=== PATIENT | male | born 1965 ===

== ENCOUNTER 2017-05-20 21:20 | Inpatient (IN) | payer OTHER, MEDICAID ==
[2017-05-20 22:11] LABS: BASO % 0.8 % (0.0-2.0); EOS # 0.1 K/uL (0.0-0.7); EOS % 1.3 % (0.0-4.0); HEMOGLOBIN 13.3 g/dL (12.0-18.0); LYMPH # 2.5 K/uL (1.0-4.3); LYMPH % 52.9 % (20.0-40.0); MEAN CELL VOLUME 106.4 fL (80.0-94.0); MEAN CORPUSCULAR HEMOGLOBIN 36.8 pg (27.0-31.0); MEAN CORPUSCULAR HGB CONC 34.6 g/dL (33.0-37.0); MONO # 0.6 K/uL (0.0-0.8); NEUT # 1.5 K/uL (1.8-7.0); NRBC % 0.1 % (0.0-2.0); RBC 3.6 Mil/uL (4.40-5.90); RED CELL DISTRIBUTION WIDTH 17.4 % (11.5-14.5); WHITE BLOOD COUNT 4.6 K/uL (4.8-10.8)
[2017-05-20 22:13] LABS: SQUAMOUS EPITHIAL < 1 /hpf (0-5); URINE BILIRUBIN NEGATIVE (NEGATIVE); URINE CLARITY Clear (Clear); URINE COLOR Yellow (YELLOW); URINE GLUCOSE (UA) NORMAL (Normal); URINE LEUKOCYTE ESTERASE NEG Leu/uL (Negative); URINE NITRATE NEGATIVE (NEGATIVE); URINE PROTEIN 2+ mg/dL (NEGATIVE)
[2017-05-20 22:21] LABS: ALBUMIN 3.9 g/dL (3.5-5.0); ALT/SGPT 59 U/L (21-72); AST/SGOT 159 U/L (17-59); BLOOD UREA NITROGEN 19 mg/dL (9-20); CALCIUM 7.4 mg/dl (8.6-10.4); GFR AFRICAN-AMERICAN > 60; GFR NON-AFRICAN AMERICAN > 60
[2017-05-20 22:24] LABS: URINE BACTERIA RARE (<OCC); URINE BLOOD NEGATIVE (NEGATIVE)
[2017-05-20 22:27] LABS: BARBITURATES, UR NEGATIVE (NEGATIVE); BENZODIAZEPINES, UR POSITIVE (NEGATIVE); OPIATES, UR POSITIVE (NEGATIVE); PHENCYCLIDINE, UR NEGATIVE (NEGATIVE)
--- NOTE | 2017-05-20 22:36 | C.PDOC ---
History Of Present Illness 52 year old male presents to the ER as a prescreen for ETOH and heroin detox. Patient last drank this morning and last used heroin yesterday. Denies physical complaints at this time. Time Seen by Provider: 05/20/17 21:37 Chief Complaint (Nursing): Substance Abuse History Per: Patient History/Exam Limitations: no limitations Onset/Duration Of Symptoms: Days Current Symptoms Are (Timing): Still Present Suicide/Self Injury Attempted (Context): None Modifying Factor(s): Alcohol, Narcotics Associated Symptoms: denies: Depression, Suicidal Thoughts, Suicidal Plan Involuntary Hold By: None Recent travel outside of the [place]: No Past Medical History Reviewed: Historical Data, Nursing Documentation, Vital Signs Vital Signs: Last Vital Signs Temp 97.9 F 05/21/17 03:57 Pulse 70 05/21/17 03:57 Resp 20 05/21/17 03:57 BP 117/82 05/21/17 03:57 Pulse Ox 95 05/21/17 03:57 - Medical History PMH: No Chronic Diseases Family History: States: No Known Family Hx - Social History Hx Alcohol Use: Yes Hx Substance Use: Yes - Immunization History Hx Tetanus Toxoid Vaccination: No Hx Influenza Vaccination: No Hx Pneumococcal Vaccination: No Review Of Systems Except As Marked, All Systems Reviewed And Found Negative. Cardiovascular: Negative for: Chest Pain, Palpitations Respiratory: Negative for: Shortness of Breath Gastrointestinal: Negative for: Nausea, Vomiting, Abdominal Pain, Diarrhea Physical Exam - Physical Exam Appears: Well, Non-toxic, No Acute Distress Skin: Normal Color, Warm, Dry Head: Atraumatic, Normacephalic Eye(s): bilateral: Normal Inspection Oral Mucosa: Moist Cardiovascular: Rhythm Regular Respiratory: Normal Breath Sounds, No Rales, No Rhonchi, No Wheezing Gastrointestinal/Abdominal: Normal Exam, Bowel Sounds, Soft, No Tenderness Neurological/Psych: Oriented x3 Gait: Steady ED Course And Treatment - Laboratory Results Result Diagrams: 05/20/17 22:08 05/20/17 22:08 O2 Sat by Pulse Oximetry: 96 (Room air) Pulse Ox Interpretation: Normal Progress Note: Blood work, UA, UDS ordered and reviewed. 11:00pm- Patient medically cleared. ETOH 409, pending sobriety for detox admission. 2:30AM- Patient arousable to verbal stimuli. Pending sobriety. 4:00am- Repeat alcohol 260. Patient sleeping comfortably, in no distress. 6:00am- Patient sleeping, arousable to verbal stimuli. Pending sobriety for detox admission. Disposition - Disposition Disposition Time: 07:00 Condition: STABLE Forms: [facility] (Turkmen) - Clinical Impression Clinical Impression: Alcohol dependence, Heroin dependence - Scribe Statement The provider has reviewed the documentation as recorded by the Scribe Steve Moran All medical record entries made by the Scribe were at my direction and personally dictated by me. I have reviewed the chart and agree that the record accurately reflects my personal performance of the history, physical exam, medical decision making, and the department course for this patient. I have also personally directed, reviewed, and agree with the discharge instructions and disposition. Physician Patient Turnover Patient Signed Over To: Stephen Caldera DO Handoff Comments: pending sobriety, acceptance by crisis for detox admission
[2017-05-21] MEDS ORDERED: Alum-Mag Hydrox-Simethicone Susp (30 mL) ONE (05:10)
--- NOTE | 2017-05-21 14:26 | PCM.BM ---
<Mundo Lin - Last Filed: 05/21/17 14:24> Treatment Plan Problems - Problems identified on initial assessmt ETOH Depend Time Initiated: 14:25 Assessment reference: NA Status: Active Treatment assets and liabiliti Patient Assests: cooperative, ADL independent Patient Liabilities: financial problems, poor support system, substance abuse - Milieu Protocol Maintain good personal hygiene: daily Encourage regular showers, daily Remind patient to perform daily oral care, daily Assist patient to perform ADL's Maintain personal safety: every shift Educate patient to report safety concerns to staff, every shift Monitor environment for contraband/sharps Medication safety: Monitor for expected outcome, potential side effects: every shift, Assess barriers to learning: every shift, Assess readiness for medication education: every shift <Vandana Ma - Last Filed: 05/26/17 11:51> Family Contact Family involvement: Patient does not wish Family/SO involvement Family contact: Patient declines to allow family contact at present - Goals for Treatment Patient goals for treatment: COMPLETE DETOX AND TRANSITION TO IOP AT [facility]. Discharge/Continuing Care - Education Needs Education Needs: Patient Medication, Patient Diagnosis/Disease Process, Patient Coping Skills, Patient Anger Management skills, Patient Placement options, Patient Community resources - Discharge Discharge Criteria: No longer exhibiting s/s of withdrawal, Reduction of target symptoms Discharge to:: Home - Treatment Team Participation Patient/Family/SO Statement: 05/26/17 11:51 "I WANNA GO TO [facility] OUTPATIENT..." Discussed with Family/SO: No Was Patient/Family/SO present at Treatment Team Meeting: Yes <Lenka King - Last Filed: 05/26/17 22:17> - Diagnosis (1) Alcohol dependence Status: Acute Interventions: 05/26/17 22:17 * Assess 7x/week regarding severity of withdrawal * Educate regarding risks, benefits, side effects and alternatives of medications * Use Motivational Interviewing for abstinence * Use CBT for relapse prevention * Medication management for withdrawal symptoms * Encourage medication assisted treatment * (2) Heroin dependence Status: Acute Interventions: 05/26/17 22:17 * Assess 7x/week regarding severity of withdrawal * Educate regarding risks, benefits, side effects and alternatives of medications * Use Motivational Interviewing for abstinence * Use CBT for relapse prevention * Medication management for withdrawal symptoms * Encourage medication assisted treatment *
[2017-05-21] MEDS ORDERED: Ondansetron Hcl 2 mg/2.5 ml Oral Sol PO PRN (15:00)
[2017-05-21] MEDS: Aluminum Hydroxide/Magnesium Hydroxide Susp (30 mL) PO PRN (17:20)
[2017-05-22] MEDS: Aluminum Hydroxide/Magnesium Hydroxide Susp (30 mL) PO PRN (08:41)
[2017-05-22] MEDS ORDERED: Buprenorphine Hydrochloride 2 mg SL ONE ×2 (13:55→16:45)
[2017-05-22] MEDS ORDERED: Buprenorphine Hydrochloride 8 mg SL ONE ×2 (14:00→16:00)
[2017-05-22] MEDS ORDERED: Buprenorphine Hydrochloride 2 mg SL SCH (16:30)
--- NOTE | 2017-05-22 20:31 | PCM.PSYCH ---
Initial Psychiatric Evaluation - Initial Psychiatric Evaluation Legal Status: Capacity Chief Complaint (in patient's own words): I DO NOT WANT TO USE ANY MORE Patient's Reaction to Hospitalization: I AM RELIEVED TO GET HELP. History of Present Illness and Precipitating Events: pT IS A 53 YEAR OLD [place] DOM[employer]ED, ,UNEMPLOYED MALE ON DISABILITY WHO IS SEEKING DETOX FROM HEROIN. hE CAME TO THE [place] WHEN HE WAS 30 YEAR OLD. HE HAS 2 ADULT CHILDREN. HIS MOTHER IS ,HIS FATHER IS ALIVE, HE HAS SIX BROTHERS AND SIX SISTERS. HE ISTHE YOUNGEST IN THE FAMILY.THERE IS NO FAMILY HISTORY OF MENTAL ILLNESS OR SUBSTANCE ABUSE FAR CAN BE DETERMINED. HE HAS NO LEGAL OR HISTORY. HE WENT UP TO THE 5TH GRADE. HE SNORTS HEROIN ABOUT 15 BAGS A DAY AND HE STARTED WHEN HE WAS 23. HE DRINKS A LITER OF VODKA A DAY AND STARTED AGE 28. HE HAS LITTLE ENERGY, LITTLE MOTIVATION. hE IS COMPLAINING OF BEING COLD. HAVING NAUSEA AND ACHES AND PAINS. HE ALSO HAS HAND TREMORS. Current Medications: Active Medications Generic Name Dose Route Start Last Admin Trade Name Freq PRN Reason Stop Dose Admin Al Hydrox/Mg Hydrox/Simethicone 30 ml 05/21/17 17:13 05/22/17 08:41 Maalox 30 Ml PO 30 ml Q8 PRN Administration Indigestion / Heartburn Amlodipine Besylate 10 mg 05/23/17 10:00 Norvasc PO DAILY GERALD Buprenorphine HCl 2 mg 05/22/17 16:30 05/22/17 16:33 Subutex SL Not Given DAILY GERALD Clonidine HCl 0.1 mg 05/21/17 13:06 05/22/17 13:47 Catapres PO 0.1 mg Q6H PRN Administration Symptoms of alcohol withdrawl Hydroxyzine HCl 25 mg 05/21/17 16:34 05/22/17 16:51 Atarax PO 25 mg Q6 PRN Administration Anxiety Ibuprofen 600 mg 05/21/17 17:12 05/22/17 08:39 Motrin Tab PO 600 mg Q8 PRN Administration Pain, moderate (4-7) Lorazepam 1 mg 05/22/17 20:00 Ativan PO 05/25/17 19:59 Q8H GERALD Taper Ondansetron HCl 4 mg 05/21/17 15:00 05/22/17 11:15 Zofran PO 4 mg Q6H PRN Administration Nausea/Vomiting Trazodone HCl 50 mg 05/21/17 16:35 05/21/17 21:35 Desyrel PO 50 mg HS PRN Administration Insomnia Past Psychiatric History - Past Psychiatric History Previous Treatment History: None Pertinent Medical Hx (Current Medical&Sleep Prob, Allergies): Allergies Allergy/AdvReac Type Severity Reaction Status Date / Time No Known Allergies Allergy Unverified 05/20/17 21:40 No Known Home Med 05/21/17 Review of Systems - Review of Systems Systems not reviewed;Unavailable: Other - Constitutional Constitutional: Chills, Sweats - EENT Eyes: UNREMARKABLE Ears: UNREMARKABLE Nose/Mouth/Throat: UNREMARKABLE - Cardiovascular Cardiovascular: UNREMARKABLE - Respiratory Respiratory: UNREMARKABLE - Gastrointestinal Gastrointestinal: Nausea - Genitourinary Genitourinary: UNREMARKABLE - Reproductive: Male Reproductive:Male: UNREMARKABLE - Musculoskeletal Musculoskeletal: Arthralgias, Myalgias - Integumentary Integumentary: UNREMARKABLE - Neurological Neurological: UNREMARKABLE - Psychiatric Psychiatric: UNREMARKABLE - Endocrine Endocrine: UNREMARKABLE - Hematologic/Lymphatic Hematologic: UNREMARKABLE Mental Status Examination - Personal Presentation Personal Presentation: Looks older than stated age - Affect Affect: Constricted - Motor Activity Motor Activity: Calm - Reliability in Providing Information Reliability in Providing Information: Good - Speech Speech: Organized - Mood Mood: Anxious - Formal Thought Process Formal Thought Process: No Impairment - Obsessions/Compulsions Obsessions: None Compulsions: None - Cognitive Functions Orientation: Person, Place, Situation, Time Sensorium: Alert Attention/Concentration: Attentive Abstract Thinking: [place] Estimate of Intelligence: Average Judgement: Intact, as evidence by: Good judgement Memory: Recent intact, as evidence by: Ability to recall events of the day, Remote intact, as evidenced by: Abilit to recall sig. life events - Risk Risk: Withdrawal - Strength & Assets Inventory Strength & Assets Inventory: Employment history, Life experience, Cooperative - Limitations Limitations: Living alone DSM 5 DX - DSM 5 DSM 5 Diagnosis: OPIOID USE DISORDER SEVERE OPIOID WITHDRAWAL ALCOHOL USE DISORDER SEVERE ALCOHOL WITHDRAWAL HTN - Recommended/Plan of Treatment Treatment Recommendations and Plan of Treatment: ALCOHOL WITHDRAWAL LIBRIUM TAPER ALCOHOL USE DISORDER GROUP MILIEU, RECREATIONAL THERAQPY NM CBT SUPPORTIVE PSYCHOTHERAPY OPIOID WITHDRAWAL SUBUTEX TAPER OPIOID USE DISORDER GROUPMILIEU [id number] THERAPY NM CBT SUPPORTIVE PSYCHOTHERAPY [facility] Projected ELOS: 5B DAYS Prognosis: GOOD Discharge Plan and Discharge Criteria: NO ACUTE SIGNS OF WITHDRAWAL - Smoking Cessation Smoking Cessation Initiated: Yes
[2017-05-23] MEDS ORDERED: Buprenorphine Hydrochloride 2 mg SL ONE (10:00)
--- NOTE | 2017-05-23 10:03 | PCM.PYCHPN ---
Psychiatric Progress Note - Psychiatric Progress Note Patient seen today, length of contact: 15 min Patient Chief Complaint: I am feeling little better.' Problems Identified/Issues Discussed: Patient seen and evaluated, chart reviewed and discussed with the nurse. He reports irritable mood but denies any feelings of hopelessness and helplessness. He still reports withdrawal symptoms including nausea, headaches, cramps and sweating. He denies any SI/HI/AVH. However, he remained isolated, confined and withdrawn. He is taking medication and denies any side effects. He needs more time for stabilization. Supportive therapy and psychoeducation were given. Medication Change: Yes (Ativan, subutex taper) Medical Record Reviewed: Yes Mental Status Examination - Cognitive Function Orientation: Person, Place, Situation, Time Memory: Intact Attention: WNL Concentration: Poor Association: WNL Fund of Knowledge: Poor - Mood Mood: Anxious - Affect Affect: Constricted - Speech Speech: Soft - Formal Thought Process Formal Thought Process: No Impairment - Suicidal Ideation Suicidal Ideation: No - Homicidal Ideation Homicidal Ideation: No Goal/Treatment Plan - Goal/Treatment Plan Need for Continued Stay: Severe depression anxiety, Severe functional impairment Progress Toward Problem(s) and Goals/Treatment Plan: Alcohol use disorder severe CBT Psychoeducation Supportive therapy, individual therapy Use MO for abstinence Alcohol withdrawal CBT Psychoeducation Supportive therapy, individual therapy Ativan taper when scoring Ativan PRN Opioid use disorder severe CBT Psychoeducation Supportive therapy, individual therapy Use MO for abstinence Opioid withdrawal CBT Psychoeducation Supportive therapy, individual therapy Clonidine when necessary Subutex taper - Smoking Cessation Smoking Cessation Initiated: No
[2017-05-24] MEDS: Buprenorphine Hydrochloride 2 mg SL SCH (09:54)
--- NOTE | 2017-05-24 12:54 | PCM.PYCHPN ---
Psychiatric Progress Note - Psychiatric Progress Note Patient seen today, length of contact: 15 min Patient Chief Complaint: "I feel good." Problems Identified/Issues Discussed: The pt is seen, chart reviewed, case discussed with staff. Support given, CBT and [place] used briefly No new symptoms reported, improving slowly and needs more time No SEs from medications, risks discussed. After care discussed Medication Change: Yes (Ativan, subutex taper; detox changes daily) Medical Record Reviewed: Yes Mental Status Examination - Cognitive Function Orientation: Person, Place, Situation, Time Memory: Intact Attention: WNL Concentration: WNL Association: WNL - Mood Mood: Neutral - Affect Affect: Constricted - Speech Speech: Soft - Formal Thought Process Formal Thought Process: No Impairment - Suicidal Ideation Suicidal Ideation: No - Homicidal Ideation Homicidal Ideation: No Goal/Treatment Plan - Goal/Treatment Plan Need for Continued Stay: Discharge may exacerbated symptoms, Severe functional impairment Progress Toward Problem(s) and Goals/Treatment Plan: Continue medications Support and psychoeducation daily Attend groups and activities daily After care planning by NOEL Estimated Date of D/C: 05/27/17 - Smoking Cessation Smoking Cessation Initiated: No
[2017-05-25] MEDS: Buprenorphine Hydrochloride 2 mg SL SCH (09:11)
--- NOTE | 2017-05-25 14:17 | PCM.PYCHPN ---
Psychiatric Progress Note - Psychiatric Progress Note Patient seen today, length of contact: 15 min Patient Chief Complaint: "I feel good." Problems Identified/Issues Discussed: The pt is seen, chart reviewed, case discussed with staff. Support given, CBT and [place] used briefly No new symptoms reported, improving slowly and needs more time No SEs from medications, risks discussed. After care discussed Medication Change: Yes (Ativan, subutex taper; detox changes daily) Medical Record Reviewed: Yes Mental Status Examination - Cognitive Function Orientation: Person, Place, Situation, Time Memory: Intact Attention: WNL Concentration: WNL Association: WNL - Mood Mood: Neutral - Affect Affect: Broad - Speech Speech: Soft - Formal Thought Process Formal Thought Process: No Impairment - Suicidal Ideation Suicidal Ideation: No - Homicidal Ideation Homicidal Ideation: No Goal/Treatment Plan - Goal/Treatment Plan Need for Continued Stay: Discharge may exacerbated symptoms, Severe functional impairment Progress Toward Problem(s) and Goals/Treatment Plan: Continue medications Support and psychoeducation daily Attend groups and activities daily After care planning by NOEL Estimated Date of D/C: 05/27/17
[2017-05-26] MEDS: Buprenorphine Hydrochloride 2 mg SL SCH (09:08)
[2017-05-26 14:02] VITALS: RESP 18
--- NOTE | 2017-05-26 20:49 | PCM.PYCHPN ---
Psychiatric Progress Note - Psychiatric Progress Note Patient seen today, length of contact: 15 min Patient Chief Complaint: "The pt is seen, chart reviewed, case discussed with staff. The pt is compliant with medications and reports no side-effects. Symptoms are improving but needs more time to stabilize. After care discussed, support and psychoeducation given. Medication Change: Yes (detox changes daily) Medical Record Reviewed: Yes Mental Status Examination - Cognitive Function Orientation: Person, Place, Situation, Time Memory: Intact Attention: WNL Concentration: WNL Association: WNL - Mood Mood: Neutral - Affect Affect: Broad - Speech Speech: Soft - Formal Thought Process Formal Thought Process: No Impairment - Suicidal Ideation Suicidal Ideation: No - Homicidal Ideation Homicidal Ideation: No Goal/Treatment Plan - Goal/Treatment Plan Need for Continued Stay: Discharge may exacerbated symptoms, Severe functional impairment Progress Toward Problem(s) and Goals/Treatment Plan: Subutex detox As needed medications Gabapentin for augmentation Attend groups and activities Supportive therapy and psychoeducation [place] for abstinence CBT for relapse prevention Encourage MAT Refer to rehab or IOP Attend self-help groups as well Estimated Date of D/C: 05/27/17
[2017-05-27] MEDS: Buprenorphine Hydrochloride 2 mg SL SCH (08:59)
[2017-05-27 09:53] VITALS: BP 117/80; PULSE 96; TEMP 97.6; O2SAT 99
--- NOTE | 2017-05-27 11:29 | PCM.PYCHDC ---
Mental Status Examination - Mental Status Examination Orientation: Person, Place, Situation, Time Memory: Intact Mood: Neutral Affect: Broad Speech: Appropriate, Soft Attention: WNL Concentration: WNL Association: WNL Formal Thought Process: No Impairment Suicidal Ideation: No Current Homicidal Ideation?: No Discharge Summary - Discharge Note Reason for Hospitalization: Heroin Detox Consultations:: List each consultation separately and include: 1. Reason for request. 2. Findings. 3. Follow-up Summary of Hospital Course include:: 1. Description of specific treatment plan utilized for patients during their course of treatmen. 2. Summarize the time- course for resolution of acute symptoms and/or regressed behaviors. 3. Describe issues identified and worked on during hospitalization. 4. Describe medication utilized. 5. Describe medical problems identified and treated. 6. Reassessment of suicide risk Summary of Hospital Course: HPI: Patient is a 53 year old [place] domicile, , unemployed male on disability who is seeking detox from heroin. He came to the when he was 30 years old. He has 2 adult children. His mother is , his father is alive. He has 6 brothers and 6 sisters. He is the youngest in the family. There is no family history of mental illness or substance abuse as far as he can be determined. He has no legal or history. He went up to the 5th grade. He snorts heroin, about 15 bags a day and he started when he was 23. He drinks a liter of vodka a day and started age 28. He has little energy, little motivation. He is complaining of being cold. Having nausea and aches and pains. He also has hand tremors. Hospital Course: Theptwas admitted and started on treatment with psychotherapy, support, psychoeducationand medications. PA and CBT used. Theptattended groups and activities, as well as milieu therapy. All the risks and benefits of medications are discussed and the patient understood and agreed. Theptimproved with the treatments provided. After care discussedwith thepatient. - Final Diagnosis (DSM 5) Condition upon Discharge: STABLE DSM 5: Alcohol Use Disorder Disposition: HOME/ ROUTINE Follow-up Treatment Plan: Continue below medicationsafter discharge. Follow after care wayne discussed. Use relapse prevention skills. Return to ERor call 911if suicidal, homicidalor symptoms relapse. Stay away from stress, alcohol and drugs. See primary doctor regularlyand get labs. Prescriptions/Medication Reconciliation: amLODIPine [Norvasc] 10 mg PO DAILY #30 tab traZODone [Desyrel] 50 mg PO HS PRN #30 tab PRN Reason: Insomnia - Smoking Cessation Smoking Cessation Medication prescribed: Yes
== END 2017-05-27 11:30 | disposition home or self-care (01) | DRG 895 ==
LOC: C.ER 21:20 → C.7D 05-21 11:38
PROVIDERS: ADMIT Psychiatry & Neurology Psychiatry; ATTEND Psychiatry & Neurology Psychiatry
PROC: HZ2ZZZZ Detoxification Services for Substance Abuse Treatment (ICD-10-PCS; principal; 2017-05-21)
PROC: HZ52ZZZ Individual Psychotherapy for Substance Abuse Treatment, Cognitive-Behavioral (ICD-10-PCS; 2017-05-21)
PROC: HZ42ZZZ Group Counseling for Substance Abuse Treatment, Cognitive-Behavioral (ICD-10-PCS; 2017-05-21)
PROC: HZ59ZZZ Individual Psychotherapy for Substance Abuse Treatment, Supportive (ICD-10-PCS; 2017-05-21)
PROC: HZ56ZZZ Individual Psychotherapy for Substance Abuse Treatment, Psychoeducation (ICD-10-PCS; 2017-05-21)
PROC: HZ46ZZZ Group Counseling for Substance Abuse Treatment, Psychoeducation (ICD-10-PCS; 2017-05-21)
DX: F10.230 Alcohol dependence with withdrawal, uncomplicated (principal); F11.23 Opioid dependence with withdrawal; Y90.9 Presence of alcohol in blood, level not specified

== ENCOUNTER 2017-08-06 19:30 | Emergency (ER) | payer OTHER ==
[2017-08-06 19:51] VITALS: BP 153/102; PULSE 112; RESP 20; TEMP 98.2; O2SAT 95
--- NOTE | 2017-08-06 20:06 | C.PDOC ---
History Of Present Illness 52 y/o male, whose PMH includes HTN, and substance abuse ETOH and heroin, who presents to the ED, accompanied by friend, requesting a detoxification bed. Patient also reports having vomiting and diarrhea for a few days. His last drink was yesterday. patient denies other complaints. Time Seen by Provider: 08/06/17 19:55 Chief Complaint (Nursing): Substance Abuse History Per: Patient History/Exam Limitations: no limitations Onset/Duration Of Symptoms: Days Current Symptoms Are (Timing): Still Present Suicide/Self Injury Attempted (Context): None Modifying Factor(s): Alcohol, Narcotics Recent travel outside of the [place]: No Additional History Per: Friend Past Medical History Reviewed: Historical Data, Nursing Documentation, Vital Signs Vital Signs: Last Vital Signs Temp 98.2 F 08/06/17 19:46 Pulse 112 H 08/06/17 19:46 Resp 20 08/06/17 19:46 BP 153/102 H 08/06/17 19:46 Pulse Ox 95 08/06/17 20:10 - Medical History PMH: HTN Denies: Anxiety, Bipolar Disorder, Depression, Diabetes, Hepatitis, HIV, Paranoia, Post Traumatic Stress Disorder, Chronic Kidney Disease, Schizophrenia , Seizures, Sexually Transmitted Disease Surgical History: Denies: Appendectomy - [facility] DETOXIFICATION SERVICES FOR SUBSTANCE ABUSE TREATMENT (05/21/17) GROUP INSIDE WIRER FOR SUBSTANCE ABUSE TREATMENT, PSYCHOEDUCATION (05/21/17) GROUP INSIDE WIRER FOR SUBSTANCE ABUSE, COGNITIVE BEHAVIORAL (05/21/17) INDIV PSYCHOTHERAPY FOR SUBSTANCE ABUSE TREATMENT, SUPPORT (05/21/17) INDIV PSYCHOTHERAPY FOR SUBSTANCE ABUSE, COGNITIV BEHAVIORAL (05/21/17) INDIV PSYCHOTHERAPY FOR SUBSTANCE ABUSE, PSYCHOEDUCATION (05/21/17) Family History: States: Unknown Family Hx - Social History Hx Alcohol Use: Yes Hx Substance Use: Yes - Immunization History Hx Tetanus Toxoid Vaccination: No Hx Influenza Vaccination: Yes Hx Pneumococcal Vaccination: No Review Of Systems Except As Marked, All Systems Reviewed And Found Negative. Constitutional: Negative for: Fever Cardiovascular: Negative for: Chest Pain Gastrointestinal: Positive for: Vomiting, Diarrhea Psych: Positive for: Withdrawal Physical Exam - Physical Exam Appears: Well, No Acute Distress Skin: Normal Color, Warm, Dry Head: Atraumatic, Normacephalic Eye(s): bilateral: Normal Inspection, PERRL, EOMI Cardiovascular: Rhythm Regular Respiratory: Normal Breath Sounds, No Rales, No Rhonchi, No Wheezing Gastrointestinal/Abdominal: Normal Exam, Bowel Sounds (active), Soft, No Distention, No Guarding, No Rebound Neurological/Psych: Oriented x3, Normal Speech, Normal Motor ED Course And Treatment O2 Sat by Pulse Oximetry: 95 (room air) Pulse Ox Interpretation: Normal Medical Decision Making Medical Decision Making: Progress Notes: Case was discussed with psych for detox availability, but there is currently none. Upon informing patient about this, him and his friend did not want any further evaluation for his vomiting and diarrhea, and states they will go to another medical center where they have beds available. abd soft no ttp. no tremors. ambulatory steady gait. Disposition - Disposition Referrals: Alcoholics Anonymous [Outside] [facility] [Outside] [facility] [Outside] Disposition: HOME/ ROUTINE Disposition Time: 08:00 Condition: STABLE Additional Instructions: return to er with worsening symptoms or concerns. Instructions: Nausea and Vomiting, Adult, Alcohol Abuse and Alcoholism (DC), Drug Abuse Treatment Forms: [employer] ([place]) - Clinical Impression Clinical Impression: Alcohol dependence, Vomiting and diarrhea - Scribe Statement The provider has reviewed the documentation as recorded by the Scribe Scribe Attestation: Elva Carr MD Scribe Attestation: All medical record entries made by the Scribe were at my direction and personally dictated by me. I have reviewed the chart and agree that the record accurately reflects my personal performance of the history, physical exam, medical decision making, and the department course for this patient. I have also personally directed, reviewed, and agree with the discharge instructions and disposition.
== END 2017-08-06 20:05 | disposition home or self-care (01) ==
LOC: C.ER 19:30
DX: F10.20 Alcohol dependence, uncomplicated (principal); Y90.9 Presence of alcohol in blood, level not specified; R11.10 Vomiting, unspecified; R19.7 Diarrhea, unspecified

== ENCOUNTER 2017-08-12 14:36 | Inpatient (IN) | payer OTHER, MEDICAID ==
[2017-08-12 14:53] VITALS: BMI 25.9
[2017-08-12 16:03] LABS: BASO % 0.9 % (0.0-2.0); EOS % 1.2 % (0.0-4.0); HEMOGLOBIN 13.1 g/dL (12.0-18.0); LYMPH # 1.9 K/uL (1.0-4.3); MEAN CELL VOLUME 107.9 fL (80.0-94.0); MEAN CORPUSCULAR HEMOGLOBIN 37.3 pg (27.0-31.0); MEAN CORPUSCULAR HGB CONC 34.6 g/dL (33.0-37.0); MEAN PLATELET VOLUME 9.2 fL (7.2-11.7); MONO # 0.4 K/uL (0.0-0.8); MONO % 12.4 % (0.0-10.0); NEUT # 0.7 K/uL (1.8-7.0); NEUT % 22.5 % (50.0-75.0); NRBC % 0.3 % (0.0-2.0); RBC 3.51 Mil/uL (4.40-5.90); RED CELL DISTRIBUTION WIDTH 18.5 % (11.5-14.5); WHITE BLOOD COUNT 3.1 K/uL (4.8-10.8)
[2017-08-12 16:19] LABS: ALBUMIN 4.1 g/dL (3.5-5.0); ALT/SGPT 90 U/L (21-72); AST/SGOT 332 U/L (17-59); BLOOD UREA NITROGEN 12 mg/dL (9-20); CALCIUM 8.3 mg/dl (8.6-10.4); GFR AFRICAN-AMERICAN > 60; GFR NON-AFRICAN AMERICAN > 60
[2017-08-12 16:20] LABS: SQUAMOUS EPITHIAL < 1 /hpf (0-5); URINE BACTERIA RARE (<OCC); URINE BILIRUBIN NEGATIVE (NEGATIVE); URINE BLOOD 2+ (NEGATIVE); URINE CLARITY Hazy (Clear); URINE COLOR Amber (YELLOW); URINE GLUCOSE (UA) NORMAL (Normal); URINE LEUKOCYTE ESTERASE NEG Leu/uL (Negative); URINE PROTEIN 3+ mg/dL (NEGATIVE)
[2017-08-12 16:40] LABS: BARBITURATES, UR NEGATIVE (NEGATIVE); BENZODIAZEPINES, UR NEGATIVE (NEGATIVE); PHENCYCLIDINE, UR NEGATIVE (NEGATIVE)
[2017-08-12 16:46] LABS: OPIATES, UR POSITIVE (NEGATIVE)
--- NOTE | 2017-08-12 17:12 | C.PDOC ---
History Of Present Illness The patient is here for detox from heroin and alcohol. The patient reports that he drinks and uses daily. Denies nausea, vomiting, diarrhea, GI bleeding, chest pain, SOB. Time Seen by Provider: 08/12/17 14:59 Chief Complaint (Nursing): Substance Abuse History Per: Patient History/Exam Limitations: no limitations Onset/Duration Of Symptoms: Days Current Symptoms Are (Timing): Still Present Suicide/Self Injury Attempted (Context): None Recent travel outside of the [place]: No Past Medical History Vital Signs: Last Vital Signs Temp 97.5 F L 08/12/17 14:53 Pulse 104 H 08/12/17 14:53 Resp 19 08/12/17 14:53 BP 128/87 08/12/17 14:53 Pulse Ox 97 08/12/17 18:05 - Medical History PMH: HTN Denies: Anxiety, Bipolar Disorder, Depression, Diabetes, Hepatitis, HIV, Paranoia, Post Traumatic Stress Disorder, Chronic Kidney Disease, Schizophrenia , Seizures, Sexually Transmitted Disease Surgical History: Denies: Appendectomy - [facility] Procedures DETOXIFICATION SERVICES FOR SUBSTANCE ABUSE TREATMENT (05/21/17) GROUP FISH ICER FOR SUBSTANCE ABUSE TREATMENT, PSYCHOEDUCATION (05/21/17) GROUP FISH ICER FOR SUBSTANCE ABUSE, COGNITIVE BEHAVIORAL (05/21/17) INDIV PSYCHOTHERAPY FOR SUBSTANCE ABUSE TREATMENT, SUPPORT (05/21/17) INDIV PSYCHOTHERAPY FOR SUBSTANCE ABUSE, COGNITIV BEHAVIORAL (05/21/17) INDIV PSYCHOTHERAPY FOR SUBSTANCE ABUSE, PSYCHOEDUCATION (05/21/17) Family History: States: Unknown Family Hx - Social History Hx Tobacco Use: No Hx Alcohol Use: Yes Hx Substance Use: Yes - Immunization History Hx Tetanus Toxoid Vaccination: No Hx Influenza Vaccination: Yes (2018) Hx Pneumococcal Vaccination: No Review Of Systems Except As Marked, All Systems Reviewed And Found Negative. Physical Exam - Physical Exam Appears: Non-toxic, No Acute Distress Skin: Normal Color, Warm, No Rash Head: Atraumatic, Normacephalic Eye(s): bilateral: Normal Inspection, PERRL, EOMI Oral Mucosa: Moist Throat: No Erythema, No Exudate Neck: Normal ROM, Supple Chest: Symmetrical Cardiovascular: Rhythm Regular, No Friction Rub, No Murmur Respiratory: Normal Breath Sounds Gastrointestinal/Abdominal: Bowel Sounds (active), Soft, No Tenderness, Distention (mild) Back: Normal Inspection, No CVA Tenderness Extremity: Normal ROM, No Tenderness, No Swelling Neurological/Psych: Oriented x3, Normal Speech, Normal Motor Gait: Steady ED Course And Treatment - Laboratory Results Result Diagrams: 08/12/17 15:56 08/12/17 15:56 O2 Sat by Pulse Oximetry: 97 (on RA) Pulse Ox Interpretation: Normal Medical Decision Making Medical Decision Making: The abdominal has been present for 2 months and is chronic. Abdomen is mild distended, soft and non-tender and patient is tolerating PO normally. Patient is complaining of tremors and Librium PO ordered. The patient is medically cleared for detox. Disposition - Disposition Disposition: HOSPITALIZED Disposition Time: 18:04 Condition: FAIR Forms: [employer] (German) - POA Present On Arrival: None - Clinical Impression Clinical Impression: Heroin dependence, Alcohol dependence
--- NOTE | 2017-08-13 08:49 | RAD ---
HISTORY: Possible Pneumonia COMPARISON: 08/13/2017. FINDINGS: LUNGS: The lungs are well inflated and clear. There are stable small calcified granulomas in the right upper lobe. PLEURA: No significant pleural effusion identified, no pneumothorax apparent. CARDIOVASCULAR: Normal. OSSEOUS STRUCTURES: No significant abnormalities. VISUALIZED UPPER ABDOMEN: Normal. OTHER FINDINGS: None. IMPRESSION: No active pulmonary disease.
--- NOTE | 2017-08-13 18:34 | PCM.PSYCH ---
Initial Psychiatric Evaluation - Initial Psychiatric Evaluation Type of Admission: Voluntary Legal Status: Capacity Chief Complaint (in patient's own words): I want help for my substance use History of Present Illness and Precipitating Events: Patient is a 52 years old, , unemployed, on SSI, male with no previous psychiatric history was admitted due to withdrawing from alcohol and heroin. Patient was evaluated with Armenian-speaking staff on the unit. Patient reported he started drinking alcohol at 6 years of age. Alcohol is his drug of choice. Currently he was drinking 4 pints of alcohol daily. Last used yesterday. His longest period of abstinence was 5 years, 5 years ago history of one previous detox but no rehabilitation. Started using heroin at 16 years of age, increased gradually. Currently he was using 10 bags daily, intranasally. Last used yesterday. Denied use of any other drugs including cocaine and cannabis. Denied smoking cigarettes. Patient was born in [place], moved to [facility] 20 years ago with family. Not working and is on SSI. and has 6 grown up children. Lives with friends. Patient wants to go back to [place] after detox. Current Medications: Active Medications Generic Name Dose Route Start Last Admin Trade Name Freq PRN Reason Stop Dose Admin Gabapentin 300 mg 08/13/17 18:00 08/13/17 17:31 Neurontin PO 300 mg BID GERALD Administration Hydroxyzine HCl 25 mg 08/13/17 15:40 Atarax PO Q6 PRN Anxiety Lorazepam 2 mg 08/13/17 01:45 08/13/17 17:31 Ativan PO 08/18/17 01:44 2 mg Q4H GERALD Administration Taper Lorazepam 1 mg 08/13/17 12:06 08/13/17 15:41 Ativan PO 1 mg Q6 PRN Administration Anxiety Methadone HCl 15 mg 08/14/17 10:00 Methadone PO 08/17/17 09:59 Q24H GERALD Taper Trazodone HCl 100 mg 08/13/17 22:00 Desyrel PO HS GERALD Past Psychiatric History - Past Psychiatric History Previous Treatment History: None History of Abuse: None reported History of ETOH/Drug Use: See HPI History of Family Illness: None reported Pertinent Medical Hx (Current Medical&Sleep Prob, Allergies): Allergies Allergy/AdvReac Type Severity Reaction Status Date / Time No Known Allergies Allergy Verified 08/12/17 14:51 Labetalol [Trandate] 100 mg PO BID 08/12/17 Thiamine Mononitrate [Optimum Vitamin B-1] 100 mg PO DAILY 08/12/17 Review of Systems - Psychiatric Psychiatric: Anxiety, Other Mental Status Examination - Personal Presentation Personal Presentation: Looks stated age - Affect Affect: Other (Appropriate) - Motor Activity Motor Activity: Calm - Reliability in Providing Information Reliability in Providing Information: Fair - Speech Speech: Organized - Mood Mood: Anxious - Formal Thought Process Formal Thought Process: No Impairment Additional comments: None - Hallucinations/Delusions Hallucinations: Other (None reported) Delusions: Other - Obsessions/Compulsions Obsessions: None Compulsions: None - Cognitive Functions Orientation: Person, Place, Situation, Time Sensorium: Alert Attention/Concentration: Attentive Abstract Thinking: [place] Estimate of Intelligence: Average Judgement: Intact, as evidence by: Insight regarding need for hospitalization Memory: Recent intact, as evidence by: Ability to recall events of the day, Remote intact, as evidenced by: Ability to recall historical events - Risk Risk: Withdrawal, Diminished functioning - Strength & Assets Inventory Strength & Assets Inventory: Cooperative - Limitations Limitations: Other DSM 5 DX - DSM 5 DSM 5 Diagnosis: Alcohol use disorder severe Opiate use disorder severe - Recommended/Plan of Treatment Treatment Recommendations and Plan of Treatment: Patient education Supportive therapy CBT for relapse prevention NV for abstinence Will start methadone for opiate withdrawal symptoms We will start Ativan detox protocol for alcohol withdrawal symptoms Other when necessary medications Patient wants to go to [place] after finishing detox. Projected ELOS: 4-5 days - Smoking Cessation Smoking Cessation Initiated: No Reason for not providing: Patient does not smoke cigarettes
--- NOTE | 2017-08-14 22:25 | PCM.PYCHPN ---
Psychiatric Progress Note - Psychiatric Progress Note Patient seen today, length of contact: 15 Minutes Patient Chief Complaint: I'm feeling little better Problems Identified/Issues Discussed: Patient seen, chart reviewed, case discussed with the staff. Issues related to illness and treatment were discussed with the patient. Reported compliant with treatment with no adverse affects. Tolerating treatment very well. Reported feeling better, still has withdrawal symptoms. Mood reported as anxious. Affect appropriate. Encouraged time of evaluation, patient was awake alert oriented 3, had no delusions, no auditory or visual hallucinations, no suicidal ideations or homicidal ideations. Medical Problems: None reported Diagnostic Results: Reviewed DSM 5 Symptoms Update: Some improvement with treatment Medication Change: No Medical Record Reviewed: Yes Mental Status Examination - Cognitive Function Orientation: Person, Place, Situation, Time Memory: Intact Attention: WNL Concentration: WNL Association: [facility] Fund of Knowledge: [facility] Decription of patient's judgement and insights: Fair - Mood Mood: Anxious - Affect Affect: Other (Appropriate) - Speech Speech: Appropriate - Formal Thought Process Formal Thought Process: No Impairment Psychotic Thoughts and Behaviors: None - Suicidal Ideation Suicidal Ideation: No - Homicidal Ideation Homicidal Ideation: No Goal/Treatment Plan - Goal/Treatment Plan Need for Continued Stay: Remain at risks for inpatient hospitalization, Discharge may exacerbated symptoms, Severe functional impairment Progress Toward Problem(s) and Goals/Treatment Plan: Patient education Supportive therapy CBT for relapse prevention [place] for abstinence Continue treatment as before. Estimated Date of D/C: 08/18/17 - Smoking Cessation Smoking Cessation Initiated: No Reason for not providing: Patient doesn't smoke cigarettes
--- NOTE | 2017-08-15 19:41 | PCM.PYCHPN ---
Psychiatric Progress Note - Psychiatric Progress Note Patient seen today, length of contact: 15 Minutes Patient Chief Complaint: I'm feeling much better Problems Identified/Issues Discussed: Patient seen, chart reviewed, case discussed with the staff. Issues related to illness and treatment were discussed with the patient. Reported compliant with treatment with no adverse affects. Tolerating treatment very well. Reported feeling better, still has a few withdrawal symptoms. Mood reported as okay. Affect appropriate. Encouraged time of evaluation, patient was awake alert oriented 3, had no delusions, no auditory or visual hallucinations, no suicidal ideations or homicidal ideations. Medical Problems: None reported Diagnostic Results: Reviewed DSM 5 Symptoms Update: Improving with treatment Medication Change: No Medical Record Reviewed: Yes Mental Status Examination - Cognitive Function Orientation: Person, Place, Situation, Time Memory: Intact Attention: WNL Concentration: WNL Association: [facility] Fund of Knowledge: [facility] Decription of patient's judgement and insights: Fair - Mood Mood: Anxious (Much less than before) - Affect Affect: Other (Appropriate) - Speech Speech: Appropriate - Formal Thought Process Formal Thought Process: No Impairment Psychotic Thoughts and Behaviors: None - Suicidal Ideation Suicidal Ideation: No - Homicidal Ideation Homicidal Ideation: No Goal/Treatment Plan - Goal/Treatment Plan Need for Continued Stay: Remain at risks for inpatient hospitalization, Discharge may exacerbated symptoms, Severe functional impairment Progress Toward Problem(s) and Goals/Treatment Plan: Patient education Supportive therapy CBT for relapse prevention [place] for abstinence Continue treatment as before Estimated Date of D/C: 08/18/17 - Smoking Cessation Smoking Cessation Initiated: No Reason for not providing: Patient doesn't smoke cigarettes
[2017-08-15 21:22] VITALS: RESP 18
[2017-08-16 04:09] VITALS: O2SAT 97
[2017-08-16 10:26] VITALS: TEMP 98.2
[2017-08-16 13:37] VITALS: BP 129/95; PULSE 94
[2017-08-16] MEDS ORDERED: Multiple Vitamins Tab PO SCH (16:00)
--- NOTE | 2017-08-16 16:30 | PCM.PYCHPN ---
Psychiatric Progress Note - Psychiatric Progress Note Patient seen today, length of contact: 15 Minutes Patient Chief Complaint: I'm feeling much better Problems Identified/Issues Discussed: Patient seen, chart reviewed, case discussed with the staff. Issues related to illness and treatment were discussed with the patient. Reported compliant with treatment with no adverse affects. Tolerating treatment very well. Reported feeling better, still has a very few withdrawal symptoms. Mood reported as good. Affect appropriate. Encouraged time of evaluation, patient was awake alert oriented 3, had no delusions, no auditory or visual hallucinations, no suicidal ideations or homicidal ideations. Medical Problems: None reported Diagnostic Results: Reviewed DSM 5 Symptoms Update: Improving with treatment Medication Change: No Medical Record Reviewed: Yes Mental Status Examination - Cognitive Function Orientation: Person, Place, Situation, Time Memory: Intact Attention: WNL Concentration: WNL Association: [facility] Fund of Knowledge: [facility] Decription of patient's judgement and insights: Fair - Mood Mood: Anxious (Much less than before) - Affect Affect: Other (Appropriate) - Speech Speech: Appropriate - Formal Thought Process Formal Thought Process: No Impairment Psychotic Thoughts and Behaviors: None - Suicidal Ideation Suicidal Ideation: No - Homicidal Ideation Homicidal Ideation: No Goal/Treatment Plan - Goal/Treatment Plan Need for Continued Stay: Remain at risks for inpatient hospitalization, Discharge may exacerbated symptoms, Severe functional impairment Progress Toward Problem(s) and Goals/Treatment Plan: Patient education Supportive therapy CBT for relapse prevention MT for abstinence Continue treatment as before Estimated Date of D/C: 08/18/17 - Smoking Cessation Smoking Cessation Initiated: No Reason for not providing: Patient doesn't smoke cigarettes
--- NOTE | 2017-08-16 18:53 | CP.PCM.PN ---
Subjective - Date & Time of Evaluation Date of Evaluation: 08/16/17 Time of Evaluation: 18:51 - Subjective Subjective: Patient signed out AMA today at 6:50pm. He was AAOx3 (knew his name, where he was, the day, and why he was here). He was told of the consequences of signing out AMA including delerium tremens, seizure, heart attack, stroke, and . He understood all this, had good insight and still wanted to sign out AMA. Objective - Vital Signs/Intake and Output Vital Signs (last 24 hours): Temp Pulse Resp BP Pulse Ox 98.2 F 94 H 18 129/95 H 97 08/16/17 09:00 08/16/17 13:36 08/16/17 09:00 08/16/17 13:36 08/16/17 09:00 - Medications Medications: Current Medications Clonidine HCl (Catapres) 0.1 mg PO Q8 PRN PRN Reason: opiate withdrawal Last Admin: 08/16/17 16:59 Dose: 0.1 mg Folic Acid (Folic Acid) 1 mg PO DAILY [facility] Last Admin: 08/16/17 18:19 Dose: Not Given Gabapentin (Neurontin) 300 mg PO BID [facility] Last Admin: 08/16/17 17:01 Dose: 300 mg Hydroxyzine HCl (Atarax) 25 mg PO Q6 PRN PRN Reason: Anxiety Last Admin: 08/16/17 16:59 Dose: 25 mg Lorazepam (Ativan) 1 mg PO Q8H [facility] PRN Reason: Taper Stop: 08/18/17 01:44 Last Admin: 08/16/17 16:59 Dose: 1 mg Lorazepam (Ativan) 1 mg PO Q6 PRN PRN Reason: Anxiety Last Admin: 08/16/17 14:29 Dose: 1 mg Methadone HCl (Methadone) 5 mg PO Q24H [facility] PRN Reason: Taper Stop: 08/17/17 09:59 Last Admin: 08/16/17 09:49 Dose: 5 mg Multivitamins (Hexavitamin) 1 tab PO DAILY [facility] Last Admin: 08/16/17 18:19 Dose: Not Given Thiamine HCl (Vitamin B1 Tab) 100 mg PO DAILY [facility] Last Admin: 08/16/17 18:19 Dose: Not Given Trazodone HCl (Desyrel) 100 mg PO HS [facility] Last Admin: 08/15/17 22:23 Dose: 100 mg - Labs Labs: 08/12/17 15:56 08/12/17 15:56
--- NOTE | 2017-08-16 20:26 | PCM.PYCHDC ---
Mental Status Examination - Mental Status Examination Orientation: Person, Place, Situation, Time Memory: Intact (please see progress note dated 08/16/[address] Johnson) Discharge Summary - Discharge Note Reason for Hospitalization: Patient is a 52 years old, , unemployed, on SSI, male with no previous psychiatric history was admitted due to withdrawing from alcohol and heroin. Patient was evaluated with Brazilian-speaking staff on the unit. Patient reported he started drinking alcohol at 6 years of age. Alcohol is his drug of choice. Currently he was drinking 4 pints of alcohol daily. Last used yesterday. His longest period of abstinence was 5 years, 5 years ago history of one previous detox but no rehabilitation. Started using heroin at 16 years of age, increased gradually. Currently he was using 10 bags daily, intranasally. Last used yesterday. Denied use of any other drugs including cocaine and cannabis. Denied smoking cigarettes. Patient was born in [place], moved to [facility] 20 years ago with family. Not working and is on SSI. and has 6 grown up children. Lives with friends. Patient wants to go back to [place] after detox. Consultations:: List each consultation separately and include: 1. Reason for request. 2. Findings. 3. Follow-up Summary of Hospital Course include:: 1. Description of specific treatment plan utilized for patients during their course of treatmen. 2. Summarize the time- course for resolution of acute symptoms and/or regressed behaviors. 3. Describe issues identified and worked on during hospitalization. 4. Describe medication utilized. 5. Describe medical problems identified and treated. 6. Reassessment of suicide risk Summary of Hospital Course: The pt was admitted and started on treatment with psychotherapy, support, psychoeducation and medications. PA and CBT used. The pt attended some groups and activities, as well as milieu therapy. All the risks and benefits of medications were discussed and the patient understood and agreed. The pt requested earlier discharge. Pt was seen and evaluated by on-call resident who educate this patient regarding opioid and alcohol withdrawal symptoms including but not limited to nausea, headache, hot and cold sweat, relapse on etoh and opioid, seizure, DT and . The on-call resident recommend pt to complete the detox treatment. The pt stated that he understand importance of completion of treatment and he verbalized back the consequences of incomplete treatment. He declined to stay in the hospital and leave AMA. Pt verbalized understanding and he stated that he will return to nearest ER in case of withdrawal symptoms.At the time of discharge and as per on-call doctor this pt denied SI,HI, intent or plan. - Final Diagnosis (DSM 5) Condition upon Discharge: FAIR DSM 5: Alcohol use disorder severe Opiate use disorder severe Disposition: AGAINST MEDICAL ADVICE Follow-up Treatment Plan: Follow after care plan as discussed. Use relapse prevention copying skills Return to ER or call 911 if suicidal, homicidal or symptoms relapse. Stay away from stress, alcohol and drugs. See primary doctor once a year. - Smoking Cessation Smoking Cessation Medication prescribed: No - Antipsychotic Medications Pt discharged on 2 or more routine antipsychotic medications: No
== END 2017-08-16 19:00 | disposition left against medical advice (07) | DRG 894 ==
LOC: C.ER 14:36 → C.7D 18:05
PROC: HZ2ZZZZ Detoxification Services for Substance Abuse Treatment (ICD-10-PCS; principal; 2017-08-12)
PROC: HZ52ZZZ Individual Psychotherapy for Substance Abuse Treatment, Cognitive-Behavioral (ICD-10-PCS; 2017-08-12)
PROC: HZ59ZZZ Individual Psychotherapy for Substance Abuse Treatment, Supportive (ICD-10-PCS; 2017-08-12)
PROC: HZ56ZZZ Individual Psychotherapy for Substance Abuse Treatment, Psychoeducation (ICD-10-PCS; 2017-08-12)
PROC: HZ42ZZZ Group Counseling for Substance Abuse Treatment, Cognitive-Behavioral (ICD-10-PCS; 2017-08-12)
PROC: HZ46ZZZ Group Counseling for Substance Abuse Treatment, Psychoeducation (ICD-10-PCS; 2017-08-12)
DX: F11.23 Opioid dependence with withdrawal (principal); F10.230 Alcohol dependence with withdrawal, uncomplicated; I10 Essential (primary) hypertension; Y90.8 Blood alcohol level of 240 mg/100 ml or more

== ENCOUNTER 2018-02-07 11:01 | Inpatient (IN) | payer OTHER ==
[2018-02-07 11:01] VITALS: BMI 25.9
[2018-02-07 11:57] LABS: MONO # 0.2 K/uL (0.0-0.8)
[2018-02-07 11:58] LABS: URINE BILIRUBIN 1+ (NEGATIVE); URINE BLOOD 2+ (NEGATIVE); URINE CLARITY Clear (Clear); URINE COLOR Amber (YELLOW); URINE GLUCOSE (UA) NORMAL (Normal); URINE HYALINE CAST 0-2 /lpf (0-2); URINE LEUKOCYTE ESTERASE NEG Leu/uL (Negative); URINE PROTEIN 3+ mg/dL (NEGATIVE)
[2018-02-07 12:02] LABS: BASO % 1.3 % (0.0-2.0); EOS % 0.2 % (0.0-4.0); LYMPH # 0.8 K/uL (1.0-4.3); LYMPH % 41.5 % (20.0-40.0); MEAN CORPUSCULAR HEMOGLOBIN 30.7 pg (27.0-31.0); MEAN CORPUSCULAR HGB CONC 31.8 g/dL (33.0-37.0); MEAN PLATELET VOLUME 9.8 fL (7.2-11.7); MONO % 10.1 % (0.0-10.0); NEUT # 0.9 K/uL (1.8-7.0); NEUT % 46.9 % (50.0-75.0); NRBC % 0.1 % (0.0-2.0); RBC 2.6 Mil/uL (4.40-5.90); RED CELL DISTRIBUTION WIDTH 21.2 % (11.5-14.5)
[2018-02-07 12:06] LABS: MEAN CELL VOLUME 96.8 fL (80.0-94.0)
[2018-02-07 12:07] LABS: ALBUMIN 3.6 g/dL (3.5-5.0); ALT/SGPT 90 U/L (21-72); AST/SGOT 449 U/L (17-59); BLOOD UREA NITROGEN 16 mg/dL (9-20); GFR NON-AFRICAN AMERICAN > 60; WHITE BLOOD COUNT 1.9 K/uL (4.8-10.8)
--- NOTE | 2018-02-07 12:18 | C.PDOC ---
History Of Present Illness <Luzmaria Walls - Last Filed: 02/07/18 13:25> <Rhys Lopez - Last Filed: 02/07/18 14:50> 53 y/o male presents to the ER requesting detox from ETOH. Patient denies having suicidal ideation, homicidal ideation, and other drug use. Of note, patient has history of heroin abuse. (Rhys Lopez) <Luzmaria Walls - Last Filed: 02/07/18 13:25> History Per: Patient History/Exam Limitations: no limitations <Rhys Lopez - Last Filed: 02/07/18 14:50> Time Seen by Provider: 02/07/18 11:15 Chief Complaint (Nursing): Substance Abuse Past Medical History Reviewed: Historical Data, Nursing Documentation, Vital Signs - Medical History PMH: HTN, Pneumonia Denies: Anxiety, Bipolar Disorder, Depression, Diabetes, Hepatitis, HIV, Paranoia, Post Traumatic Stress Disorder, Chronic Kidney Disease, Schizophrenia , Seizures, Sexually Transmitted Disease Surgical History: Denies: Appendectomy Family History: States: No Known Family Hx - Social History Hx Tobacco Use: No Hx Alcohol Use: Yes Hx Substance Use: Yes - Immunization History Hx Tetanus Toxoid Vaccination: No Hx Influenza Vaccination: Yes (2018) Hx Pneumococcal Vaccination: No <Rhys Lopez - Last Filed: 02/07/18 14:50> Vital Signs: Last Vital Signs Temp 98.7 F 02/07/18 13:44 Pulse 85 02/07/18 14:12 Resp 16 02/07/18 14:12 BP 122/91 H 02/07/18 14:12 Pulse Ox 92 L 02/07/18 14:12 - [facility] Procedures DETOXIFICATION SERVICES FOR SUBSTANCE ABUSE TREATMENT (08/12/17) GROUP OLEO HASHER AND RENDERER FOR SUBSTANCE ABUSE TREATMENT, PSYCHOEDUCATION (08/12/17) GROUP OLEO HASHER AND RENDERER FOR SUBSTANCE ABUSE, COGNITIVE BEHAVIORAL (08/12/17) INDIV PSYCHOTHERAPY FOR SUBSTANCE ABUSE TREATMENT, SUPPORT (08/12/17) INDIV PSYCHOTHERAPY FOR SUBSTANCE ABUSE, COGNITIV BEHAVIORAL (08/12/17) INDIV PSYCHOTHERAPY FOR SUBSTANCE ABUSE, PSYCHOEDUCATION (08/12/17) Review Of Systems Except As Marked, All Systems Reviewed And Found Negative. Constitutional: Negative for: Fever, Chills <Rhys Lopez - Last Filed: 02/07/18 14:50> Physical Exam - Physical Exam Appears: No Acute Distress Skin: Normal Color, Warm, Dry Head: Atraumatic, Normacephalic Eye(s): bilateral: Normal Inspection Nose: Normal Oral Mucosa: Moist Neck: Supple Chest: Symmetrical Cardiovascular: Rhythm Regular Respiratory: Normal Breath Sounds, No Rales, No Rhonchi, No Wheezing Gastrointestinal/Abdominal: Normal Exam, Soft, No Tenderness, No Guarding, No Rebound Neurological/Psych: Oriented x3, Normal Speech <Rhys Lopez - Last Filed: 02/07/18 14:50> ED Course And Treatment - Laboratory Results Result Diagrams: 02/07/18 11:47 02/07/18 11:47 <Luzmaria Walls - Last Filed: 02/07/18 13:25> - Laboratory Results Result Diagrams: 02/07/18 11:47 02/07/18 11:47 O2 Sat by Pulse Oximetry: 97 (RA) Pulse Ox Interpretation: Normal <Rhys Lopez - Last Filed: 02/07/18 14:50> Medical Decision Making <Luzmaria Walls - Last Filed: 02/07/18 13:25> <Rhys Lopez M - Last Filed: 02/07/18 14:50> Medical Decision Making: Assessment: ETOH Abuse Plan: --Labs --UA --Librium PO --Vitamin B1 IM Updates: ekg - nsr at rate of 74 bpm with lad, nonspecific st and twave changes Case discussed with . Patient will be admitted under the service of . and Dr. Perez will be on consult. (Rhys Lopez) Disposition <Luzmaria Walls - Last Filed: 02/07/18 13:25> Discussed With : Jenifer Doty Counseled Patient/Family Regarding: Studies Performed, Diagnosis - Disposition Disposition Time: 13:03 <Rhys Lopez - Last Filed: 02/07/18 14:50> - Disposition Disposition: HOSPITALIZED Condition: STABLE - Clinical Impression Clinical Impression: Pancytopenia, Alcohol withdrawal, Alcohol abuse <Luzmaria Walls - Last Filed: 02/07/18 13:25> - Scribe Statement The provider has reviewed the documentation as recorded by the Scribe <Rhys Lopez - Last Filed: 02/07/18 14:50> - Scribe Statement Sae Rahman (Rhys Lopez) Provider Attestation: All medical record entries made by the Scribe were at my direction and personally dictated by me. I have reviewed the chart and agree that the record accurately reflects my personal performance of the history, physical exam, medical decision making, and the department course for this patient. I have also personally directed, reviewed, and agree with the discharge instructions and disposition. (Rhys Lopez) Decision To Admit <Luzmaria Walls - Last Filed: 02/07/18 13:25> - Pt Status Changed To: Hospital Disposition Of: Inpatient - Admit Certification Admit to Inpatient:: After my assessment, the patient will require hospitalization for at least two midnights. This is because of the severity of symptoms shown, intensity of services needed, and/or the medical risk in this patient being treated as an outpatient. - InPatient: Physician Admission Certification: I certify that this patient requires 2 or more midnights of care for the following reason:: patient with alcohol abuse, pancytopenia, plateletes of 16 - . Bed Request Type: Telemetry Admitting Physician: Jenifer Doty <Rhys Lopez - Last Filed: 02/07/18 14:50> - . Patient Diagnosis: Pancytopenia, Alcohol withdrawal, Alcohol abuse
[2018-02-07] MEDS ORDERED: Thiamine 100 mg/ml Inj IV ONE (12:20)
[2018-02-07 12:32] LABS: BARBITURATES, UR NEGATIVE (NEGATIVE); BENZODIAZEPINES, UR NEGATIVE (NEGATIVE); OPIATES, UR NEGATIVE (NEGATIVE); PHENCYCLIDINE, UR NEGATIVE (NEGATIVE)
[2018-02-07] MEDS ORDERED: Thiamine 100 mg/ml Inj IM ONE (13:33)
[2018-02-07] MEDS ORDERED: Thiamine 100 mg/ml Inj ONE (15:58)
--- NOTE | 2018-02-07 16:00 | CP.PCM.PN ---
Subjective - Date & Time of Evaluation Date of Evaluation: 02/07/18 Time of Evaluation: 15:20 - Subjective Subjective: H&P dictated #[id number] Objective - Vital Signs/Intake and Output Vital Signs (last 24 hours): Temp Pulse Resp BP Pulse Ox 97.9 F 88 11 L 130/88 97 02/07/18 15:55 02/07/18 15:55 02/07/18 15:55 02/07/18 15:55 02/07/18 15:55 - Medications Medications: Current Medications Clonidine HCl (Catapres) 0.1 mg PO Q4H PRN PRN Reason: Symptoms of alcohol withdrawl Folic Acid (Folic Acid) 1 mg PO DAILY GERALD Lorazepam (Ativan) 2 mg PO .TAPER GERALD PRN Reason: Taper Stop: 02/12/18 17:59 Lorazepam (Ativan) 1 mg IVP Q4H PRN PRN Reason: Symptoms of alcohol withdrawl Multivitamins (Hexavitamin) 1 tab PO DAILY GERALD Thiamine HCl (Vitamin B1 Tab) 100 mg PO DAILY GERALD Trazodone HCl (Desyrel) 50 mg PO HS PRN PRN Reason: Insomnia - Labs Labs: 02/07/18 11:47 02/07/18 11:47
[2018-02-07] MEDS: Sodium Chloride 0.45% 1,000 ML IV SCH (16:56)
[2018-02-07 20:28] LABS: AMYLASE 149 U/L (30-110); LIPASE 387 U/L (23-300)
[2018-02-07 20:34] LABS: IRON 59 ug/dL (49-181)
[2018-02-07 20:43] LABS: % IRON SATURATION 16 (20-55); TOTAL IRON BINDING CAPACITY 379 ug/dL (250-450)
[2018-02-07 21:10] LABS: HEPATITIS B SURFACE AG Negative (NEGATIVE)
[2018-02-07 21:13] LABS: FERRITIN 37.6 ng/mL
[2018-02-07 21:16] LABS: HEPATITIS A IGM NEGATIVE (NEGATIVE); HEPATITIS B CORE AB NEGATIVE (NEGATIVE)
[2018-02-07 21:46] LABS: HEPATITIS C ANTIBODY REACTIVE (NEGATIVE)
[2018-02-07 22:16] LABS: FOLATE 3.2 ng/mL
[2018-02-08] MEDS: Sodium Chloride 0.45% 1,000 ML IV SCH ×2 (02:43→12:37)
--- NOTE | 2018-02-08 03:43 | HP ---
CHIEF COMPLAINT: Requesting for detox. HISTORY OF PRESENT ILLNESS: Mr. Garcia is a 53-year-old male with past medical history of hypertension, came into the emergency room, requesting for detox. In the ED, the patient was found to be with ETOH intoxication with multiple electrolyte abnormalities, and the patient was not clear medically for detox admission, and the patient is being admitted to medical floor. When I examined the patient, he claims that he has been drinking everyday, two to three pints of vodka for the past four years, last drink was yesterday. He drank about one pint yesterday. He started about four years ago when he was going through his divorce. Then, he came into the emergency room requesting for detox. He denies any headache, or dizziness. Denies any chest pain, shortness of breath, or wheezing. Denies any nausea, vomiting, abdominal pain, diarrhea, or constipation. Denies any urinary complaints. Denies any leg pains or leg cramps. Complaining of tremors of the upper extremities. PAST MEDICAL HISTORY: Hypertension, ETOH abuse. PAST SURGICAL HISTORY: Underwent right hernia repair and traumatic injury to the left side of the lung, status post surgery and surgical scar at the left infraaxillary region about four years ago. FAMILY HISTORY: Diabetes mellitus in both mother and father. PERSONAL HISTORY: He is single, lives alone, having no children. 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 ALLERGIES: NO KNOWN DRUG ALLERGIES. SOCIAL HISTORY: Denies smoking, drinks alcohol two to three pints everyday, uses heroin. HOME MEDICATIONS: Include labetalol 100 mg p.o. b.i.d. and thiamine 100 mg p.o. daily. REVIEW OF SYSTEMS: As described in history of present illness. All other systems reviewed and were found to be negative. PHYSICAL EXAMINATION: GENERAL: Middle-aged male, lying in bed, in no acute distress. VITAL SIGNS: Blood pressure 142/89, pulse 77, respirations 20, temperature 97.9 degree Fahrenheit, O2 sat is 96% on room air. HEENT: Pupils equal round, reacting to light and accommodation. Extraocular muscles intact. No icterus. Positive pallor. No oral thrush. No pharyngeal congestion. No nasal congestion. NECK: Supple. No JVD. LUNGS: Bilateral vesicular breath sounds. No wheezing. No rhonchi. CVS: S1, S2 present and regular. ABDOMEN: Soft. Nontender. Bowel sounds present. No guarding. No rigidity. No rebound tenderness noted. 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 EXTREMITIES: Tremors of the upper extremities noted. Extremities, no edema. Palpable peripheral pulses. LABORATORY DATA: Labs done from the emergency room: WBC 1.9, hemoglobin 8, hematocrit 25.2, platelets 16. Sodium 147, potassium 4.1, chloride 109, bicarb 23, BUN 16, creatinine 0.6, glucose 104, calcium 8, phosphorus 3.6, magnesium 1.6, total bilirubin 3.7, AST 449, ALT 90, alkaline phosphatase 97, total protein 7.3, albumin 3.6. UA, specific gravity 1.018, pH 6, protein 3+, glucose normal, ketones negative, blood 2+, nitrite negative, bilirubin 1+, leukocyte esterase negative, rbc 13. Urine drug screen positive for methadone. Alcohol is 416. He has persistent low WBC count in 04/2017. White count was 4.6, and in 07/2017, it was 3.1. Hemoglobin was 13.1, which decreased to 8 now. Platelets were always low, lowest in 04/2017 of 63; in 07/2017, 44. He has persistent 3+ proteinuria in the urine. Chest x-ray was not done. EKG consistent with normal sinus rhythm at 74 beats per minute, T-inversion in V4 to V6. ASSESSMENT: A middle-aged male with history of hypertension, came into the emergency department, requesting for detox. In the emergency department, the patient was found to be with alcohol intoxication and multiple electrolyte abnormalities and pancytopenia, and the patient is being admitted for further management. 1. Ethyl alcohol intoxication. 2. History of ethyl alcohol abuse. 3. History of drug abuse. 4. Acute alcoholic hepatitis. 5. Pancytopenia, probably secondary to ethyl alcohol abuse and bone marrow suppression from ethyl alcohol abuse. 6. Proteinuria. PLAN: The patient is being admitted to telemetry. We will do neurological checks, watch for DTs and withdrawal. The patient is started on Ativan tapering doses, but gave Ativan as needed for breakthrough withdrawal, gave thiamine, multivitamin, and folic acid. We will give the normal saline at 100 mL an hour. We will check iron studies, stool for occult blood, ultrasound of the abdomen. We will get lipase, amylase level and chest x-ray level. We will obtain hematology evaluation with Dr. Perez. I spoke to Dr. Perez who recommended one unit of platelet transfusion which will be done later today as they were not available in the hospital. We will monitor the patient closely for signs of bleeding. We will obtain psychiatric evaluation with Dr. King. We will check echocardiogram to evaluate his LV function. We will obtain community mental health social worker consult. We will add further recommendation as his clinical course progresses. Jenifer Doty MD
[2018-02-08 04:46] LABS: LDL CHOLESTEROL 115 mg/dL (0-129)
[2018-02-08 05:35] LABS: ALB/GLOB RATIO 0.9 (1.0-2.1); ALBUMIN 3.1 g/dL (3.5-5.0); ALT/SGPT 77 U/L (21-72); AST/SGOT 357 U/L (17-59); BLOOD UREA NITROGEN 19 mg/dL (9-20); GFR NON-AFRICAN AMERICAN > 60; HDL CHOLESTEROL 44 mg/dL (30-70)
[2018-02-08 06:52] LABS: MEAN CORPUSCULAR HEMOGLOBIN 30.6 pg (27.0-31.0); MEAN CORPUSCULAR HGB CONC 32.3 g/dL (33.0-37.0); MEAN PLATELET VOLUME 8.6 fL (7.2-11.7); RBC 2.08 Mil/uL (4.40-5.90); RED CELL DISTRIBUTION WIDTH 20.4 % (11.5-14.5)
[2018-02-08 07:06] LABS: HEMOGLOBIN 6.4 g/dL (12.0-18.0); WHITE BLOOD COUNT 1.3 K/uL (4.8-10.8)
--- NOTE | 2018-02-08 08:16 | RAD ---
Date of service: 02/07/2018 HISTORY: etoh abuse COMPARISON: Portable chest 08/13/2017. FINDINGS: LUNGS: No active pulmonary disease. PLEURA: No significant pleural effusion identified, no pneumothorax apparent. CARDIOVASCULAR: Normal. OSSEOUS STRUCTURES: No significant abnormalities. VISUALIZED UPPER ABDOMEN: Normal. OTHER FINDINGS: None. IMPRESSION: No interval acute cardiopulmonary disease appreciated.
--- NOTE | 2018-02-08 10:02 | CP.PCM.PN ---
Subjective - Date & Time of Evaluation Date of Evaluation: 02/08/18 Time of Evaluation: 10:02 - Subjective Subjective: Progress note dictated #[id number] Objective - Vital Signs/Intake and Output Vital Signs (last 24 hours): Temp Pulse Resp BP Pulse Ox 99.7 F H 86 20 131/73 98 02/08/18 07:00 02/08/18 07:00 02/08/18 07:00 02/08/18 07:00 02/08/18 07:00 Intake and Output: 02/08/18 02/08/18 06:59 18:59 Intake Total 1238 Balance 1238 - Medications Medications: Current Medications Clonidine HCl (Catapres) 0.1 mg PO Q4H PRN PRN Reason: Symptoms of alcohol withdrawl Last Admin: 02/08/18 03:03 Dose: 0.1 mg Folic Acid (Folic Acid) 1 mg PO DAILY [facility] Sodium Chloride (Sodium Chloride 0.45%) 1,000 mls @ 100 mls/hr IV .Q10H GERALD Last Admin: 02/08/18 02:43 Dose: Not Given Magnesium Sulfate/Dextrose (Magnesium Sulfate 1 Gm/100 Ml D5w) 1 gm in 100 mls @ 300 mls/hr IVPB Q30M GERALD Stop: 02/08/18 10:49 Potassium Phosphate 15 mmole/ (Sodium Chloride) 255 mls @ 42.5 mls/hr IVPB ONCE ONE Stop: 02/08/18 15:58 Lorazepam (Ativan) 2 mg PO Q6H GERALD PRN Reason: Taper Stop: 02/12/18 17:59 Last Admin: 02/08/18 06:47 Dose: 2 mg Lorazepam (Ativan) 1 mg IVP Q4H PRN PRN Reason: Symptoms of alcohol withdrawl Last Admin: 02/08/18 01:01 Dose: 1 mg Multivitamins (Hexavitamin) 1 tab PO DAILY GERALD Pneumococcal Polyvalent Vaccine (Pneumovax 23 Vaccine) 0.5 ml IM .ONCE ONE Stop: 02/09/18 10:01 Thiamine HCl (Vitamin B1 Tab) 100 mg PO DAILY GERALD Trazodone HCl (Desyrel) 50 mg PO HS PRN PRN Reason: Insomnia Last Admin: 02/08/18 01:01 Dose: 50 mg - Labs Labs: 02/08/18 06:17 02/08/18 04:19
[2018-02-08] MEDS: Magnesium Sulfate 1 gm in D5W 1 GM/100 ML BAG IVPB SCH (10:42)
[2018-02-08] MEDS: Multiple Vitamins Tab PO SCH (10:43)
--- NOTE | 2018-02-08 10:57 | US ---
Pelvis ultrasound COMPARISON: None available FINDINGS: Prevoid urinary bladder could not be assessed by sonogram as the patient voided prior to examination. According to the clinical partner, patient voided 400 cc prior to examination. Postvoid urinary bladder measures approximately 284.0 cc. Impression: Prevoid urinary bladder could not be assessed by sonogram as the patient voided prior to examination. According to the clinical partner, patient voided 400 cc prior to examination. Postvoid urinary bladder measures approximately 284.0 cc.
[2018-02-08] MEDS ORDERED: Potassium Phosphate 15 MMOLE in Sodium Chloride 0.9% 250 ML IVPB ONE (11:00)
--- NOTE | 2018-02-08 11:02 | US ---
HISTORY: abnormal lft's COMPARISON: None available. TECHNIQUE: Sonographic evaluation of the abdomen. FINDINGS: LIVER: Measures 15.9 cm in sagittal dimension. Echogenic liver may be seen in setting of hepatic parenchymal disease or fatty infiltration. No focal hepatic mass identified. The main portal vein appears patent with normal directional flow. No intrahepatic bile duct dilatation. GALLBLADDER: No gallstones. No gallbladder wall thickening. Negative sonographic Cui's sign as assessed by the molder wax ball. COMMON BILE DUCT: Measures 4 mm. PANCREAS: Not well visualized. RIGHT KIDNEY: Measures 11.2 x 5.5 x 5.9cm. No obstructing calculus or hydronephrosis identified. LEFT KIDNEY: Measures 13.5 x 6.6 x 5.5cm. No obstructing calculus or hydronephrosis identified. SPLEEN: Measures approximately measures approximately 15.8 cm. AORTA: Limited views appear unremarkable. IVC: Limited views appear unremarkable. OTHER FINDINGS: None. IMPRESSION: Echogenic liver may be seen in setting of hepatic parenchymal disease or fatty infiltration. Splenomegaly.
[2018-02-08 11:25] LABS: LYMPH # 0.3 K/uL (1.0-4.3); MONO # 0.1 K/uL (0.0-0.8); NEUT # 0.9 K/uL (1.8-7.0)
[2018-02-08 11:38] LABS: BASO % 0.6 % (0.0-2.0); HEMOGLOBIN 6.8 g/dL (12.0-18.0); LYMPH # 0.6 K/uL (1.0-4.3); LYMPH % 36.7 % (20.0-40.0); MEAN CELL VOLUME 95.8 fL (80.0-94.0); MEAN CORPUSCULAR HEMOGLOBIN 30.4 pg (27.0-31.0); MEAN CORPUSCULAR HGB CONC 31.8 g/dL (33.0-37.0); MEAN PLATELET VOLUME 8.4 fL (7.2-11.7); MONO # 0.3 K/uL (0.0-0.8); MONO % 17.9 % (0.0-10.0); NEUT # 0.8 K/uL (1.8-7.0); NEUT % 44.8 % (50.0-75.0); NRBC % 0.6 % (0.0-2.0); RBC 2.25 Mil/uL (4.40-5.90); RED CELL DISTRIBUTION WIDTH 20.9 % (11.5-14.5)
[2018-02-08 11:45] LABS: WHITE BLOOD COUNT 1.7 K/uL (4.8-10.8)
[2018-02-08 12:05] LABS: TROPONIN I 0.025 ng/mL (0.00-0.120)
[2018-02-08 12:29] LABS: FERRITIN 46.7 ng/mL
[2018-02-08 12:58] LABS: FOLATE 3.4 ng/mL
--- NOTE | 2018-02-08 17:10 | PCM.PSYCH ---
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 Pt came into [facility] for EtOH detox yesterday and due to electrolyte abnormality and pancytopenia, he was admitted. Pt began drinking at the age of 6. He drinks on average 1 beer and 1 pint of vodka per day for the past 5 years , last usage being 2 days ago. pt states he began drinking more due to divorce 5 years ago. pts last detox attempt was 2 week ago due to of his sister, pt relapsed 1 week later. pts longest period of abstinence was for 5 years from a previous detox attempt. pt is currently in a methadone program for the past 3-4 months, he says he takes 60mg per day but per his chart it is 70 mg and from [facility] in [place] (his nurse is made aware to call and confirm) . Pt denies hx of seizure. Pt has a hx of depressed mood, trouble sleeping, losing appetite and anxiety in the past 5 years. Denies SI/HI. Pt denies racing thoughts, paranoia, and manic episodes. Pt denies auditory, visual or tactile hallucinations Pt denies smoking. Denies any other substance use ~ Psych Hx: Depression, anxiety but no heide attempts Traumatic Hx: denies Family psych Hx: denies Medical Hx: HTN, cirrhosis of the liver likely end-stage. He has severe pancytopenia and ascites. Legal Hx: denies Current Medications: Active Medications Generic Name Dose Route Start Last Admin Trade Name Freq PRN Reason Stop Dose Admin Acetaminophen 650 mg 02/08/18 13:24 02/08/18 13:45 Tylenol 325mg Tab PO 650 mg Q6 PRN Administration fever Clonidine HCl 0.1 mg 02/07/18 14:30 02/08/18 03:03 Catapres PO 0.1 mg Q4H PRN Administration Symptoms of alcohol withdrawl Folic Acid 1 mg 02/08/18 10:00 02/08/18 10:43 Folic Acid PO 1 mg DAILY GERALD Administration Sodium Chloride 1,000 mls @ 100 mls/hr 02/07/18 16:00 02/08/18 12:37 Sodium Chloride 0.45% IV Not Given .Q10H GERALD Lorazepam 2 mg 02/07/18 18:00 02/08/18 12:36 Ativan PO 02/12/18 17:59 2 mg Q6H GERALD Administration Taper Lorazepam 1 mg 02/07/18 14:20 02/08/18 01:01 Ativan IVP 1 mg Q4H PRN Administration Symptoms of alcohol withdrawl Methadone HCl 5 mg 02/08/18 14:32 Methadone PO Q12H PRN COWS>10 (opiate wdw) Methadone HCl 70 mg 02/09/18 10:00 Methadone PO DAILY GERALD Multivitamins 1 tab 02/08/18 10:00 02/08/18 10:43 Hexavitamin PO 1 tab DAILY GERALD Administration Pneumococcal Polyvalent Vaccine 0.5 ml 02/09/18 10:00 Pneumovax 23 Vaccine IM 02/09/18 10:01 .ONCE ONE Thiamine HCl 100 mg 02/08/18 10:00 02/08/18 10:43 Vitamin B1 Tab PO 100 mg DAILY GERALD Administration Trazodone HCl 50 mg 02/07/18 14:20 02/08/18 01:01 Desyrel PO 50 mg HS PRN Administration Insomnia Past Psychiatric History - Past Psychiatric History Previous Treatment History: Intensive Outpatient Pertinent Medical Hx (Current Medical&Sleep Prob, Allergies): Allergies Allergy/AdvReac Type Severity Reaction Status Date / Time No Known Allergies Allergy Verified 08/12/17 14:51 Labetalol [Trandate] 100 mg PO BID 08/12/17 Thiamine Mononitrate [Optimum Vitamin B-1] 100 mg PO DAILY 08/12/17 Review of Systems - Psychiatric Psychiatric: Abnormal Sleep Pattern, Anhedonia, Anxiety, Behavioral Changes, Confusion, Depression. absent: Auditory Hallucinations, Hallucinations, Homicidal Ideation, Irritability, Paranoia, Suicidal Ideation, Visual Hallucinations Mental Status Examination - Personal Presentation Personal Presentation: Looks stated age - Affect Affect: Flat - Motor Activity Motor Activity: Calm - Reliability in Providing Information Reliability in Providing Information: Good - Speech Speech: Organized - Mood Mood: Depressed - Formal Thought Process Formal Thought Process: No Impairment - Obsessions/Compulsions Obsessions: No Compulsions: No - Cognitive Functions Orientation: Situation Sensorium: Drowsy Attention/Concentration: Easily distracted Estimate of Intelligence: Average Judgement: Intact, as evidence by: Insight regarding need for hospitalization Memory: Recent impaired, as evidence by: Inability to recall events of the day, Remote impaired as evidenced by: Inability to recall sig life events - Risk Risk: Seizure, Withdrawal, Diminished functioning - Strength & Assets Inventory Strength & Assets Inventory: Cooperative DSM 5 DX - DSM 5 DSM 5 Diagnosis: Alcohol use disorder, severe Alcohol withdrawal Opioid use d/o - severe, on maintenance Major Depressive Disorder, single, moderate Alcohol-induced cognitive decline (r/o dementia) - Recommended/Plan of Treatment Treatment Recommendations and Plan of Treatment: Ativan taper for alcohol withdrawal Watch for delirium tremens Continue methadone maintenance tomorrow AM when the dose is confirmed (it couldn 't be confirmed yet by the nurse, who called) As need medications All risks, benefits and alternatives of the meds discussed, and the pt agreed and understood.~ Psychoeducation and support daily Encourage compliance with meds and after care Refer to outpatient program Teach healthy lifestyle methods 34 min
--- NOTE | 2018-02-08 22:50 | CARD ---
APPROVED REPORT Date of service: 02/08/2018 EXAM: Two-dimensional and M-mode echocardiogram with Doppler and color Doppler. Other Information Quality : GoodRhythm : INDICATION LV Function:Systolic RISK FACTORS Hypertension 2D DIMENSIONS IVSd1.1 (0.7-1.1cm)Aortic Root (2D)3.4 (2.0-3.7cm) LVDd5.3 (3.9-5.9cm)PWd0.9 (0.7-1.1cm) LVDs3.8 (2.5-4.0cm)FS (%) 29.2 % LVEF (%)55.6 (>50%) M-Mode DIMENSIONS RVDd2.05 (2.1-3.2cm)Left Atrium (MM)4.58 (2.5-4.0cm) IVSd0.90 (0.7-1.1cm)Aortic Root3.21 (2.2-3.7cm) LVDd4.86 (4.0-5.6cm)Aortic Cusp Exc.2.33 (1.5-2.0cm) PWd0.87 (0.7-1.1cm)FS (%) 34 % LVDs3.19 (2.0-3.8cm)TAPSE30.46 cm LVEF (%)63 (>50%) Mitral Valve MV E Yucawhew97.0cm/sMV A Nmdmwkrl34.0cm/sE/A ratio0.9 TDI E/Lateral E'0.0E/Medial E'0.0 Tricuspid Valve TR Peak Tgzysspc312ds/sTR Peak Gr.[id number] LEFT VENTRICLE The left ventricle is normal size. There is normal left ventricular wall thickness. Left ventricle systolic function is normal. The Ejection Fraction is 55-60%. There is normal LV segmental wall motion. Tissue Doppler imaging reveals abnormal left ventricular diastolic dysfunction. RIGHT VENTRICLE The right ventricle is normal size. There is normal right ventricular wall thickness. The right ventricular systolic function is normal. ATRIA The left atrium size is normal. The right atrium size is normal. The interatrial septum is intact with no evidence for an atrial septal defect. AORTIC VALVE The aortic valve is normal in structure. No aortic regurgitation is present. There is no aortic valvular stenosis. There is no aortic valvular vegetation. MITRAL VALVE The mitral valve is normal in structure. There is no evidence of mitral valve prolapse. There is no mitral valve stenosis. There is no mitral valve regurgitation noted. TRICUSPID VALVE The tricuspid valve is normal in structure. There is trace to mild tricuspid regurgitation. Right ventricular systolic pressure is estimated at less than 30 mmHg. There is no pulmonary hypertension. PULMONIC VALVE The pulmonic valve is not well visualized. There is no pulmonic valvular regurgitation. GREAT VESSELS The aortic root is normal in size. PERICARDIAL EFFUSION There is no significant pericardial effusion. <Conclusion> Left ventricle systolic function is normal. The Ejection Fraction is 55-60%. Diastolic dysfunction. No aortic regurgitation is present. There is no mitral valve regurgitation noted. There is trace to mild tricuspid regurgitation. There is no pulmonary hypertension.
--- NOTE | 2018-02-08 23:34 | CP.PCM.CON ---
History of Present Illness - History of Present Illness History of Present Illness: 53 year old male with a history of alcoholism, presenting with abdominal pain and nausea, found to have pancytopenia. He reports to progressive abdominal pain which prompted him to come to the ER. He denies abnormal bleeding and bruising. Review of his blood work shows severe pancytopenia. He is to receive 1 bag platelets today. Past medical history: Alcoholism Past surgical history: Denies Family history: Denies hematologic and oncologic problems Social history: Denies tobacco, alcohol, and illicit drug use. Allergies: NKA Review of systems: All remaining review of systems including HEENT, cardiovacular, respiratory, gastrointestinal, genitourinary, musculoskeletal, dermatologic, neurologic, and psychiatric are negative unless mentioned in the HPI. Past Patient History - Infectious Disease Hx of Infectious Diseases: None - Past Medical History & Family History Past Medical History?: No - Past Social History Smoking Status: Former Smoker - CARDIAC Hx Cardiac Disorders: Yes Hx Hypertension: Yes - PULMONARY Hx Respiratory Disorders: Yes Hx Pneumonia: Yes - NEUROLOGICAL Hx Neurological Disorder: No Hx Seizures: No - HEENT Hx HEENT Problems: No - RENAL Hx Chronic Kidney Disease: No - ENDOCRINE/METABOLIC Hx Endocrine Disorders: No - HEMATOLOGICAL/ONCOLOGICAL Hx Blood Disorders: No Hx Human Immunodeficiency Virus (HIV): No - INTEGUMENTARY Hx Dermatological Problems: No - MUSCULOSKELETAL/RHEUMATOLOGICAL Hx Musculoskeletal Disorders: No Hx Falls: No (Denied) - GASTROINTESTINAL Hx Gastrointestinal Disorders: No - GENITOURINARY/GYNECOLOGICAL Hx Genitourinary Disorders: No Hx Sexually Transmitted Disorders: No - PSYCHIATRIC Hx Psychophysiologic Disorder: Yes Hx Anxiety: No Hx Bipolar Disorder: No Hx Depression: No Hx Paranoia: No Hx Post Traumatic Stress Disorder: No Hx Schizophrenia: No Hx Substance Use: Yes Other/Comment: ETOH abuse - SURGICAL HISTORY Hx Surgeries: No Hx Appendectomy: No - ANESTHESIA Hx Anesthesia: No Hx Anesthesia Reactions: No Hx Malignant Hyperthermia: No Has any member of the family had a problem w/ anesthesia?: No Meds Allergies/Adverse Reactions: Allergies Allergy/AdvReac Type Severity Reaction Status Date / Time No Known Allergies Allergy Verified 08/12/17 14:51 - Medications Medications: Current Medications Acetaminophen (Tylenol 325mg Tab) 650 mg PO Q6 PRN PRN Reason: fever Last Admin: 02/08/18 13:45 Dose: 650 mg Clonidine HCl (Catapres) 0.1 mg PO Q4H PRN PRN Reason: Symptoms of alcohol withdrawl Last Admin: 02/08/18 03:03 Dose: 0.1 mg Folic Acid (Folic Acid) 1 mg PO DAILY [facility] Last Admin: 02/08/18 10:43 Dose: 1 mg Sodium Chloride (Sodium Chloride 0.45%) 1,000 mls @ 100 mls/hr IV .Q10H [facility] Last Admin: 02/08/18 12:37 Dose: Not Given Lorazepam (Ativan) 2 mg PO Q8H [facility] PRN Reason: Taper Stop: 02/12/18 17:59 Last Admin: 02/08/18 17:25 Dose: 2 mg Lorazepam (Ativan) 1 mg IVP Q4H PRN PRN Reason: Symptoms of alcohol withdrawl Last Admin: 02/08/18 01:01 Dose: 1 mg Methadone HCl (Methadone) 5 mg PO Q12H PRN PRN Reason: COWS>10 (opiate wdw) Methadone HCl (Methadone) 70 mg PO DAILY [facility] Multivitamins (Hexavitamin) 1 tab PO DAILY [facility] Last Admin: 02/08/18 10:43 Dose: 1 tab Pneumococcal Polyvalent Vaccine (Pneumovax 23 Vaccine) 0.5 ml IM .ONCE ONE Stop: 02/09/18 10:01 Thiamine HCl (Vitamin B1 Tab) 100 mg PO DAILY [facility] Last Admin: 02/08/18 10:43 Dose: 100 mg Trazodone HCl (Desyrel) 50 mg PO HS PRN PRN Reason: Insomnia Last Admin: 02/08/18 01:01 Dose: 50 mg Physical Exam - Head Exam Head Exam: ATRAUMATIC - ENT Exam ENT Exam: Mucous Membranes Dry - Respiratory Exam Respiratory Exam: NORMAL BREATHING PATTERN - Cardiovascular Exam Cardiovascular Exam: +S1, +S2 - GI/Abdominal Exam GI & Abdominal Exam: Normal Bowel Sounds Results - Vital Signs Recent Vital Signs: Last Vital Signs Temp 99.2 F 02/08/18 22:41 Pulse 83 02/08/18 22:41 Resp 18 02/08/18 22:41 BP 126/86 02/08/18 22:41 Pulse Ox 95 02/08/18 15:30 - Labs Result Diagrams: 02/08/18 11:18 02/08/18 04:19 Labs: Laboratory Results - last 24 hr 02/07/18 02/08/1818 14:54 04:19 04:23 WBC RBC Hgb Hct MCV MCH MCHC RDW Plt Count MPV Neut % (Auto) Lymph % (Auto) Dickey % (Auto) Eos % (Auto) Baso % (Auto) Neut # (Auto) Lymph # (Auto) Dickey # (Auto) Eos # (Auto) Baso # (Auto) Retic Count Sodium 139 Potassium 3.9 Chloride 104 Carbon Dioxide 23 Anion Gap 16 BUN 19 Creatinine 0.6 L Est GFR ( Amer) > 60 Est GFR (Non-Af Amer) > 60 POC Glucose (mg/dL) Random Glucose 112 H Hemoglobin A1c Calcium 8.0 L Phosphorus 2.0 L Magnesium 1.1 L Ferritin Total Bilirubin 4.5 H AST 357 H D ALT 77 H Alkaline Phosphatase 73 Total Creatine Kinase 134 Troponin I 0.0210 Total Protein 6.3 Albumin 3.1 L Globulin 3.2 Albumin/Globulin Ratio 0.9 L Triglycerides 163 H Cholesterol 178 LDL Cholesterol Direct 115 HDL Cholesterol 44 Vitamin B12 Folate TSH 3rd Generation 1.34 Stool Occult Blood Positive H Blood Type O POSITIVE Antibody Screen Negative 02/08/18 02/08/18 02/08/18 06:17 06:17 06:25 WBC 1.3 L* RBC 2.08 L Hgb 6.4 L* Hct 19.8 L MCV 95.0 H MCH 30.6 MCHC 32.3 L RDW 20.4 H Plt Count 21 L* MPV 8.6 Neut % (Auto) 69.0 Lymph % (Auto) 26.0 Dickey % (Auto) 5.0 Eos % (Auto) 0.0 Baso % (Auto) 0.0 Neut # (Auto) 0.9 L Lymph # (Auto) 0.3 L Dickey # (Auto) 0.1 Eos # (Auto) 0.0 Baso # (Auto) 0.0 Retic Count Sodium Potassium Chloride Carbon Dioxide Anion Gap BUN Creatinine Est GFR ( Amer) Est GFR (Non-Af Amer) POC Glucose (mg/dL) 123 H Random Glucose Hemoglobin A1c 4.5 Calcium Phosphorus Magnesium Ferritin Total Bilirubin AST ALT Alkaline Phosphatase Total Creatine Kinase Troponin I Total Protein Albumin Globulin Albumin/Globulin Ratio Triglycerides Cholesterol LDL Cholesterol Direct HDL Cholesterol Vitamin B12 Folate TSH 3rd Generation Stool Occult Blood Blood Type Antibody Screen 02/08/18 02/08/18 02/08/18 11:18 11:18 13:15 WBC 1.7 L* RBC 2.25 L Hgb 6.8 L Hct 21.5 L MCV 95.8 H MCH 30.4 MCHC 31.8 L RDW 20.9 H Plt Count 20 L* MPV 8.4 Neut % (Auto) 44.8 L Lymph % (Auto) 36.7 Dickey % (Auto) 17.9 H Eos % (Auto) 0.0 Baso % (Auto) 0.6 Neut # (Auto) 0.8 L Lymph # (Auto) 0.6 L Dickey # (Auto) 0.3 Eos # (Auto) 0.0 Baso # (Auto) 0.0 Retic Count 3.6 H Sodium Potassium Chloride Carbon Dioxide Anion Gap BUN Creatinine Est GFR ( Amer) Est GFR (Non-Af Amer) POC Glucose (mg/dL) 146 H Random Glucose Hemoglobin A1c Calcium Phosphorus Magnesium Ferritin 46.7 Total Bilirubin AST ALT Alkaline Phosphatase Total Creatine Kinase Troponin I 0.0250 Total Protein Albumin Globulin Albumin/Globulin Ratio Triglycerides Cholesterol LDL Cholesterol Direct HDL Cholesterol Vitamin B12 758 Folate 3.4 TSH 3rd Generation Stool Occult Blood Blood Type Antibody Screen 02/08/18 02/08/18 17:03 21:00 WBC RBC Hgb Hct MCV MCH MCHC RDW Plt Count MPV Neut % (Auto) Lymph % (Auto) Dickey % (Auto) Eos % (Auto) Baso % (Auto) Neut # (Auto) Lymph # (Auto) Dickey # (Auto) Eos # (Auto) Baso # (Auto) Retic Count Sodium Potassium Chloride Carbon Dioxide Anion Gap BUN Creatinine Est GFR ( Amer) Est GFR (Non-Af Amer) POC Glucose (mg/dL) 109 97 Random Glucose Hemoglobin A1c Calcium Phosphorus Magnesium Ferritin Total Bilirubin AST ALT Alkaline Phosphatase Total Creatine Kinase Troponin I Total Protein Albumin Globulin Albumin/Globulin Ratio Triglycerides Cholesterol LDL Cholesterol Direct HDL Cholesterol Vitamin B12 Folate TSH 3rd Generation Stool Occult Blood Blood Type Antibody Screen Assessment & Plan (1) Pancytopenia Assessment and Plan: secondary to bone marrow suppression from alcohol to receive 1 bag platelets anemia w/u sent Thank you for this interesting consult. Status: Acute
--- NOTE | 2018-02-08 23:38 | CP.PCM.PN ---
Subjective - Date & Time of Evaluation Date of Evaluation: 02/08/18 Time of Evaluation: 19:00 - Subjective Subjective: Feels weak. Objective - Vital Signs/Intake and Output Vital Signs (last 24 hours): Temp Pulse Resp BP Pulse Ox 99.2 F 83 18 126/86 95 02/08/18 22:41 02/08/18 22:41 02/08/18 22:41 02/08/18 22:41 02/08/18 15:30 Intake and Output: 02/08/18 02/09/18 18:59 06:59 Intake Total 1335 325 Balance 1335 325 - Medications Medications: Current Medications Acetaminophen (Tylenol 325mg Tab) 650 mg PO Q6 PRN PRN Reason: fever Last Admin: 02/08/18 13:45 Dose: 650 mg Clonidine HCl (Catapres) 0.1 mg PO Q4H PRN PRN Reason: Symptoms of alcohol withdrawl Last Admin: 02/08/18 03:03 Dose: 0.1 mg Folic Acid (Folic Acid) 1 mg PO DAILY [facility] Last Admin: 02/08/18 10:43 Dose: 1 mg Sodium Chloride (Sodium Chloride 0.45%) 1,000 mls @ 100 mls/hr IV .Q10H [facility] Last Admin: 02/08/18 12:37 Dose: Not Given Lorazepam (Ativan) 2 mg PO Q8H [facility] PRN Reason: Taper Stop: 02/12/18 17:59 Last Admin: 02/08/18 17:25 Dose: 2 mg Lorazepam (Ativan) 1 mg IVP Q4H PRN PRN Reason: Symptoms of alcohol withdrawl Last Admin: 02/08/18 01:01 Dose: 1 mg Methadone HCl (Methadone) 5 mg PO Q12H PRN PRN Reason: COWS>10 (opiate wdw) Methadone HCl (Methadone) 70 mg PO DAILY [facility] Multivitamins (Hexavitamin) 1 tab PO DAILY [facility] Last Admin: 02/08/18 10:43 Dose: 1 tab Pneumococcal Polyvalent Vaccine (Pneumovax 23 Vaccine) 0.5 ml IM .ONCE ONE Stop: 02/09/18 10:01 Thiamine HCl (Vitamin B1 Tab) 100 mg PO DAILY [facility] Last Admin: 02/08/18 10:43 Dose: 100 mg Trazodone HCl (Desyrel) 50 mg PO HS PRN PRN Reason: Insomnia Last Admin: 02/08/18 01:01 Dose: 50 mg - Labs Labs: 02/08/18 11:18 02/08/18 04:19 - Head Exam Head Exam: ATRAUMATIC - Eye Exam Eye Exam: Normal appearance - ENT Exam ENT Exam: Mucous Membranes Dry - Respiratory Exam Respiratory Exam: NORMAL BREATHING PATTERN - Cardiovascular Exam Cardiovascular Exam: +S1, +S2 - GI/Abdominal Exam GI & Abdominal Exam: Normal Bowel Sounds Assessment and Plan (1) Pancytopenia Assessment & Plan: secondary to alcohol causing bone marrow suppression s/p 2U PRBC and 1 bag platelets borderline iron stores; will start IV iron Status: Acute
[2018-02-09 00:02] LABS: INR 1.4; PROTHROMBIN TIME 14.8 SECONDS (9.7-12.2)
[2018-02-09] MEDS ORDERED: Phytonadione 10 mg/ml Inj (Adult) SC STA (00:44)
--- NOTE | 2018-02-09 02:19 | PN ---
DATE: 02/08/2018 SUBJECTIVE: The patient was seen and examined at bedside. The patient was tachycardic and was withdrawing earlier, this morning received extra dose of Ativan. When I examined, the patient is tremulous. Denies any new complaints. Denies any headache or dizziness. Denies any chest pain, shortness of breath, or wheezing. Denies any other complaints. PHYSICAL EXAMINATION: GENERAL: Middle-aged male, lying in bed, in no acute distress. VITAL SIGNS: Blood pressure 139/85, pulse 86, respirations 18, temperature 98.6 degrees Fahrenheit, and O2 sat is 99% on room air. HEENT: Pupils equal, round, reacting to light and accommodation. Extraocular muscles intact. No icterus. No pallor. No oral thrush. No pharyngeal congestion. NECK: Supple. No JVD. LUNGS: Bilateral vesicular breath sounds. No wheezing. No rhonchi. CARDIOVASCULAR SYSTEM: S1 and S2 present, regular. ABDOMEN: Soft. Nontender. Bowel sounds present. No guarding. No rigidity. No rebound tenderness noted. CENTRAL NERVOUS SYSTEM: Alert, awake, and oriented x3. Tremors of the upper extremities noted. EXTREMITIES: No edema. Palpable peripheral pulses. MEDICATIONS: Include Tylenol as needed for fever, clonidine 0.1 mg p.o. every 4 hours p.r.n., folic acid 1 mg p.o. daily, Ativan 1 mg IV push every 4 hours p.r.n., Ativan 2 mg p.o. every 8 hours, methadone 5 mg p.o. every 12 hours p.r.n. for , methadone 70 mg p.o. daily, multivitamin one tablet daily, half normal saline at 100 mL/h, thiamine 100 mg daily, trazodone 50 mg p.o. at bedtime p.r.n. LABORATORY DATA: Labs done from this morning: WBC 1.7, hemoglobin 6.8, hematocrit 21.5, and platelets 20. Sodium 139, potassium 3.9, chloride 104, bicarb 23, BUN 19, creatinine 0.6, glucose 123, hemoglobin A1c 4.5, calcium 8, phosphorus 2, magnesium 1.1. Iron saturation 16. Bilirubin 4.5, AST 357, ALT 77. Triglycerides 163, cholesterol 178, LDL 115. B12 of 758, folate 3.4. TSH 1.34. Occult blood positive. Hepatitis C antibody positive. Abdomen and pelvis ultrasound: Echogenic liver, may be seen in setting of the hepatic parenchymal disease or fatty infiltration, splenomegaly. Chest x-ray is negative. ASSESSMENT AND PLAN: Middle-aged male with past medical history of hypertension, ethyl alcohol abuse. Admitted for ethyl alcohol intoxication, requesting for detoxification, alcohol abuse, drug abuse, acute alcoholic hepatitis, pancytopenia secondary to alcohol induced bone marrow suppression, proteinuria with signs of alcohol withdrawal. Continue with Ativan taper. Give Ativan intravenously for anxiety. The patient was started on methadone, received one unit of platelets yesterday. The patient to be transfused two units of packed red blood cells today as his hemoglobin dropped significantly to 6.4. Replace electrolytes, magnesium, potassium, and phosphorus. Repeat labs in the morning. Slight increase in lipase level, probably secondary to alcohol-induced pancreatitis. We will obtain gastroenterology evaluation for stool occult blood positive and abnormal liver function tests. Hematology consult and psychiatric consult appreciated. We will watch for withdrawal symptoms. Give multivitamin, folate, and thiamine daily. We will repeat labs in the morning. We will add further recommendations as his clinical course progresses. Jenifer Doty MD
[2018-02-09 06:24] LABS: BASO % 1.2 % (0.0-2.0); EOS % 0.4 % (0.0-4.0); HEMOGLOBIN 8.5 g/dL (12.0-18.0); LYMPH # 0.4 K/uL (1.0-4.3); LYMPH % 25.8 % (20.0-40.0); MEAN CELL VOLUME 93.9 fL (80.0-94.0); MEAN CORPUSCULAR HEMOGLOBIN 30.4 pg (27.0-31.0); MEAN CORPUSCULAR HGB CONC 32.4 g/dL (33.0-37.0); MEAN PLATELET VOLUME 9.2 fL (7.2-11.7); MONO # 0.2 K/uL (0.0-0.8); MONO % 14.2 % (0.0-10.0); NEUT # 0.9 K/uL (1.8-7.0); NEUT % 58.4 % (50.0-75.0); NRBC % 0.2 % (0.0-2.0); RBC 2.78 Mil/uL (4.40-5.90); RED CELL DISTRIBUTION WIDTH 20.5 % (11.5-14.5)
[2018-02-09 06:27] LABS: WHITE BLOOD COUNT 1.6 K/uL (4.8-10.8)
[2018-02-09 06:34] LABS: ALB/GLOB RATIO 0.8 (1.0-2.1); ALT/SGPT 67 U/L (21-72); AST/SGOT 276 U/L (17-59); BLOOD UREA NITROGEN 14 mg/dL (9-20); GFR NON-AFRICAN AMERICAN > 60; LIPASE 393 U/L (23-300)
--- NOTE | 2018-02-09 07:02 | CARD ---
APPROVED REPORT Date of service: 02/07/2018 EKG Measurement Heart [id number] <Conclusion> Normal sinus rhythm Left axis deviation ST & T wave abnormality, consider lateral ischemia Abnormal ECG
[2018-02-09] MEDS: Sodium Chloride 0.45% 1,000 ML IV SCH ×2 (08:04→18:21)
--- NOTE | 2018-02-09 09:56 | CP.PCM.PN ---
Subjective - Date & Time of Evaluation Date of Evaluation: 02/09/18 Time of Evaluation: 09:56 - Subjective Subjective: progress note dictated #[id number] Objective - Vital Signs/Intake and Output Vital Signs (last 24 hours): Temp Pulse Resp BP Pulse Ox 99.4 F 92 H 20 137/85 96 02/09/18 00:00 02/09/18 08:53 02/09/18 00:00 02/09/18 00:00 02/09/18 00:00 Intake and Output: 02/09/18 02/09/18 06:59 18:59 Intake Total 325 Balance 325 - Medications Medications: Current Medications Acetaminophen (Tylenol 325mg Tab) 650 mg PO Q6 PRN PRN Reason: fever Last Admin: 02/08/18 13:45 Dose: 650 mg Clonidine HCl (Catapres) 0.1 mg PO Q4H PRN PRN Reason: Symptoms of alcohol withdrawl Last Admin: 02/08/18 03:03 Dose: 0.1 mg Ferric Sodium Gluconate Complex (Ferrlecit) 125 mg IVPB DAILY [facility] Stop: 02/17/18 10:01 Folic Acid (Folic Acid) 1 mg PO DAILY [facility] Last Admin: 02/08/18 10:43 Dose: 1 mg Sodium Chloride (Sodium Chloride 0.45%) 1,000 mls @ 100 mls/hr IV .Q10H [facility] Last Admin: 02/09/18 08:04 Dose: Not Given Lorazepam (Ativan) 2 mg PO Q8H [facility] PRN Reason: Taper Stop: 02/12/18 17:59 Last Admin: 02/09/18 01:17 Dose: 2 mg Lorazepam (Ativan) 1 mg IVP Q4H PRN PRN Reason: Symptoms of alcohol withdrawl Last Admin: 02/08/18 01:01 Dose: 1 mg Methadone HCl (Methadone) 5 mg PO Q12H PRN PRN Reason: COWS>10 (opiate wdw) Methadone HCl (Methadone) 70 mg PO DAILY [facility] Multivitamins (Hexavitamin) 1 tab PO DAILY [facility] Last Admin: 02/08/18 10:43 Dose: 1 tab Pneumococcal Polyvalent Vaccine (Pneumovax 23 Vaccine) 0.5 ml IM .ONCE ONE Stop: 02/09/18 10:01 Thiamine HCl (Vitamin B1 Tab) 100 mg PO DAILY [facility] Last Admin: 02/08/18 10:43 Dose: 100 mg Trazodone HCl (Desyrel) 50 mg PO HS PRN PRN Reason: Insomnia Last Admin: 02/08/18 01:01 Dose: 50 mg - Labs Labs: 02/09/18 06:00 02/09/18 06:00 PT 14.8 SECONDS (9.7-12.2) H 02/08/18 23:50 INR 1.4 02/08/18 23:50 APTT 32 SECONDS (21-34) 02/08/18 23:50
[2018-02-09] MEDS ORDERED: Pneumococcal 23-Valent Vaccine IM ONE (10:00)
[2018-02-09] MEDS: Magnesium Sulfate 1 gm in D5W 1 GM/100 ML BAG IVPB SCH ×2 (10:21→11:47)
[2018-02-09] MEDS: Ferric Sodium Gluconat Complex 62.5 mg/5 ml Vial IVPB SCH (10:27)
[2018-02-09] MEDS: Multiple Vitamins Tab PO SCH (10:27)
[2018-02-09] MEDS: Potassium Phosphate 15 MMOLE in Dextrose 5% In Water 250 ML IVPB ONE ×2 (10:35→11:49)
--- NOTE | 2018-02-09 12:04 | PCM.PYCHPN ---
Psychiatric Progress Note - Psychiatric Progress Note Patient seen today, length of contact: 16 min Patient Chief Complaint: "OK" Problems Identified/Issues Discussed: The pt is seen, chart reviewed and case discussed His methadone dose is confirmed by the wriyter and the nurse by calling [facility]'s [id number] line (they were closed today for some reason) His nurse at [facility] reported that he took 60 mg the day before yesterday. Medication is reinstated He is still somewhat confused No breakthru wdw sxs Support given Medication Change: Yes (detox changes daily) Medical Record Reviewed: Yes Mental Status Examination - Cognitive Function Orientation: Situation Memory: Impaired Attention: Poor Concentration: Poor Association: Loose Fund of Knowledge: Poor - Mood Mood: Depressed - Affect Affect: Flat - Speech Speech: Slurred - Formal Thought Process Formal Thought Process: No Impairment - Suicidal Ideation Suicidal Ideation: No - Homicidal Ideation Homicidal Ideation: No Goal/Treatment Plan - Goal/Treatment Plan Progress Toward Problem(s) and Goals/Treatment Plan: Ativan taper for alcohol withdrawal Watch for delirium tremens Continue methadone maintenance at 60 mg As need medications All risks, benefits and alternatives of the meds discussed, and the pt agreed and understood.~ Psychoeducation and support daily Encourage compliance with meds and after care Refer to outpatient program Teach healthy lifestyle methods
[2018-02-09] MEDS: Methadone 40 mg Tab PO SCH (12:48)
--- NOTE | 2018-02-09 21:17 | PN ---
DATE: 02/09/2018 LOCATION: 558, bed A SUBJECTIVE: This is a 53 years old male was scheduled initially for upper endoscopy today; however, after being in the endoscopy room, the patient was found to have abnormal lab results including severe thrombocytopenia with pancytopenia white blood cells 1.6, hemoglobin 8.5, hematocrit 26.1. PT of 13.8, which could be secondary to liver cirrhosis due to alcoholism. Blood glucose level 122, calcium 8, phosphorus 2, magnesium 1.5, total protein 6.3 with AST 276, but normal ALT with ammonia level 73 with elevated CEA and CA-19-9 with lipase 393. Pelvic ultrasound was done yesterday, official report is seen. PHYSICAL EXAMINATION: GENERAL: A 53 years old male. VITAL SIGNS: Afebrile with pulse of 94, respiratory rate 20 to 22, blood pressure 132/72. HEENT: Shows pale, dry oral mucous membrane, bilateral icteric sclerae. LUNGS: Few scattered crepitation. Breathing sounds are present bilaterally. EXTREMITIES: Without significant clubbing, cyanosis or edema. NEUROLOGIC: No reported neurological deficits, sensory or motor. No reported new focal deficits. It has to be mentioned that the patient has slight upper extremity fine tremors bilaterally. IMPRESSION: 1. Alcoholism. 2. Alcoholic liver disease. 3. Pancytopenia that could be secondary patient due to alcoholism. 4. Known history of hypertension, recurrent pneumonia. 5. Electrolyte imbalance secondary to above. 6. Acute alcoholic pancreatitis. 7. Abnormal cancer markers of CEA and CA 19-9 raising the possibility of gastrointestinal occult malignancy. SUGGESTION: 1. Agree with your plan. 2. Correct any underlying electrolyte imbalance. 3. The patient will need hematology and oncology followup to correct severe pancytopenia and platelet transfusion is required for any aggressive GI workup. 4. Further recommendation to follow. Kimberley Clark MD
--- NOTE | 2018-02-10 02:44 | PN ---
DATE: 02/09/2018 SUBJECTIVE: The patient was seen and examined at bedside. The patient offers no new complaints. Events from last night noted. PHYSICAL EXAMINATION: GENERAL: Middle aged male, lying in bed, in no acute distress. VITAL SIGNS: Blood pressure 128/75, pulse 98, respirations 20, temperature 98.6 degrees Fahrenheit, O2 saturation is 98% on room air. HEENT: Pupils equal, round, and reacting to light and accommodation. Extraocular muscles intact. No icterus. Positive pallor. No oral thrush. Dry mucous membranes. NECK: Supple. No JVD. LUNGS: Bilateral vesicular breath sounds. No wheezing. No rhonchi. CVS: S1, S2 present, regular. ABDOMEN: Soft, nontender. Bowel sounds present. No guarding. No rigidity. No rebound tenderness noted. [employer]: Alert, awake, oriented x3. Tremors of the upper extremity is noted. EXTREMITIES: No edema. Palpable peripheral pulses. MEDICATIONS: Include Tylenol as needed, Catapres 0.1 mg p.o. every 4 hours as needed, Ferrlecit 125 mg IV daily, folic acid 1 mg daily, Ativan 1 mg IV push every 4 hours p.r.n., Ativan 2 mg p.o. every 8 hours, , methadone 40 mg p.o. daily, multivitamin one tab daily, sodium chloride half normal saline at 100 mL an hour, thiamine 100 mg daily, trazodone 50 mg p.o. at bedtime. LABORATORY DATA: Labs from this morning, WBC 1.6, hemoglobin 8.5, hematocrit 26.1, platelets 16,000. PT 14.8, INR 1.4, PTT 32. Sodium 138, potassium 3.8, chloride 104, bicarb 24, BUN 14, creatinine 0.5, glucose 102, calcium 8, phosphorus 2, magnesium 1.5. Total bilirubin 6.3. AST 276, ALT 67, alkaline phosphatase 72. Ammonia is 73. CPK is 73. Albumin 3. Lipase is 393, alpha fetoprotein 3.9, CEA 5.8, CA 19-9 of 69.9. ASSESSMENT AND PLAN: Middle aged male with history of ethanol abuse, hypertension, admitted for ethanol intoxication, pancytopenia, electrolyte imbalance, abnormal liver function test consistent with acute alcoholic hepatitis, history of drug abuse. The patient is on Ativan tapering doses. We will continue with as needed Ativan for breakthrough anxiety or alcohol withdrawal, watch for delirium tremens. Continue with thiamine, multivitamin, folic acid supplement, potassium, and magnesium. The patient is for one unit of platelet transfusion. We will monitor the patient closely for any signs of bleeding. The patient is for possible esophagogastroduodenoscopy in a.m. Intravenous iron is being added by Hematology. We will continue with deep venous thrombosis and gastrointestinal prophylaxes. Jenifer Doty MD
[2018-02-10 08:51] LABS: BASO % 0.9 % (0.0-2.0); EOS % 1.2 % (0.0-4.0); HEMOGLOBIN 8.5 g/dL (12.0-18.0); LYMPH # 0.7 K/uL (1.0-4.3); LYMPH % 27.3 % (20.0-40.0); MEAN CELL VOLUME 94.2 fL (80.0-94.0); MEAN CORPUSCULAR HEMOGLOBIN 30.9 pg (27.0-31.0); MEAN CORPUSCULAR HGB CONC 32.8 g/dL (33.0-37.0); MONO # 0.3 K/uL (0.0-0.8); MONO % 11.6 % (0.0-10.0); NEUT # 1.5 K/uL (1.8-7.0); NRBC % 0.3 % (0.0-2.0); RBC 2.75 Mil/uL (4.40-5.90); RED CELL DISTRIBUTION WIDTH 20.8 % (11.5-14.5)
[2018-02-10 08:58] LABS: WHITE BLOOD COUNT 2.5 K/uL (4.8-10.8)
[2018-02-10 09:15] LABS: ALB/GLOB RATIO 0.8 (1.0-2.1); ALT/SGPT 54 U/L (21-72); AST/SGOT 192 U/L (17-59); BLOOD UREA NITROGEN 15 mg/dL (9-20); CALCIUM 8.3 mg/dl (8.6-10.4); GFR NON-AFRICAN AMERICAN > 60
--- NOTE | 2018-02-10 09:22 | CP.PCM.PN ---
Subjective - Date & Time of Evaluation Date of Evaluation: 02/09/18 Time of Evaluation: 17:00 - Subjective Subjective: Feeling better. Objective - Vital Signs/Intake and Output Vital Signs (last 24 hours): Temp Pulse Resp BP Pulse Ox 98.8 F 105 H 20 99/68 L 98 02/10/18 08:00 02/10/18 08:00 02/10/18 08:00 02/10/18 08:00 02/10/18 08:00 Intake and Output: 02/10/18 02/10/18 06:59 18:59 Intake Total 800 Balance 800 - Medications Medications: Current Medications Acetaminophen (Tylenol 325mg Tab) 650 mg PO Q6 PRN PRN Reason: fever Last Admin: 02/08/18 13:45 Dose: 650 mg Clonidine HCl (Catapres) 0.1 mg PO Q4H PRN PRN Reason: Symptoms of alcohol withdrawl Last Admin: 02/08/18 03:03 Dose: 0.1 mg Ferric Sodium Gluconate Complex (Ferrlecit) 125 mg IVPB DAILY [facility] Stop: 02/17/18 10:01 Last Admin: 02/09/18 10:27 Dose: Not Given Folic Acid (Folic Acid) 1 mg PO DAILY [facility] Last Admin: 02/09/18 10:25 Dose: Not Given Sodium Chloride (Sodium Chloride 0.45%) 1,000 mls @ 100 mls/hr IV .Q10H [facility] Last Admin: 02/09/18 18:21 Dose: 100 mls/hr Lorazepam (Ativan) 2 mg PO Q8H [facility] PRN Reason: Taper Stop: 02/12/18 17:59 Last Admin: 02/10/18 02:05 Dose: 2 mg Lorazepam (Ativan) 1 mg IVP Q4H PRN PRN Reason: Symptoms of alcohol withdrawl Last Admin: 02/08/18 01:01 Dose: 1 mg Methadone HCl (Methadone) 20 mg PO DAILY [facility] Last Admin: 02/09/18 12:48 Dose: 20 mg Methadone HCl (Methadose) 40 mg PO DAILY [facility] Last Admin: 02/09/18 12:48 Dose: 40 mg Multivitamins (Hexavitamin) 1 tab PO DAILY [facility] Last Admin: 02/09/18 10:27 Dose: Not Given Thiamine HCl (Vitamin B1 Tab) 100 mg PO DAILY [facility] Last Admin: 02/09/18 10:25 Dose: Not Given Trazodone HCl (Desyrel) 50 mg PO HS PRN PRN Reason: Insomnia Last Admin: 02/08/18 01:01 Dose: 50 mg - Labs Labs: 02/10/18 08:45 02/10/18 08:45 PT 14.8 SECONDS (9.7-12.2) H 02/08/18 23:50 INR 1.4 02/08/18 23:50 APTT 32 SECONDS (21-34) 02/08/18 23:50 - Head Exam Head Exam: ATRAUMATIC - Eye Exam Eye Exam: Normal appearance - ENT Exam ENT Exam: Mucous Membranes Dry - Respiratory Exam Respiratory Exam: NORMAL BREATHING PATTERN - Cardiovascular Exam Cardiovascular Exam: +S1, +S2 - GI/Abdominal Exam GI & Abdominal Exam: Normal Bowel Sounds Assessment and Plan (1) Pancytopenia Assessment & Plan: secondary to alcohol platelet transfusion today s/p PRBC and plt transfusion alcohol cessation; being seen by psychiatry borderline iron stores on IV iron and GI w/u in progress Status: Acute
[2018-02-10 09:24] LABS: CK-MB 0.42 ng/mL (0.0-3.38)
[2018-02-10] MEDS: Ferric Sodium Gluconat Complex 62.5 mg/5 ml Vial IVPB SCH (09:33)
[2018-02-10] MEDS: Multiple Vitamins Tab PO SCH (09:34)
[2018-02-10] MEDS: Sodium Chloride 0.45% 1,000 ML IV SCH (09:34)
[2018-02-10] MEDS ORDERED: Methadone 40 mg Tab PO SCH (10:00)
--- NOTE | 2018-02-10 10:09 | CP.PCM.PN ---
Subjective - Date & Time of Evaluation Date of Evaluation: 02/10/18 Time of Evaluation: 10:09 - Subjective Subjective: Progress note dictated #[id number] Objective - Vital Signs/Intake and Output Vital Signs (last 24 hours): Temp Pulse Resp BP Pulse Ox 98.8 F 105 H 20 99/68 L 98 02/10/18 08:00 02/10/18 08:00 02/10/18 08:00 02/10/18 08:00 02/10/18 08:00 Intake and Output: 02/10/18 02/10/18 06:59 18:59 Intake Total 800 Balance 800 - Medications Medications: Current Medications Acetaminophen (Tylenol 325mg Tab) 650 mg PO Q6 PRN PRN Reason: fever Last Admin: 02/08/18 13:45 Dose: 650 mg Clonidine HCl (Catapres) 0.1 mg PO Q4H PRN PRN Reason: Symptoms of alcohol withdrawl Last Admin: 02/08/18 03:03 Dose: 0.1 mg Ferric Sodium Gluconate Complex (Ferrlecit) 125 mg IVPB DAILY [facility] Stop: 02/17/18 10:01 Last Admin: 02/10/18 09:33 Dose: Not Given Folic Acid (Folic Acid) 1 mg PO DAILY [facility] Last Admin: 02/10/18 09:34 Dose: Not Given Sodium Chloride (Sodium Chloride 0.45%) 1,000 mls @ 100 mls/hr IV .Q10H [facility] Last Admin: 02/10/18 09:34 Dose: Not Given Lorazepam (Ativan) 2 mg PO Q8H [facility] PRN Reason: Taper Stop: 02/12/18 17:59 Last Admin: 02/10/18 09:33 Dose: Not Given Lorazepam (Ativan) 1 mg IVP Q4H PRN PRN Reason: Symptoms of alcohol withdrawl Last Admin: 02/08/18 01:01 Dose: 1 mg Methadone HCl (Methadone) 20 mg PO DAILY [facility] Last Admin: 02/09/18 12:48 Dose: 20 mg Methadone HCl (Methadose) 40 mg PO DAILY [facility] Last Admin: 02/09/18 12:48 Dose: 40 mg Multivitamins (Hexavitamin) 1 tab PO DAILY [facility] Last Admin: 02/10/18 09:34 Dose: Not Given Thiamine HCl (Vitamin B1 Tab) 100 mg PO DAILY [facility] Last Admin: 02/10/18 09:34 Dose: Not Given Trazodone HCl (Desyrel) 50 mg PO HS PRN PRN Reason: Insomnia Last Admin: 02/08/18 01:01 Dose: 50 mg - Labs Labs: 02/10/18 08:45 02/10/18 08:45 PT 14.8 SECONDS (9.7-12.2) H 02/08/18 23:50 INR 1.4 02/08/18 23:50 APTT 32 SECONDS (21-34) 02/08/18 23:50
[2018-02-10] MEDS: Methadone 40 mg Tab PO SCH (11:17)
--- NOTE | 2018-02-10 12:34 | PCM.PYCHPN ---
Psychiatric Progress Note - Psychiatric Progress Note Patient seen today, length of contact: 15 min Patient Chief Complaint: "Tired' Problems Identified/Issues Discussed: The pt is seen, chart reviewed, case discussed with staff. Support and psychoeducation given No new symptoms reported, improving slowly and needs more time No SEs from medications Still confused and sedated Ammonia level will be checked Likely due to meds + liver failure Medication Change: Yes (detox changes daily) Medical Record Reviewed: Yes Mental Status Examination - Cognitive Function Orientation: Situation Memory: Impaired Attention: Poor Concentration: Poor Association: Loose Fund of Knowledge: Poor - Mood Mood: Depressed - Affect Affect: Flat - Speech Speech: Slurred - Formal Thought Process Formal Thought Process: No Impairment - Suicidal Ideation Suicidal Ideation: No - Homicidal Ideation Homicidal Ideation: No Goal/Treatment Plan - Goal/Treatment Plan Need for Continued Stay: Other (medical) Progress Toward Problem(s) and Goals/Treatment Plan: Ativan taper for alcohol withdrawal Watch for delirium tremens Continue methadone maintenance at 60 mg As need medications All risks, benefits and alternatives of the meds discussed, and the pt agreed and understood.~ Psychoeducation and support daily Encourage compliance with meds and after care Refer to outpatient program Teach healthy lifestyle methods Ammonia level
[2018-02-10 14:25] LABS: CK-MB 0.52 ng/mL (0.0-3.38)
[2018-02-10 21:01] LABS: CK-MB 1.14 ng/mL (0.0-3.38)
--- NOTE | 2018-02-10 22:32 | PN ---
DATE: 02/10/2018 LOCATION: 558, bed A. SUBJECTIVE: This is a 53-year-old male, seen and examined in rounds who reported to have bouts of V-tach before with reported mild chest discomfort. At this point, the previously scheduled EGD was canceled this morning and rescheduled in another day when the patient is more stable clinically. The patient denied any evidence of active GI bleeding today; however, today's lab showed pancytopenia with hemoglobin 8.5, hematocrit 26, white blood cells 2.5 with platelet count 32. Blood glucose level of 99, calcium 8.3 with total bilirubin 7.3 and AST 192 but normal ALT with ammonia level is still elevated to 34, but better than before with albumin of 3. PHYSICAL EXAMINATION: GENERAL: A 53-year-old male. VITAL SIGNS: Afebrile with pulse of 86, respiratory rate 20 to 22, blood pressure of 120/76. HEENT: Showed pale, dry oral mucous membrane. Nonicteric sclerae. LUNGS: Few scattered crepitation. Decreased air entry at bases. HEART: Positive S1 and S2. ABDOMEN: Soft with slight generalized tenderness. No mass or organomegaly. No rebound tenderness or guarding. EXTREMITIES: Without significant clubbing, cyanosis or edema. NEUROLOGIC: No reported new neurological deficits, sensory or motor. IMPRESSION: 1. Known history of alcoholism. 2. Alcoholic liver disease with abnormal liver function tests and . 3. Pancytopenia that could be secondary to above with bone marrow depression. 4. Known history of recurrent pneumonia, hypertension, alcohol-induced acute pancreatitis by history. 5. Abnormal cancer markers of CEA and CA 19-9, to rule out possible occult gastrointestinal malignancy. SUGGESTIONS: 1. Agree with your plan. 2. Correct any underlying electrolyte imbalance. 3. Correct the patient's pancytopenia with platelet transfusion as needed, that to be discussed with oncology/hematology technical assistance consultant. 4. Endoscopic evaluation of the GI tract when the patient is more stable clinically. Further recommendation to follow. Kimberley Clark MD
--- NOTE | 2018-02-11 00:38 | PN ---
DATE: 02/10/2018 SUBJECTIVE: The patient was seen and examined at the bedside. The patient offers no new complaints. Denies any chest pain, shortness of breath or wheezing. Events from this morning noted. Found to have asymptomatic V-tach on monitoring for few seconds. The patient was asymptomatic without any chest pain, shortness of breath or wheezing. PHYSICAL EXAMINATION: GENERAL: Middle aged male lying in bed in no acute distress. VITAL SIGNS: Blood pressure 115/74, pulse 87, respirations 20, temperature 98.2 degrees Fahrenheit, O2 saturation 96% on room air. HEENT: Pupils equal, round and reacting to light and accommodation. Extraocular muscles intact. Positive icterus. Positive pallor. No oral thrush. Dry mucous membranes. NECK: Supple. No JVD. LUNGS: Bilateral vesicular breath sounds. No wheezing. No rhonchi. CVS: S1 and S2 present. Regular. ABDOMEN: Soft and nontender. Bowel sounds present. No guarding. No rigidity. No rebound tenderness noted. SHOEMAKING FINISHER: Alert, awake and oriented x3. Tremors of the upper extremities noted. EXTREMITIES: No edema. Palpable peripheral pulses. MEDICATIONS: Tylenol 650 mg p.o. every 6 hours p.r.n., clonidine 0.1 mg p.o. every 4 hours p.r.n., Ferrlecit 125 mg IV piggyback daily, folic acid 1 mg daily, Ativan 1 mg IV push every 4 hours p.r.n., Ativan 2 mg p.o. every 12 hours, methadone 60 mg daily, multivitamin 1 tab daily, thiamine 100 mg daily, trazodone 50 mg p.o. at bedtime. LABORATORY DATA: Labs from this morning, WBC 2.5, hemoglobin 8.5, hematocrit 26, platelets 32. Sodium 135, potassium 4.1, chloride 102, bicarb 24, BUN 15, creatinine 0.7, glucose 106, calcium 8.3, phosphorus 3.2, magnesium 1.7, total bilirubin 7.3, AST 192, ALT 54, alkaline phosphatase 80, ammonia 34. Cardiac enzymes x3 negative. Total protein 6.6, albumin 3. ASSESSMENT AND PLAN: Middle-aged male with history of hypertension, ethyl alcohol abuse, admitted for ethyl alcohol intoxication, multiple electrolyte imbalance, pancytopenia, stool occult blood positive, alcoholic hepatitis, hepatitis C positive, history of drug abuse on Ativan tapering doses, watch his mental status, watch for detoxification. Continue with folic acid, multivitamin and thiamine. His blood counts are improving after 2 units of PRBC transfusion and 2 units of platelet transfusion. EGD from this morning canceled and will be done possibly on Tuesday by GI. We will supplement electrolytes, status post an episode of short run of ventricular tachycardia. We will do cardiac enzymes. EKG done this morning consistent with normal sinus rhythm at 90 beats per minute, T inversion in V3, V4, V5 and V6. No acute ST-T changes noted. Echocardiogram done on admission shows ejection fraction to be 55 to 60% without any valvular stenosis or regurgitation significantly. We will obtain cardiology evaluation. The patient remains in sinus rhythm. We will follow up with GI regarding the procedure. Continue with iron supplementation. Monitor platelet count closely. nutrition services aide for discharge planning. Jenifer Doty MD
[2018-02-11 08:44] LABS: ALB/GLOB RATIO 0.8 (1.0-2.1); ALT/SGPT 57 U/L (21-72); AST/SGOT 156 U/L (17-59); BLOOD UREA NITROGEN 14 mg/dL (9-20); CALCIUM 8.1 mg/dl (8.6-10.4); GFR NON-AFRICAN AMERICAN > 60
[2018-02-11 08:46] LABS: BASO % 1.1 % (0.0-2.0); EOS % 1.5 % (0.0-4.0); HEMOGLOBIN 8.9 g/dL (12.0-18.0); LYMPH # 0.5 K/uL (1.0-4.3); LYMPH % 22.4 % (20.0-40.0); MEAN CELL VOLUME 94.1 fL (80.0-94.0); MEAN CORPUSCULAR HEMOGLOBIN 30.7 pg (27.0-31.0); MEAN CORPUSCULAR HGB CONC 32.6 g/dL (33.0-37.0); MEAN PLATELET VOLUME 10.7 fL (7.2-11.7); MONO # 0.4 K/uL (0.0-0.8); MONO % 14.4 % (0.0-10.0); NEUT # 1.5 K/uL (1.8-7.0); NEUT % 60.6 % (50.0-75.0); NRBC % 0.3 % (0.0-2.0); RBC 2.89 Mil/uL (4.40-5.90); RED CELL DISTRIBUTION WIDTH 20.5 % (11.5-14.5); WHITE BLOOD COUNT 2.4 K/uL (4.8-10.8)
[2018-02-11] MEDS ORDERED: Ferric Sodium Gluconat Complex 62.5 MG in Sodium Chloride 0.9% 100 ML IVPB SCH (10:00)
[2018-02-11] MEDS: Multiple Vitamins Tab PO SCH (10:08)
[2018-02-11] MEDS: Methadone 40 mg Tab PO SCH (10:08)
[2018-02-11] MEDS: Ferric Sodium Gluconat Complex 125 MG in Sodium Chloride 0.9% 100 ML IVPB SCH (10:21)
--- NOTE | 2018-02-11 10:44 | CP.PCM.PN ---
Subjective - Date & Time of Evaluation Date of Evaluation: 02/11/18 Time of Evaluation: 10:44 - Subjective Subjective: Progress note dictated #[id number] Objective - Vital Signs/Intake and Output Vital Signs (last 24 hours): Temp Pulse Resp BP Pulse Ox 98.5 F 92 H 20 133/88 96 02/11/18 08:00 02/11/18 08:00 02/11/18 08:00 02/11/18 08:00 02/11/18 08:00 Intake and Output: 02/11/18 02/11/18 06:59 18:59 Intake Total 500 Balance 500 - Medications Medications: Current Medications Acetaminophen (Tylenol 325mg Tab) 650 mg PO Q6 PRN PRN Reason: fever Last Admin: 02/08/18 13:45 Dose: 650 mg Clonidine HCl (Catapres) 0.1 mg PO Q4H PRN PRN Reason: Symptoms of alcohol withdrawl Last Admin: 02/08/18 03:03 Dose: 0.1 mg Folic Acid (Folic Acid) 1 mg PO DAILY [facility] Last Admin: 02/11/18 10:08 Dose: 1 mg Ferric Sodium Gluconate Complex 125 mg/ Sodium Chloride 110 mls @ 105 mls/hr IVPB DAILY [facility] Stop: 02/17/18 10:31 Last Admin: 02/11/18 10:21 Dose: 105 mls/hr Lorazepam (Ativan) 2 mg PO Q12H [facility] PRN Reason: Taper Stop: 02/12/18 17:59 Last Admin: 02/11/18 06:13 Dose: 2 mg Lorazepam (Ativan) 1 mg IVP Q4H PRN PRN Reason: Symptoms of alcohol withdrawl Last Admin: 02/10/18 20:00 Dose: 1 mg Methadone HCl (Methadose) 40 mg PO DAILY [facility] Last Admin: 02/11/18 10:08 Dose: 40 mg Methadone HCl (Methadone) 20 mg PO DAILY [facility] Last Admin: 02/11/18 10:22 Dose: 20 mg Multivitamins (Hexavitamin) 1 tab PO DAILY [facility] Last Admin: 02/11/18 10:08 Dose: 1 tab Thiamine HCl (Vitamin B1 Tab) 100 mg PO DAILY [facility] Last Admin: 02/11/18 10:08 Dose: 100 mg Trazodone HCl (Desyrel) 50 mg PO HS PRN PRN Reason: Insomnia Last Admin: 02/08/18 01:01 Dose: 50 mg - Labs Labs: 02/11/18 08:25 02/11/18 08:25 PT 14.8 SECONDS (9.7-12.2) H 02/08/18 23:50 INR 1.4 02/08/18 23:50 APTT 32 SECONDS (21-34) 02/08/18 23:50
--- NOTE | 2018-02-11 11:21 | PN ---
DATE: 02/11/2018 LOCATION: 558, bed A. SUBJECTIVE: This is a 53 years old male seen and examined early in rounds without significant clinical changes. Appears to be somewhat awake, alert but restless without reported active bleeding, offers no new complaints this morning. No reported chest pain, palpitation, chills or fever or significant increase of shortness of breath; however, the patient is somewhat less cooperative. The entire chart is reviewed including, but not limited to the most recent lab and radiology study results, current and the previous medication list, current and the previous medical events. Today's lab showed blood glucose level of 93. Rest of the lab results still pending. The patient reported to have elevated ammonia level recently with low albumin and low creatinine, as well as low hemoglobin and hematocrit with thrombocytopenia of 32, white blood cells 2.5. PHYSICAL EXAMINATION: GENERAL: A 53 years old male. VITAL SIGNS: Afebrile with pulse of 90, respiratory rate 20-22, blood pressure of 140/82. HEENT: Showed pale dry oral mucous membrane. Bilateral icteric sclerae. LUNGS: Few scattered crepitation. Decreased air entry at bases. HEART: Positive S1 and S2. ABDOMEN: Soft with mild generalized tenderness with mild distention. No mass or organomegaly. No rebound tenderness or guarding. EXTREMITIES: Without significant clubbing, cyanosis or edema. No reported new neurological deficits, sensory or motor. IMPRESSION: 1. Alcoholism. 2. Alcoholic liver disease with liver cirrhosis and pancytopenia. 3. Known history of hypertension, alcohol induced acute pancreatitis by history. 4. Electrolyte imbalance secondary to above. 5. Abnormal cancer markers raising the question of possible occult gastrointestinal tract malignancy. SUGGESTIONS: 1. Continue current management. 2. Follow up with hematology/oncology to correct his underlying thrombocytopenia before any aggressive procedures to be done 3. Neomycin p.o. 4. Repeat ammonia level. 5. The patient may need MRCP due to the elevated CA19-9, which could be also secondary to his recurrent pancreatitis. Further recommendation to follow. Kimberley Clark MD
--- NOTE | 2018-02-11 16:32 | PN ---
DATE: 02/11/2018 SUBJECTIVE: The patient was seen and examined at bedside. The patient offers no new complaints. Complaining of feeling the same when he came in. I spoke to the patient via Polish-speaking tooling inspector. PHYSICAL EXAMINATION: GENERAL: Middle-aged male, lying in bed, in no acute distress. VITAL SIGNS: Blood pressure 133/88, pulse 92, respirations 20, temperature 98.5 degrees Fahrenheit, O2 saturations 96% on room air. HEENT: Pupils are equal, round, and reacting to light and accommodation. Extraocular muscles intact. Positive icterus. Positive pallor. No oral thrush. No pharyngeal congestion. NECK: Supple. No JVD. LUNGS: Bilateral vesicular breath sounds. No wheezing. No rhonchi. CARDIOVASCULAR SYSTEM: S1 and S2 present. Regular. ABDOMEN: Soft, nontender. Bowel sounds present. No guarding. No rigidity. No rebound tenderness noted. CENTRAL NERVOUS SYSTEM: Alert, awake, and oriented x2. No focal deficits noted. Tremors of the upper extremity is much better than yesterday. EXTREMITIES: No edema. Palpable peripheral pulses. MEDICATIONS: Include Tylenol 650 p.o. every 6 hours p.r.n., clonidine 0.1 mg p.o. every 4 hours, Ferrlecit 125 mg daily, folic acid 1 mg daily, Ativan 1 mg IV push every 4 hours p.r.n., Ativan 2 mg p.o. every 12 hours, methadone 60 mg daily, multivitamin 1 tablet daily, B1 100 mg p.o. daily, trazodone 50 mg p.o. at bedtime p.r.n. for insomnia. LABORATORY DATA: From today, WBC 2.4, hemoglobin 8.9, hematocrit 27.2, platelets 33. Sodium 134, potassium 4.4, chloride 102, bicarb 23, BUN 14, creatinine 0.6, glucose 99, calcium 8.1, total bilirubin 7.3. AST 156, ALT 57, alkaline phosphatase 88, total protein 6.8, albumin 3. ASSESSMENT AND PLAN: A middle-aged male with history of hypertension, ethanol abuse, admitted for ethanol intoxication, pancytopenia, hepatitis C positive, acute alcoholic hepatitis, electrolyte imbalance, history of drug abuse, elevated tumor markers, status post 2 units of packed red blood cells transfusion and 2 units of platelet transfusion. Hemoglobin and hematocrit remained stable, and platelets remained stable. Continue with Ferrlecit as per Hematology. On Ativan tapering doses. Continue with thiamine, folate, multivitamin, on methadone program. For possible esophagogastroduodenoscopy on Tuesday. Cardiology evaluation pending. We will continue with other current medications. Echocardiogram, normal systolic function with ejection fraction 55% to 60% and diastolic dysfunction. Continue with deep venous thrombosis and gastrointestinal prophylaxis. Jenifer Doty MD
[2018-02-12] MEDS ORDERED: Ferric Sodium Gluconat Complex 62.5 mg/5 ml Vial ONE (09:14)
[2018-02-12] MEDS: Methadone 40 mg Tab PO SCH (09:29)
[2018-02-12] MEDS: Multiple Vitamins Tab PO SCH (09:29)
[2018-02-12] MEDS ORDERED: Ferric Sodium Gluconat Complex 125 MG in Sodium Chloride 0.9% 100 ML IVPB SCH (10:00)
[2018-02-12] MEDS: Ferric Sodium Gluconat Complex 125 MG in Sodium Chloride 0.9% 100 ML IVPB SCH (10:30)
--- NOTE | 2018-02-12 13:23 | CP.PCM.PN ---
Subjective - Date & Time of Evaluation Date of Evaluation: 02/12/18 Time of Evaluation: 13:23 - Subjective Subjective: Progress note dictated #[id number] Objective - Vital Signs/Intake and Output Vital Signs (last 24 hours): Temp Pulse Resp BP Pulse Ox 98.5 F 87 20 111/78 98 02/12/18 08:00 02/12/18 08:02 02/12/18 08:00 02/12/18 08:00 02/12/18 08:00 - Medications Medications: Current Medications Acetaminophen (Tylenol 325mg Tab) 650 mg PO Q6 PRN PRN Reason: fever Last Admin: 02/08/18 13:45 Dose: 650 mg Clonidine HCl (Catapres) 0.1 mg PO Q4H PRN PRN Reason: Symptoms of alcohol withdrawl Last Admin: 02/12/18 09:29 Dose: 0.1 mg Folic Acid (Folic Acid) 1 mg PO DAILY [facility] Last Admin: 02/12/18 09:29 Dose: 1 mg Ferric Sodium Gluconate Complex 125 mg/ Sodium Chloride 110 mls @ 105 mls/hr IVPB DAILY [facility] Stop: 02/17/18 10:31 Last Admin: 02/12/18 10:30 Dose: 105 mls/hr Lorazepam (Ativan) 1 mg IVP Q4H PRN PRN Reason: Symptoms of alcohol withdrawl Last Admin: 02/10/18 20:00 Dose: 1 mg Lorazepam (Ativan) 2 mg PO Q24H [facility] PRN Reason: Taper Stop: 02/13/18 17:59 Methadone HCl (Methadose) 40 mg PO DAILY [facility] Last Admin: 02/12/18 09:29 Dose: 40 mg Methadone HCl (Methadone) 20 mg PO DAILY [facility] Last Admin: 02/12/18 09:28 Dose: 20 mg Multivitamins (Hexavitamin) 1 tab PO DAILY [facility] Last Admin: 02/12/18 09:29 Dose: 1 tab Thiamine HCl (Vitamin B1 Tab) 100 mg PO DAILY [facility] Last Admin: 02/12/18 09:29 Dose: 100 mg Trazodone HCl (Desyrel) 50 mg PO HS PRN PRN Reason: Insomnia Last Admin: 02/08/18 01:01 Dose: 50 mg - Labs Labs: 02/11/18 08:25 02/11/18 08:25 PT 14.8 SECONDS (9.7-12.2) H 02/08/18 23:50 INR 1.4 02/08/18 23:50 APTT 32 SECONDS (21-34) 02/08/18 23:50
--- NOTE | 2018-02-12 14:33 | PN ---
DATE: 02/12/2018 LOCATION: 558, bed A. SUBJECTIVE: This is a 53-year-old male seen and examined in rounds without any significant clinical changes or reported active bleeding, but generalized weakness and malaise, appears to be somewhat more awake and alert. The entire chart is reviewed including but not limited to the most recent lab and radiology study results. Current and the previous medication list, current and the previous medical events. Today's lab results is still pending, but blood glucose level of 117 and the patient reported persistent elevation of total bilirubin 7.3 and latest AST 156 with low albumin as well as pancytopenia for which he had been seen by the hematology and taxation consultant. PHYSICAL EXAMINATION: GENERAL: A 53-year-old male appeared to more awake, alert. VITAL SIGNS: Afebrile with pulse of 84, respiratory rate 20 to 22, blood pressure 116/76. HEENT: Showed pale, dry oral mucous membrane. Bilateral icteric sclerae. LUNGS: Few scattered crepitation. Decreased air entry at bases. HEART: Positive S1 and S2. ABDOMEN: Soft with mild generalized tenderness. No mass or organomegaly. No rebound tenderness or guarding. EXTREMITIES: With lower extremity slight edematous changes. The patient is still having very rare occasional fine tremors of both hands. NEUROLOGICAL: No reported new neurological deficit, sensory or motor. No reported new focal deficits. IMPRESSION: 1. Alcoholism with alcoholic liver disease. 2. Known history of hypertension. 3. Alcohol-induced acute pancreatitis by history. 4. Electrolyte imbalance. 5. Abnormal cancer markers raising the possibility of occult gastrointestinal malignancy. 6. Pancytopenia secondary to above most likely. 7. The patient's anemia could be secondary to upper versus lower gastrointestinal blood loss versus chronic disease. SUGGESTIONS: 1. Agree with your patient. 2. Again, the patient will need endoscopic evaluation of the upper and lower GI tract when his severe thrombocytopenia is somewhat corrected. 3. MRCP. 4. Alpha fetoprotein. 5. Further recommendation to follow. Kimberley Clark MD
--- NOTE | 2018-02-12 21:31 | PN ---
DATE: 02/12/2018 SUBJECTIVE: The patient was seen and examined at bedside. The patient offers no new complaints. PHYSICAL EXAMINATION: GENERAL: Middle-aged male lying in bed, in no acute distress. VITAL SIGNS: Blood pressure 111/78, pulse 81, respirations 20, temperature 98.5 degrees Fahrenheit, O2 saturation is 98% on room air. HEENT: Pupils equal, round and reacting to light and accommodation. Extraocular muscles intact. No icterus. Positive pallor. No oral thrush. No pharyngeal congestion. NECK: Supple. No JVD. LUNGS: Bilateral vesicular breath sounds. No wheezing, no rhonchi. CARDIOVASCULAR SYSTEM: S1 and S2 present. Regular. ABDOMEN: Soft and nontender. Bowel sounds present. No guarding. No rigidity. No rebound tenderness noted. CENTRAL NERVOUS SYSTEM: Alert, awake, and oriented x2. Tremors of the upper extremities. EXTREMITIES: No edema. Palpable peripheral pulses. MEDICATIONS: Tylenol 650 mg p.o. every 6 hours p.r.n., Catapres 0.1 mg p.o. every 4 hours p.r.n., Ferrlecit 125 mg daily, folic acid 1 mg daily, Ativan 1 mg IV push every 4 hours, Ativan 2 mg p.o. daily, methadone 60 mg daily, multivitamin 1 tab daily, thiamine 100 mg daily, trazodone 50 mg p.o. at bedtime. LABORATORY DATA: Accu-Chek 115, 105, 117 and 97. ASSESSMENT AND PLAN: A middle-aged male with history of hypertension, ethyl alcohol abuse, admitted for ethyl alcohol intoxication, pancytopenia, multiple electrolyte abnormalities, abnormal tumor markers, abnormal liver function test secondary to alcoholic hepatitis, hepatitis C positive. We will continue with Ativan tapering doses, on methadone. Continue with thiamine, folate, multivitamin. On IV Ferrlecit. We will repeat labs in the morning for possible EGD in a.m. Follow up with Psychiatry and GI. His H and H remained stable after two units of PRBC and two units of platelet transfusion, repeat labs in a.m. Jenifer Doty MD [facility] # [id number]
--- NOTE | 2018-02-13 05:59 | CON ---
DATE: 02/08/2018 I was called for GI consultation by the admitting MD as well as the medical staff in the floor. The patient is seen and fully examined on 02/08/2018 in the presence of the staff in the floor. The entire chart is reviewed including, but not limited to the most recent lab and radiology study results, current and the previous medication list, current and the previous medical events, allergy to medication list as well as all the available current and the previous medical record. A short handwriting consultation sheet left in the chart. HISTORY OF PRESENT ILLNESS: This is a 53-year-old male, known history of, but not limited to heavy alcohol intake, who was admitted to the hospital through the emergency room, requesting detox from his alcohol habits, was complaining of generalized weakness, malaise, tremors, and poor oral intake. Keeping in mind that the patient also has a history of substance abuse, mainly heroin. No reported active bleeding at the time of his admission. No chest pain, palpitation, but mild shortness of breath with generalized weakness and malaise. PAST MEDICAL HISTORY: Including mainly, but not limited to: 1. Hypertension. 2. Peptic ulcer disease. 3. Pneumonia. 4. Alcoholism with alcoholic liver disease. FAMILY HISTORY: Unknown. SOCIAL HISTORY: Positive for substance abuse and alcohol abuse. CURRENT MEDICATIONS: Post admission medication lists were reviewed. ALLERGIC TO MEDICATIONS: UNKNOWN. LABORATORY DATA: After being admitted to the hospital, the patient was found to have pancytopenia with white blood cells of 1.9, hemoglobin 8, hematocrit 25.2 with thrombocytopenia of 16 with low creatinine of 0.6. PHYSICAL EXAMINATION: GENERAL: A 53-year-old male, appears to be awake, alert, somewhat oriented, afebrile with pulse of 82, respiratory rate 18-20, blood pressure 120/86. HEENT: Showed pale, dry mucous membrane with bilateral icteric sclerae. LYMPH NODES: No lymphadenitis or lymphadenopathy. LUNGS: Few scattered crepitations with decreased air entry at bases. HEART: Positive S1 and S2. ABDOMEN: Soft with mild generalized tenderness. No mass or organomegaly. No rebound tenderness or guarding. Spleen is somewhat palpable. RECTAL: The patient refused. EXTREMITIES: Lower extremities, mild edematous changes. No clubbing or cyanosis. The patient still has mild fine tremors of both hands. NEUROLOGIC: No reported neurological deficits, sensory or motor. No new focal deficits. IMPRESSION: 1. Alcoholism with possible early stage of delirium tremens. 2. Pancytopenia that could be secondary to liver cirrhosis versus alcohol-induced bone marrow depression. 3. To rule out gastrointestinal blood loss, upper versus lower. 4. Rule out occult gastrointestinal malignancy. 5. Known history of mainly hypertension, peptic ulcer disease, and pneumonia, to rule out gastric versus duodenal ulcers. SUGGESTIONS: 1. Continue current management. 2. Correct any underlying pancytopenia, needs hematology/oncology consult. 3. Cancer markers. 4. Blood transfusion to keep hemoglobin around 10 g percent. 5. Proton pump inhibitors. 6. Ammonia level with possible neomycin p.o. as needed. 7. Sectional abdominal and pelvic CAT scan. 8. The patient will need endoscopic evaluation of the GI tract when he is more stable clinically. Thank you for letting me to participate in your patient's case management. Kimberley Clark MD
[2018-02-13 09:16] LABS: BASO % 1.4 % (0.0-2.0); EOS % 0.3 % (0.0-4.0); HEMOGLOBIN 8.9 g/dL (12.0-18.0); LYMPH # 0.8 K/uL (1.0-4.3); LYMPH % 25.6 % (20.0-40.0); MEAN CELL VOLUME 95.7 fL (80.0-94.0); MEAN CORPUSCULAR HEMOGLOBIN 31.6 pg (27.0-31.0); MEAN PLATELET VOLUME 10.7 fL (7.2-11.7); MONO # 0.7 K/uL (0.0-0.8); MONO % 20.8 % (0.0-10.0); NEUT # 1.6 K/uL (1.8-7.0); NEUT % 51.9 % (50.0-75.0); PLATELET COUNT 35 K/uL (130-400); RBC 2.81 Mil/uL (4.40-5.90); RED CELL DISTRIBUTION WIDTH 20.6 % (11.5-14.5); WHITE BLOOD COUNT 3.1 K/uL (4.8-10.8)
[2018-02-13 09:22] LABS: INR 1.3; PROTHROMBIN TIME 14.7 SECONDS (9.7-12.2)
--- NOTE | 2018-02-13 09:33 | CP.PCM.PN ---
Subjective - Date & Time of Evaluation Date of Evaluation: 02/13/18 Time of Evaluation: 09:33 - Subjective Subjective: Progress note dictated # [id number] Objective - Vital Signs/Intake and Output Vital Signs (last 24 hours): Temp Pulse Resp BP Pulse Ox 98.5 F 84 20 150/84 98 02/13/18 08:00 02/13/18 08:00 02/13/18 08:00 02/13/18 08:00 02/13/18 08:00 - Medications Medications: Current Medications Acetaminophen (Tylenol 325mg Tab) 650 mg PO Q6 PRN PRN Reason: fever Last Admin: 02/08/18 13:45 Dose: 650 mg Clonidine HCl (Catapres) 0.1 mg PO Q4H PRN PRN Reason: Symptoms of alcohol withdrawl Last Admin: 02/12/18 09:29 Dose: 0.1 mg Folic Acid (Folic Acid) 1 mg PO DAILY [facility] Last Admin: 02/12/18 09:29 Dose: 1 mg Ferric Sodium Gluconate Complex 125 mg/ Sodium Chloride 110 mls @ 105 mls/hr IVPB DAILY [facility] Stop: 02/17/18 10:31 Last Admin: 02/12/18 10:30 Dose: 105 mls/hr Lorazepam (Ativan) 1 mg IVP Q4H PRN PRN Reason: Symptoms of alcohol withdrawl Last Admin: 02/10/18 20:00 Dose: 1 mg Lorazepam (Ativan) 2 mg PO Q24H [facility] PRN Reason: Taper Stop: 02/13/18 17:59 Last Admin: 02/12/18 18:11 Dose: 2 mg Methadone HCl (Methadose) 40 mg PO DAILY [facility] Last Admin: 02/12/18 09:29 Dose: 40 mg Methadone HCl (Methadone) 20 mg PO DAILY [facility] Last Admin: 02/12/18 09:28 Dose: 20 mg Multivitamins (Hexavitamin) 1 tab PO DAILY [facility] Last Admin: 02/12/18 09:29 Dose: 1 tab Thiamine HCl (Vitamin B1 Tab) 100 mg PO DAILY [facility] Last Admin: 02/12/18 09:29 Dose: 100 mg Trazodone HCl (Desyrel) 50 mg PO HS PRN PRN Reason: Insomnia Last Admin: 02/12/18 21:56 Dose: 50 mg - Labs Labs: 02/13/18 09:01 02/11/18 08:25 PT 14.7 SECONDS (9.7-12.2) H 02/13/18 09:01 INR 1.3 02/13/18 09:01 APTT 36 SECONDS (21-34) H 02/13/18 09:01
[2018-02-13 09:38] LABS: ALB/GLOB RATIO 0.8 (1.0-2.1); ALBUMIN 3.2 g/dL (3.5-5.0); ALT/SGPT 41 U/L (21-72); AST/SGOT 99 U/L (17-59); BLOOD UREA NITROGEN 19 mg/dL (9-20); CALCIUM 8.5 mg/dl (8.6-10.4); GFR NON-AFRICAN AMERICAN > 60
[2018-02-13] MEDS: Ferric Sodium Gluconat Complex 125 MG in Sodium Chloride 0.9% 100 ML IVPB SCH (09:56)
[2018-02-13 10:29] LABS: BASOPHIL 1 % (0-2); EOSINOPHIL 2 % (0-4); LYMPHOCYTE 25 % (20-40); MONOCYTE 21 % (0-10); NEUTROPHIL 51 % (50-75); PLATELET ESTIMATE DECREASED (NORMAL); TOTAL CELLS COUNTED 100
[2018-02-13] MEDS: Methadone 40 mg Tab PO SCH (10:29)
[2018-02-13] MEDS: Multiple Vitamins Tab PO SCH (10:29)
[2018-02-13 10:30] LABS: ANISOCYTOSIS SLIGHT; HYPOCHROMIC MODERATE; OVALOCYTES SLIGHT; POIKILOCYTOSIS SLIGHT; TARGET CELLS SLIGHT
[2018-02-13 10:31] LABS: TEARDROP CELLS SLIGHT
[2018-02-13] MEDS ORDERED: Phytonadione 10 mg/ml Inj (Adult) SC ONE (11:00)
--- NOTE | 2018-02-13 13:38 | PCM.PYCHPN ---
Psychiatric Progress Note - Psychiatric Progress Note Patient seen today, length of contact: 15 min Patient Chief Complaint: "OK" Problems Identified/Issues Discussed: The pt is seen, chart reviewed, case discussed with staff. 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) used Less confused Not as depressed Psych will sign off Medication Change: Yes (detox changes daily) Medical Record Reviewed: Yes Mental Status Examination - Cognitive Function Orientation: Person, Place, Situation Memory: Impaired Attention: Poor Concentration: Poor Association: Loose Fund of Knowledge: Poor - Mood Mood: Depressed - Affect Affect: Blunted - Speech Speech: Slurred - Formal Thought Process Formal Thought Process: No Impairment - Suicidal Ideation Suicidal Ideation: No - Homicidal Ideation Homicidal Ideation: No Goal/Treatment Plan - Goal/Treatment Plan Need for Continued Stay: Other (medical) Progress Toward Problem(s) and Goals/Treatment Plan: Ativan taper for alcohol withdrawal - ending soon Continue methadone maintenance at 60 mg As need medications Psychoeducation and support daily Encourage compliance with meds and after care Refer to outpatient program Teach healthy lifestyle methods We will sign off
--- NOTE | 2018-02-13 15:21 | PN ---
DATE: 02/13/2018 LOCATION: 558, bed A. SUBJECTIVE: This is a 53-year-old male seen and examined in rounds without significant clinical changes or reported active bleeding with intermittent period of mild agitation. The entire chart is reviewed including but not limited to the most recent lab and radiology study results, current and the previous medication list, current and the previous medical events. Case discussed with the staff at length. The patient was initially scheduled for upper endoscopy today; however, he was provided breakfast. Procedure has to be rescheduled for tomorrow morning. Lab results today show pancytopenia again with white blood cells of 3.1, hemoglobin 8.9, hematocrit 26.8 with platelet count of 35. PT of 14.7 and PTT of 36, calcium 8.5, total bilirubin 6.1 with elevated AST 299, albumin 2.2. PHYSICAL EXAMINATION: GENERAL: A 53-year-old male, afebrile with heart rate of 86, respiratory rate 20-22, blood pressure 144/82. HEENT: Showed pale dry oral mucous membrane. Bilateral icteric sclerae. LUNGS: Few scattered crepitation. Decreased air entry at bases. HEART: Positive S1 and S2. ABDOMEN: Soft with slight generalized tenderness. No mass or organomegaly. No rebound tenderness or guarding. EXTREMITIES: Without significant clubbing, cyanosis or edema. NEUROLOGICAL: No reported new neurological deficits, sensory or motor. IMPRESSION: 1. Alcoholism with alcoholic liver disease. 2. Abnormal liver function tests secondary to above associated with jaundice. 3. Alcohol-induced acute pancreatitis by recent history. 4. Known history of hypertension. 5. Anemia, rule out upper versus lower gastrointestinal blood loss, with pancytopenia, most likely secondary to above. 6. Abnormal cancer markers, rule out occult gastrointestinal malignancy. SUGGESTIONS: 1. Continue current management. 2. Correct underlying coagulopathy, awaiting Oncology and Hematology reevaluation. 3. 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 Reschedule upper endoscopy for tomorrow. Kimberley Clark MD
--- NOTE | 2018-02-13 18:32 | CARD ---
APPROVED REPORT Date of service: 02/10/2018 EKG Measurement Heart [id number] <Conclusion> Normal sinus rhythm ST & T wave abnormality, consider anterolateral ischemia but still nonspecific Abnormal ECG
--- NOTE | 2018-02-13 23:02 | CP.PCM.PN ---
Subjective - Date & Time of Evaluation Date of Evaluation: 02/10/18 Time of Evaluation: 19:00 - Subjective Subjective: No complaints. Objective - Vital Signs/Intake and Output Vital Signs (last 24 hours): Temp Pulse Resp BP Pulse Ox 97.7 F 88 20 110/71 97 02/13/18 15:30 02/13/18 18:00 02/13/18 15:30 02/13/18 15:30 02/13/18 15:30 - Medications Medications: Current Medications Acetaminophen (Tylenol 325mg Tab) 650 mg PO Q6 PRN PRN Reason: fever Last Admin: 02/08/18 13:45 Dose: 650 mg Clonidine HCl (Catapres) 0.1 mg PO Q4H PRN PRN Reason: Symptoms of alcohol withdrawl Last Admin: 02/13/18 10:30 Dose: 0.1 mg Folic Acid (Folic Acid) 1 mg PO DAILY [facility] Last Admin: 02/13/18 10:30 Dose: 1 mg Ferric Sodium Gluconate Complex 125 mg/ Sodium Chloride 110 mls @ 105 mls/hr IVPB DAILY [facility] Stop: 02/17/18 10:31 Last Admin: 02/13/18 09:56 Dose: 105 mls/hr Lorazepam (Ativan) 1 mg IVP Q4H PRN PRN Reason: Symptoms of alcohol withdrawl Last Admin: 02/13/18 10:56 Dose: 1 mg Methadone HCl (Methadose) 40 mg PO DAILY [facility] Last Admin: 02/13/18 10:29 Dose: 40 mg Methadone HCl (Methadone) 20 mg PO DAILY [facility] Last Admin: 02/13/18 10:30 Dose: 20 mg Multivitamins (Hexavitamin) 1 tab PO DAILY [facility] Last Admin: 02/13/18 10:29 Dose: 1 tab Thiamine HCl (Vitamin B1 Tab) 100 mg PO DAILY [facility] Last Admin: 02/13/18 10:29 Dose: 100 mg Trazodone HCl (Desyrel) 50 mg PO HS PRN PRN Reason: Insomnia Last Admin: 02/13/18 22:37 Dose: 50 mg - Labs Labs: 02/13/18 09:01 02/13/18 09:01 PT 14.7 SECONDS (9.7-12.2) H 02/13/18 09:01 INR 1.3 02/13/18 09:01 APTT 36 SECONDS (21-34) H 02/13/18 09:01 - Head Exam Head Exam: ATRAUMATIC - Eye Exam Eye Exam: Normal appearance - ENT Exam ENT Exam: Mucous Membranes Dry - Respiratory Exam Respiratory Exam: NORMAL BREATHING PATTERN - Cardiovascular Exam Cardiovascular Exam: +S1, +S2 - GI/Abdominal Exam GI & Abdominal Exam: Normal Bowel Sounds Assessment and Plan (1) Pancytopenia Assessment & Plan: secondary to alcohol platelet transfusion today s/p PRBC and plt transfusion alcohol cessation; being seen by psychiatry borderline iron stores on IV iron and GI w/u in progress Status: Acute
--- NOTE | 2018-02-13 23:04 | CP.PCM.PN ---
Subjective - Date & Time of Evaluation Date of Evaluation: 02/13/18 Time of Evaluation: 20:00 - Subjective Subjective: No complaints. Objective - Vital Signs/Intake and Output Vital Signs (last 24 hours): Temp Pulse Resp BP Pulse Ox 97.7 F 88 20 110/71 97 02/13/18 15:30 02/13/18 18:00 02/13/18 15:30 02/13/18 15:30 02/13/18 15:30 - Medications Medications: Current Medications Acetaminophen (Tylenol 325mg Tab) 650 mg PO Q6 PRN PRN Reason: fever Last Admin: 02/08/18 13:45 Dose: 650 mg Clonidine HCl (Catapres) 0.1 mg PO Q4H PRN PRN Reason: Symptoms of alcohol withdrawl Last Admin: 02/13/18 10:30 Dose: 0.1 mg Folic Acid (Folic Acid) 1 mg PO DAILY [facility] Last Admin: 02/13/18 10:30 Dose: 1 mg Ferric Sodium Gluconate Complex 125 mg/ Sodium Chloride 110 mls @ 105 mls/hr IVPB DAILY [facility] Stop: 02/17/18 10:31 Last Admin: 02/13/18 09:56 Dose: 105 mls/hr Lorazepam (Ativan) 1 mg IVP Q4H PRN PRN Reason: Symptoms of alcohol withdrawl Last Admin: 02/13/18 10:56 Dose: 1 mg Methadone HCl (Methadose) 40 mg PO DAILY [facility] Last Admin: 02/13/18 10:29 Dose: 40 mg Methadone HCl (Methadone) 20 mg PO DAILY [facility] Last Admin: 02/13/18 10:30 Dose: 20 mg Multivitamins (Hexavitamin) 1 tab PO DAILY [facility] Last Admin: 02/13/18 10:29 Dose: 1 tab Thiamine HCl (Vitamin B1 Tab) 100 mg PO DAILY [facility] Last Admin: 02/13/18 10:29 Dose: 100 mg Trazodone HCl (Desyrel) 50 mg PO HS PRN PRN Reason: Insomnia Last Admin: 02/13/18 22:37 Dose: 50 mg - Labs Labs: 02/13/18 09:01 02/13/18 09:01 PT 14.7 SECONDS (9.7-12.2) H 02/13/18 09:01 INR 1.3 02/13/18 09:01 APTT 36 SECONDS (21-34) H 02/13/18 09:01 - Head Exam Head Exam: ATRAUMATIC - Eye Exam Eye Exam: Normal appearance - ENT Exam ENT Exam: Mucous Membranes Dry - Respiratory Exam Respiratory Exam: NORMAL BREATHING PATTERN - Cardiovascular Exam Cardiovascular Exam: +S1, +S2 - GI/Abdominal Exam GI & Abdominal Exam: Normal Bowel Sounds Assessment and Plan (1) Pancytopenia Assessment & Plan: secondary to alcohol s/p PRBC and plt transfusion plt transfusion slowly improving alcohol cessation; being seen by psychiatry borderline iron stores on IV iron and GI w/u in progress Status: Acute
--- NOTE | 2018-02-14 01:08 | PN ---
DATE: 02/13/2018 SUBJECTIVE: The patient was seen and examined at bedside. The patient offers no new complaints. Claims he is feeling better and requesting to be discharged. Denies any new complaints. PHYSICAL EXAMINATION: GENERAL: Middle-aged male, lying in bed, in no acute distress. VITAL SIGNS: Blood pressure 110/71, pulse 67, respirations 20, temperature 97.7 degrees Fahrenheit, O2 sat is 97% on room air. HEENT: Pupils equal, round, and reacting to light and accommodation. Extraocular muscles intact. Slightly icterus. Positive pallor. No oral thrush. No pharyngeal congestion. NECK: Supple. No JVD. LUNGS: Bilateral vesicular breath sounds. No wheezing. No rhonchi. CARDIOVASCULAR SYSTEM: S1 and S2 present, regular. ABDOMEN: Soft and nontender. Bowel sounds present. No guarding. No rigidity. No rebound tenderness noted. CENTRAL NERVOUS SYSTEM: Alert, awake, and oriented x2 to 3. No focal deficits noted. EXTREMITIES: Tremors of the upper extremities noted. Extremities, no edema. Palpable peripheral pulses. MEDICATIONS: Include Tylenol 650 mg p.o. every 6 hours p.r.n., clonidine 0.1 mg p.o. every 4 hours p.r.n. for withdrawal, Ferrlecit 125 mg IV daily, folic acid 1 mg daily, Ativan 1 mg IV push every 4 hours p.r.n., methadone 60 mg daily, multivitamin one tablet daily, thiamine 100 mg p.o. daily, trazodone 50 mg p.o. at bedtime. LABORATORY DATA: Labs done from this morning: WBC 3.1, hemoglobin 8.9, hematocrit 26.8, platelets 35. PT 14.7, INR 1.3, PTT 36. Sodium 135, potassium 5, chloride 104, bicarb 20, BUN 19, creatinine 0.8, glucose 98, calcium 8.5, phosphorus 3.4, magnesium 1.7. Total bilirubin 6.1, AST 99, ALT 41, alkaline phosphatase 88, total protein 7.1, albumin 3.2. RPR nonreactive. HIV negative. ASSESSMENT AND PLAN: Middle-aged male with history of hypertension, ethyl alcohol abuse. Admitted for intoxication, ethyl alcohol withdrawal, alcoholic hepatitis, pancytopenia, drug abuse. The patient completed Ativan tapering doses. The patient is still thrombocytopenic. He has a history of chronic thrombocytopenia or the lower platelets in the past being in 40s. We will continue with Ativan as needed. Watch neurologic status and mental status. There are no obvious signs of bleeding. Monitor hemoglobin and hematocrit closely. We will continue with deep venous thrombosis and gastrointestinal prophylaxis. For possible esophagogastroduodenoscopy, we will follow up with Dr. Perez. The patient may need another unit of platelet and fresh frozen plasma transfusion prior to any intervention. We will repeat labs in the morning. We will check ammonia level. We will continue with methadone as per Psychiatry. Continue with thiamine, folate, multivitamin, and intravenous Ferrlecit for anemia. We will follow up with social service agency director for discharge planning. Jenifer Doty MD
[2018-02-14 07:51] LABS: BASO # 0.1 K/uL (0.0-0.2); BASO % 1.8 % (0.0-2.0); EOS % 1.2 % (0.0-4.0); HEMOGLOBIN 9.2 g/dL (12.0-18.0); LYMPH # 0.9 K/uL (1.0-4.3); LYMPH % 30.1 % (20.0-40.0); MEAN CELL VOLUME 97.6 fL (80.0-94.0); MEAN CORPUSCULAR HEMOGLOBIN 31.8 pg (27.0-31.0); MEAN CORPUSCULAR HGB CONC 32.6 g/dL (33.0-37.0); MEAN PLATELET VOLUME 11.3 fL (7.2-11.7); MONO # 0.7 K/uL (0.0-0.8); MONO % 25.2 % (0.0-10.0); NEUT # 1.2 K/uL (1.8-7.0); NEUT % 41.7 % (50.0-75.0); NRBC % 0.1 % (0.0-2.0); PLATELET COUNT 37 K/uL (130-400); RBC 2.89 Mil/uL (4.40-5.90); RED CELL DISTRIBUTION WIDTH 21.1 % (11.5-14.5)
[2018-02-14 08:00] LABS: ALB/GLOB RATIO 0.8 (1.0-2.1); ALBUMIN 3.1 g/dL (3.5-5.0); ALT/SGPT 46 U/L (21-72); AST/SGOT 99 U/L (17-59); BLOOD UREA NITROGEN 15 mg/dL (9-20); CALCIUM 8.6 mg/dl (8.6-10.4); GFR NON-AFRICAN AMERICAN > 60
[2018-02-14 09:58] LABS: BASOPHIL 1 % (0-2); NEUTROPHIL 43 % (50-75); TOTAL CELLS COUNTED 100
[2018-02-14 09:59] LABS: LYMPHOCYTE 37 % (20-40); MONOCYTE 19 % (0-10); PLATELET ESTIMATE DECREASED (NORMAL)
[2018-02-14 10:00] LABS: ANISOCYTOSIS SLIGHT; GIANT PLATELETS PRESENT; HYPOCHROMIC SLIGHT; LARGE PLATELETS PRESENT; MICROCYTOSIS SLIGHT; POIKILOCYTOSIS SLIGHT; TARGET CELLS SLIGHT; TEARDROP CELLS SLIGHT
--- NOTE | 2018-02-14 10:05 | CP.PCM.PN ---
Subjective - Date & Time of Evaluation Date of Evaluation: 02/14/18 Time of Evaluation: 10:05 - Subjective Subjective: Progress note dictated #[id number] Objective - Vital Signs/Intake and Output Vital Signs (last 24 hours): Temp Pulse Resp BP Pulse Ox 98.4 F 71 20 93/65 L 98 02/13/18 23:27 02/14/18 01:00 02/13/18 23:27 02/13/18 23:27 02/13/18 23:27 - Medications Medications: Current Medications Acetaminophen (Tylenol 325mg Tab) 650 mg PO Q6 PRN PRN Reason: fever Last Admin: 02/08/18 13:45 Dose: 650 mg Clonidine HCl (Catapres) 0.1 mg PO Q4H PRN PRN Reason: Symptoms of alcohol withdrawl Last Admin: 02/13/18 10:30 Dose: 0.1 mg Folic Acid (Folic Acid) 1 mg PO DAILY [facility] Last Admin: 02/13/18 10:30 Dose: 1 mg Ferric Sodium Gluconate Complex 125 mg/ Sodium Chloride 110 mls @ 105 mls/hr IVPB DAILY [facility] Stop: 02/17/18 10:31 Last Admin: 02/13/18 09:56 Dose: 105 mls/hr Lorazepam (Ativan) 1 mg IVP Q4H PRN PRN Reason: Symptoms of alcohol withdrawl Last Admin: 02/14/18 03:30 Dose: 1 mg Methadone HCl (Methadose) 40 mg PO DAILY [facility] Last Admin: 02/13/18 10:29 Dose: 40 mg Methadone HCl (Methadone) 20 mg PO DAILY [facility] Last Admin: 02/13/18 10:30 Dose: 20 mg Multivitamins (Hexavitamin) 1 tab PO DAILY [facility] Last Admin: 02/13/18 10:29 Dose: 1 tab Thiamine HCl (Vitamin B1 Tab) 100 mg PO DAILY [facility] Last Admin: 02/13/18 10:29 Dose: 100 mg Trazodone HCl (Desyrel) 50 mg PO HS PRN PRN Reason: Insomnia Last Admin: 02/13/18 22:37 Dose: 50 mg - Labs Labs: 02/14/18 07:08 02/14/18 07:08 PT 14.7 SECONDS (9.7-12.2) H 02/13/18 09:01 INR 1.3 02/13/18 09:01 APTT 36 SECONDS (21-34) H 02/13/18 09:01
[2018-02-14] MEDS: Multiple Vitamins Tab PO SCH (12:09)
[2018-02-14] MEDS: Ferric Sodium Gluconat Complex 125 MG in Sodium Chloride 0.9% 100 ML IVPB SCH (12:09)
[2018-02-14] MEDS: Methadone 40 mg Tab PO SCH (12:09)
--- NOTE | 2018-02-15 00:43 | PN ---
DATE: 02/14/2018 SUBJECTIVE: The patient was seen and examined at bedside. The patient denies any new complaints. Claims that the patient is at [facility] and wants to be discharged, wanted to know when the EGD be done. Denies any new complaints. PHYSICAL EXAMINATION: GENERAL: Middle aged male, lying in bed, in no acute distress. VITAL SIGNS: Blood pressure 93/65, pulse 68, respirations 20, temperature 98.4 degrees Fahrenheit, O2 saturation is 98% on room air. HEENT: Pupils equal, round, and reacting to light and accommodation. Extraocular muscles are intact. Positive icterus. Positive pallor. No oral thrush. No pharyngeal congestion. NECK: Supple. No JVD. LUNGS: Bilateral vesicular breath sounds. No wheezing. No rhonchi. CVS: S1 and S2 present. Regular. ABDOMEN: Soft and nontender. Bowel sounds present. No guarding. No rigidity. No rebound tenderness noted. 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 No focal deficits noted. EXTREMITIES: No edema. Palpable peripheral pulses. MEDICATIONS: Include Tylenol 650 mg p.o. every 6 hours p.r.n., clonidine 0.1 mg p.o. every 4 hours p.r.n, ferrous gluconate 125 mg IV, folic acid 1 mg daily, Ativan 1 mg IV push every 4 hours p.r.n., methadone 60 mg daily, multivitamin one tablet daily, thiamine 100 mg daily, trazodone 50 mg p.o. at bedtime. LABORATORY DATA: From this morning: WBC 3, hemoglobin 9.2, hematocrit 28.2, platelets 37,000. Sodium 137, potassium 4.6, chloride 105, bicarb 21, BUN 15, creatinine 0.8, glucose 100, calcium 8.6. Phosphorus 3.7, magnesium 1.7, total bilirubin 5.4, AST 99, ALT 46, alkaline phosphatase 98, total protein 7.2, albumin 3.1. ASSESSMENT AND PLAN: Middle aged male with history of hypertension, ethanol abuse, admitted for ethanol intoxication withdrawal, acute alcoholic hepatitis, pancytopenia secondary to alcohol abuse, electrolyte disorders, hemoglobin and hematocrit improving, status post two units of packed red blood cells transfusion and on IV Ferrlecit, platelets are stable. The patient has chronic thrombocytopenia, completed Ativan taper. The patient is still confused. Ammonia level on 02/10/2018 was 34. We will repeat ammonia level, give lactulose. Follow up with Psychiatry. The patient is for possible esophagogastroduodenoscopy. We will continue with thiamine, folate, multivitamin supplementation. We will follow up with Gastroenterology for possible esophagogastroduodenoscopy. Continue with IV Ferrlecit as per Hematology. instructional services librarian for discharge planning. Jenifer Doty MD
[2018-02-15 07:09] LABS: ALB/GLOB RATIO 0.7 (1.0-2.1); ALBUMIN 2.8 g/dL (3.5-5.0); ALT/SGPT 45 U/L (21-72); AST/SGOT 87 U/L (17-59); BASO % 0.9 % (0.0-2.0); BLOOD UREA NITROGEN 15 mg/dL (9-20); CALCIUM 8.6 mg/dl (8.6-10.4); EOS % 0.8 % (0.0-4.0); GFR NON-AFRICAN AMERICAN > 60; HEMOGLOBIN 8.3 g/dL (12.0-18.0); LYMPH # 0.7 K/uL (1.0-4.3); LYMPH % 31.3 % (20.0-40.0); MEAN CELL VOLUME 97.5 fL (80.0-94.0); MEAN CORPUSCULAR HEMOGLOBIN 31.7 pg (27.0-31.0); MEAN CORPUSCULAR HGB CONC 32.5 g/dL (33.0-37.0); MEAN PLATELET VOLUME 11.4 fL (7.2-11.7); MONO # 0.7 K/uL (0.0-0.8); MONO % 28.1 % (0.0-10.0); NEUT # 0.9 K/uL (1.8-7.0); NEUT % 38.9 % (50.0-75.0); NRBC % 0.1 % (0.0-2.0); PLATELET COUNT 40 K/uL (130-400); RBC 2.63 Mil/uL (4.40-5.90); RED CELL DISTRIBUTION WIDTH 20.7 % (11.5-14.5); WHITE BLOOD COUNT 2.3 K/uL (4.8-10.8)
[2018-02-15] MEDS: Methadone 40 mg Tab PO SCH (10:03)
[2018-02-15] MEDS: Multiple Vitamins Tab PO SCH (10:04)
[2018-02-15] MEDS: Ferric Sodium Gluconat Complex 125 MG in Sodium Chloride 0.9% 100 ML IVPB SCH (10:22)
[2018-02-15 10:29] LABS: LYMPHOCYTE 40 % (20-40); MONOCYTE 12 % (0-10); NEUTROPHIL 48 % (50-75); TOTAL CELLS COUNTED 100
[2018-02-15 10:30] LABS: ANISOCYTOSIS SLIGHT; PLATELET ESTIMATE DECREASED (NORMAL)
[2018-02-15 10:30] LABS: % CD4 (T HELPER CELL) 36 Percent (30-61); % CD8 (SUPPRESSOR T CELL) 56 Percent (12-42); ABSOLUTE CD4 CELLS 247 Cells/mcL (490-1740); ABSOLUTE CD8 CELLS 380 Cells/mcL (180-1170); ABSOLUTE LYMPHOCYTES 684 Cells/mcL (850-3900); HELPER/SUPPRESSOR RATIO 0.65 Ratio (0.86-5.00)
[2018-02-15 10:39] LABS: HYPOCHROMIC SLIGHT; POLYCHROMIC SLIGHT
[2018-02-15] MEDS ORDERED: Lidocaine Hydrochloride 5 ML INJ ONE (12:21)
[2018-02-15] MEDS ORDERED: Midazolam 2 MG/2 ML VIAL ONE (12:21)
[2018-02-15] MEDS ORDERED: Propofol 10 mg/ml Inj (20 ML) ONE (12:21)
--- NOTE | 2018-02-15 12:38 | CP.PCM.PN ---
Subjective - Date & Time of Evaluation Date of Evaluation: 02/15/18 Time of Evaluation: 12:38 - Subjective Subjective: Progress note dictated #[id number] Objective - Vital Signs/Intake and Output Vital Signs (last 24 hours): Temp Pulse Resp BP Pulse Ox 98.3 F 70 20 110/69 96 02/15/18 12:14 02/15/18 12:14 02/15/18 12:14 02/15/18 12:14 02/15/18 12:14 Intake and Output: 02/15/18 02/15/18 06:59 18:59 Intake Total 0 100 Balance 0 100 - Medications Medications: Current Medications Acetaminophen (Tylenol 325mg Tab) 650 mg PO Q6 PRN PRN Reason: fever Last Admin: 02/08/18 13:45 Dose: 650 mg Clonidine HCl (Catapres) 0.1 mg PO Q4H PRN PRN Reason: Symptoms of alcohol withdrawl Last Admin: 02/15/18 10:03 Dose: 0.1 mg Folic Acid (Folic Acid) 1 mg PO DAILY [facility] Last Admin: 02/15/18 10:04 Dose: 1 mg Ferric Sodium Gluconate Complex 125 mg/ Sodium Chloride 110 mls @ 105 mls/hr IVPB DAILY [facility] Stop: 02/17/18 10:31 Last Admin: 02/15/18 10:22 Dose: 105 mls/hr Lactulose (Enulose) 20 gm PO HS [facility] Lactulose (Enulose) 20 gm PO BID [facility] Lorazepam (Ativan) 1 mg IVP Q4H PRN PRN Reason: Symptoms of alcohol withdrawl Last Admin: 02/14/18 20:48 Dose: 1 mg Methadone HCl (Methadose) 40 mg PO DAILY [facility] Last Admin: 02/15/18 10:03 Dose: 40 mg Methadone HCl (Methadone) 20 mg PO DAILY [facility] Last Admin: 02/15/18 10:04 Dose: 20 mg Metoclopramide HCl (Reglan) 5 mg IVP Q8H [facility] Multivitamins (Hexavitamin) 1 tab PO DAILY [facility] Last Admin: 02/15/18 10:04 Dose: 1 tab Thiamine HCl (Vitamin B1 Tab) 100 mg PO DAILY [facility] Last Admin: 02/15/18 10:04 Dose: 100 mg Trazodone HCl (Desyrel) 50 mg PO HS PRN PRN Reason: Insomnia Last Admin: 02/14/18 21:48 Dose: 50 mg - Labs Labs: 02/15/18 06:29 02/15/18 06:29 PT 14.7 SECONDS (9.7-12.2) H 02/13/18 09:01 INR 1.3 02/13/18 09:01 APTT 36 SECONDS (21-34) H 02/13/18 09:01
[2018-02-15 15:49] VITALS: RESP 20
--- NOTE | 2018-02-15 20:26 | CP.PCM.PN ---
Subjective - Date & Time of Evaluation Date of Evaluation: 02/14/18 Time of Evaluation: 13:00 - Subjective Subjective: Appears comfortable. Objective - Vital Signs/Intake and Output Vital Signs (last 24 hours): Temp Pulse Resp BP Pulse Ox 97.7 F 88 20 98/60 L 96 02/15/18 15:49 02/15/18 15:49 02/15/18 15:49 02/15/18 15:49 02/15/18 15:49 Intake and Output: 02/15/18 02/16/18 18:59 06:59 Intake Total 150 Balance 150 - Medications Medications: Current Medications Acetaminophen (Tylenol 325mg Tab) 650 mg PO Q6 PRN PRN Reason: fever Last Admin: 02/08/18 13:45 Dose: 650 mg Clonidine HCl (Catapres) 0.1 mg PO Q4H PRN PRN Reason: Symptoms of alcohol withdrawl Last Admin: 02/15/18 10:03 Dose: 0.1 mg Folic Acid (Folic Acid) 1 mg PO DAILY [facility] Last Admin: 02/15/18 10:04 Dose: 1 mg Ferric Sodium Gluconate Complex 125 mg/ Sodium Chloride 110 mls @ 105 mls/hr IVPB DAILY [facility] Stop: 02/17/18 10:31 Last Admin: 02/15/18 10:22 Dose: 105 mls/hr Lactulose (Enulose) 20 gm PO HS [facility] Lactulose (Enulose) 20 gm PO BID [facility] Last Admin: 02/15/18 18:02 Dose: 20 gm Lorazepam (Ativan) 1 mg IVP Q4H PRN PRN Reason: Symptoms of alcohol withdrawl Last Admin: 02/14/18 20:48 Dose: 1 mg Methadone HCl (Methadose) 40 mg PO DAILY [facility] Last Admin: 02/15/18 10:03 Dose: 40 mg Methadone HCl (Methadone) 20 mg PO DAILY [facility] Last Admin: 02/15/18 10:04 Dose: 20 mg Metoclopramide HCl (Reglan) 5 mg IVP Q8H [facility] Last Admin: 02/15/18 14:02 Dose: 5 mg Multivitamins (Hexavitamin) 1 tab PO DAILY [facility] Last Admin: 02/15/18 10:04 Dose: 1 tab Thiamine HCl (Vitamin B1 Tab) 100 mg PO DAILY [facility] Last Admin: 02/15/18 10:04 Dose: 100 mg Trazodone HCl (Desyrel) 50 mg PO HS PRN PRN Reason: Insomnia Last Admin: 02/14/18 21:48 Dose: 50 mg - Labs Labs: 02/15/18 06:29 02/15/18 06:29 PT 14.7 SECONDS (9.7-12.2) H 02/13/18 09:01 INR 1.3 02/13/18 09:01 APTT 36 SECONDS (21-34) H 02/13/18 09:01 - Head Exam Head Exam: ATRAUMATIC - Eye Exam Eye Exam: Normal appearance - ENT Exam ENT Exam: Mucous Membranes Dry - Respiratory Exam Respiratory Exam: NORMAL BREATHING PATTERN - Cardiovascular Exam Cardiovascular Exam: +S1, +S2 - GI/Abdominal Exam GI & Abdominal Exam: Normal Bowel Sounds Assessment and Plan (1) Pancytopenia Assessment & Plan: some improvement in cytopenias but not total resolution likely liver cirrhosis, noted splenomegaly with likely splenic sequestration borderline iron stores on IV iron and GI w/u in progress Status: Acute
--- NOTE | 2018-02-15 20:31 | CP.PCM.PN ---
Subjective - Date & Time of Evaluation Date of Evaluation: 02/15/18 Time of Evaluation: 19:00 - Subjective Subjective: Appears comfortable, s/p EGD Objective - Vital Signs/Intake and Output Vital Signs (last 24 hours): Temp Pulse Resp BP Pulse Ox 97.7 F 88 20 98/60 L 96 02/15/18 15:49 02/15/18 15:49 02/15/18 15:49 02/15/18 15:49 02/15/18 15:49 Intake and Output: 02/15/18 02/16/18 18:59 06:59 Intake Total 150 Balance 150 - Medications Medications: Current Medications Acetaminophen (Tylenol 325mg Tab) 650 mg PO Q6 PRN PRN Reason: fever Last Admin: 02/08/18 13:45 Dose: 650 mg Clonidine HCl (Catapres) 0.1 mg PO Q4H PRN PRN Reason: Symptoms of alcohol withdrawl Last Admin: 02/15/18 10:03 Dose: 0.1 mg Folic Acid (Folic Acid) 1 mg PO DAILY [facility] Last Admin: 02/15/18 10:04 Dose: 1 mg Ferric Sodium Gluconate Complex 125 mg/ Sodium Chloride 110 mls @ 105 mls/hr IVPB DAILY [facility] Stop: 02/17/18 10:31 Last Admin: 02/15/18 10:22 Dose: 105 mls/hr Lactulose (Enulose) 20 gm PO HS [facility] Lactulose (Enulose) 20 gm PO BID [facility] Last Admin: 02/15/18 18:02 Dose: 20 gm Lorazepam (Ativan) 1 mg IVP Q4H PRN PRN Reason: Symptoms of alcohol withdrawl Last Admin: 02/14/18 20:48 Dose: 1 mg Methadone HCl (Methadose) 40 mg PO DAILY [facility] Last Admin: 02/15/18 10:03 Dose: 40 mg Methadone HCl (Methadone) 20 mg PO DAILY [facility] Last Admin: 02/15/18 10:04 Dose: 20 mg Metoclopramide HCl (Reglan) 5 mg IVP Q8H [facility] Last Admin: 02/15/18 14:02 Dose: 5 mg Multivitamins (Hexavitamin) 1 tab PO DAILY [facility] Last Admin: 02/15/18 10:04 Dose: 1 tab Thiamine HCl (Vitamin B1 Tab) 100 mg PO DAILY [facility] Last Admin: 02/15/18 10:04 Dose: 100 mg Trazodone HCl (Desyrel) 50 mg PO HS PRN PRN Reason: Insomnia Last Admin: 02/14/18 21:48 Dose: 50 mg - Labs Labs: 02/15/18 06:29 02/15/18 06:29 PT 14.7 SECONDS (9.7-12.2) H 02/13/18 09:01 INR 1.3 02/13/18 09:01 APTT 36 SECONDS (21-34) H 02/13/18 09:01 - Head Exam Head Exam: ATRAUMATIC - Eye Exam Eye Exam: Normal appearance - ENT Exam ENT Exam: Mucous Membranes Dry - Respiratory Exam Respiratory Exam: NORMAL BREATHING PATTERN - Cardiovascular Exam Cardiovascular Exam: +S1, +S2 - GI/Abdominal Exam GI & Abdominal Exam: Normal Bowel Sounds Assessment and Plan (1) Pancytopenia Assessment & Plan: some improvement in cytopenias but not total resolution likely liver cirrhosis, noted splenomegaly with likely splenic sequestration borderline iron stores on IV iron and GI w/u in progress Status: Acute
--- NOTE | 2018-02-16 00:10 | PN ---
DATE: 02/15/2018 SUBJECTIVE: The patient was seen and examined in [facility]. The patient is drowsy. Offers no new complaints. PHYSICAL EXAMINATION: GENERAL: Middle aged male, lying in bed, in no acute distress. VITAL SIGNS: Blood pressure 108/71, pulse 63, respirations 14, temperature 97.2 degrees Fahrenheit, O2 saturation is 96% on 2 L nasal cannula. HEENT: Pupils equal, round, and reacting to light and accommodation. Extraocular muscles intact. Positive icterus. Positive pallor. No oral thrush. No pharyngeal congestion. NECK: Supple. No JVD. LUNGS: Bilateral vesicular breath sounds. No wheezing. No rhonchi. CVS: S1 and S2 present, regular. ABDOMEN: Soft, nontender. Bowel sounds present. No guarding. No rigidity. No rebound tenderness noted. FISH ROE PROCESSOR: Drowsy, arousable status post EGD. Moving all the extremities. EXTREMITIES: No edema. Palpable peripheral pulses. MEDICATIONS: Tylenol 650 mg as needed, Catapres 0.1 mg p.o. every 4 hours p.r.n, ferric gluconate 125 mg IV daily, folic acid 1 mg daily, lactulose 20 gm p.o. b.i.d., a day, Ativan 1 mg IV push every 4 hours p.r.n., methadone 60 mg daily, Reglan 5 mg IV push every 8 hours, multivitamin 1 tab daily, thiamine 100 mg daily, trazodone 50 mg p.o. at bedtime. LABORATORY DATA: Labs from this morning; WBC 2.3, hemoglobin 8.3, hematocrit 25.7, platelets 40. Sodium 136, potassium 4.1, chloride 106, bicarb 20, BUN 15, creatinine 0.8, glucose 114, calcium 8.6, phosphorus 3.7, magnesium 1.7. Total bilirubin 4.1. AST 87, ALT 45, alkaline phosphatase 98. Ammonia 73. Total protein 6.7, albumin 2.8. ASSESSMENT AND PLAN: Middle aged male with history of hypertension, ethanol abuse, admitted for intoxication withdrawal, pancytopenia, alcohol hepatitis, hepatitis C positive, electrolyte imbalance, status post altered mental status, electrolyte disorder, status post esophagogastroduodenoscopy consistent with gastritis, gastroparesis, small hiatal hernia, no varices. H and H remain stable after 2 units of packed red blood cells transfusion and received 3 units of platelet transfusion. We will continue with Ativan as needed for anxiety. Continue with thiamine, folate, multivitamin. We will give lactulose 20 gm p.o. b.i.d. Repeat ammonia level in the morning. We will follow up with GI. If cleared by GI, will plan discharging the patient home in a.m. Request physical therapy evaluation. Jenifer Doty MD
[2018-02-16 08:02] LABS: HEMOGLOBIN 8.8 g/dL (12.0-18.0); MEAN CELL VOLUME 96.7 fL (80.0-94.0); MEAN CORPUSCULAR HEMOGLOBIN 31.8 pg (27.0-31.0); MEAN CORPUSCULAR HGB CONC 32.9 g/dL (33.0-37.0); MEAN PLATELET VOLUME 11.8 fL (7.2-11.7); RBC 2.77 Mil/uL (4.40-5.90); RED CELL DISTRIBUTION WIDTH 20.5 % (11.5-14.5); WHITE BLOOD COUNT 2.5 K/uL (4.8-10.8)
[2018-02-16 08:07] LABS: ALB/GLOB RATIO 0.8 (1.0-2.1); ALT/SGPT 40 U/L (21-72); AST/SGOT 86 U/L (17-59); BLOOD UREA NITROGEN 12 mg/dL (9-20); CALCIUM 8.5 mg/dl (8.6-10.4); GFR NON-AFRICAN AMERICAN > 60
[2018-02-16] MEDS: Multiple Vitamins Tab PO SCH (09:33)
[2018-02-16] MEDS: Methadone 40 mg Tab PO SCH (09:33)
[2018-02-16 09:40] LABS: LYMPH # 0.7 K/uL (1.0-4.3); MONO # 0.3 K/uL (0.0-0.8); NEUT # 1.5 K/uL (1.8-7.0)
[2018-02-16] MEDS: Ferric Sodium Gluconat Complex 125 MG in Sodium Chloride 0.9% 100 ML IVPB SCH (09:54)
--- NOTE | 2018-02-16 11:37 | CP.PCM.PN ---
Subjective - Date & Time of Evaluation Date of Evaluation: 02/16/18 Time of Evaluation: 11:37 - Subjective Subjective: Discharge summary dictated #[id number] Objective - Vital Signs/Intake and Output Vital Signs (last 24 hours): Temp Pulse Resp BP Pulse Ox 98.5 F 69 20 115/73 94 L 02/16/18 07:00 02/16/18 07:00 02/16/18 07:00 02/16/18 07:00 02/16/18 07:00 Intake and Output: 02/16/18 02/16/18 06:59 18:59 Intake Total 240 Output Total 2 Balance 238 - Medications Medications: Current Medications Acetaminophen (Tylenol 325mg Tab) 650 mg PO Q6 PRN PRN Reason: fever Last Admin: 02/08/18 13:45 Dose: 650 mg Clonidine HCl (Catapres) 0.1 mg PO Q4H PRN PRN Reason: Symptoms of alcohol withdrawl Last Admin: 02/15/18 10:03 Dose: 0.1 mg Folic Acid (Folic Acid) 1 mg PO DAILY [facility] Last Admin: 02/16/18 09:33 Dose: 1 mg Ferric Sodium Gluconate Complex 125 mg/ Sodium Chloride 110 mls @ 105 mls/hr IVPB DAILY [facility] Stop: 02/17/18 10:31 Last Admin: 02/16/18 09:54 Dose: 105 mls/hr Lactulose (Enulose) 20 gm PO HS [facility] Last Admin: 02/15/18 21:10 Dose: 20 gm Lactulose (Enulose) 20 gm PO BID [facility] Last Admin: 02/16/18 09:33 Dose: 20 gm Lorazepam (Ativan) 1 mg IVP Q4H PRN PRN Reason: Symptoms of alcohol withdrawl Last Admin: 02/16/18 09:54 Dose: 1 mg Methadone HCl (Methadose) 40 mg PO DAILY [facility] Last Admin: 02/16/18 09:33 Dose: 40 mg Methadone HCl (Methadone) 20 mg PO DAILY [facility] Last Admin: 02/16/18 09:33 Dose: 20 mg Metoclopramide HCl (Reglan) 5 mg IVP Q8H [facility] Last Admin: 02/16/18 04:57 Dose: 5 mg Multivitamins (Hexavitamin) 1 tab PO DAILY [facility] Last Admin: 02/16/18 09:33 Dose: 1 tab Thiamine HCl (Vitamin B1 Tab) 100 mg PO DAILY [facility] Last Admin: 02/16/18 09:33 Dose: 100 mg Trazodone HCl (Desyrel) 50 mg PO HS PRN PRN Reason: Insomnia Last Admin: 02/15/18 21:10 Dose: 50 mg - Labs Labs: 02/16/18 07:51 02/16/18 07:51 PT 14.7 SECONDS (9.7-12.2) H 02/13/18 09:01 INR 1.3 02/13/18 09:01 APTT 36 SECONDS (21-34) H 02/13/18 09:01
[2018-02-16 16:21] VITALS: BP 127/84; PULSE 69; TEMP 98.1; O2SAT 97
--- NOTE | 2018-02-16 21:05 | PN ---
DATE: 02/16/2018 LOCATION: 558, bed A. SUBJECTIVE: This is a 53 years old male and examined in rounds in the presence of the staff without significant clinical changes or reported active bleeding. The patient is post upper endoscopy. No chest pain, palpitation or reported significant shortness of breath. The patient tolerated oral intake well without reported post abdominal distention with less upper extremity tremors. LABORATORY DATA: Today's lab result showed pancytopenia again with white blood cells 2.5, hemoglobin 8.8, hematocrit 26.8 with thrombocytes of 47, CO2 content 19 indicative of metabolic acidosis, calcium 8.5. Total bilirubin is 3.2. AST improved to 86 with albumin 3 but ammonia level reported to be normal. PHYSICAL EXAMINATION: GENERAL: A 53 years old male. VITAL SIGNS: Afebrile. Pulse rate of 70, blood pressure 120/74, with respiratory rate 20-22. HEENT: Showed pale, dry mucous membrane, bilateral icteric sclerae. LUNGS: Few scattered crepitations, decreased air entry at bases. HEART: Positive S1 and S2. ABDOMEN: Soft, bowel sounds are present with mild generalized tenderness. No mass or organomegaly. No rebound tenderness or guarding. IMPRESSION: 1. Alcoholism with alcoholic liver disease. 2. Jaundice, abnormal liver function tests secondary to above. 3. Alcohol-induced pancreatitis. 4. Hepatic encephalopathy, improving. 5. Known history of peptic ulcer disease. 6. Known history of hypertension. 7. Pancytopenia secondary to above. SUGGESTIONS: 1. Continue current management. 2. Adjust oral intake. 3. The patient will need colonoscopy only when he is more stable clinically. 4. Platelets transfusion as needed. 5. Further recommendation to follow. Kimberley Clark MD
--- NOTE | 2018-02-17 21:52 | DS ---
DISCHARGE DIAGNOSES: Ethyl alcohol abuse, status post alcohol intoxication, status post withdrawal, cirrhosis of the liver, hepatic encephalopathy, acute alcoholic hepatitis, electrolyte imbalance, pancytopenia, status post multiple packed red blood cells and platelet transfusions, status post esophagogastroduodenoscopy consistent with gastritis, and history of hypertension. HISTORY OF PRESENT ILLNESS: Mr. Garcia is a 53-year-old male with past medical history of hypertension, EtOH abuse. Admitted for EtOH intoxication, requesting for detox, found to be having multiple electrolyte abnormalities and pancytopenia. The patient is admitted to medical floor instead of detox floor. Today, the patient is felling better. Denies any headache or dizziness. Denies any chest pain, shortness of breath, or wheezing. Denies any nausea, vomiting, abdominal pain, diarrhea, or constipation. Denies any urinary complaints. Denies any leg pains or leg cramps. All other system reviewed and were found to be negative. PHYSICAL EXAMINATION: GENERAL: Middle-aged male, lying in bed, in no acute distress. VITAL SIGNS: Blood pressure 115/73, pulse 69, respirations 20, temperature 98.5 degrees Fahrenheit, O2 saturation 94% on room air. HEENT: Pupils equal, round, and reacting to light and accommodation. Extraocular muscles intact. No icterus. Positive pallor. No oral thrush. No pharyngeal congestion. NECK: Supple. No JVD. LUNGS: Bilateral vesicular breath sounds. No wheezing. No rhonchi. CARDIOVASCULAR SYSTEM: S1 and S2 are present, regular. ABDOMEN: Soft and nontender. Bowel sounds present. No guarding. No rigidity. No rebound tenderness noted. CENTRAL NERVOUS SYSTEM: Alert, awake, and oriented x2. No focal deficits noted. EXTREMITIES: No edema. Palpable peripheral pulses. LABORATORY DATA: Labs done from this morning: WBC 2.5, hemoglobin 8.8, hematocrit 26.8, and platelets 47. Sodium 136, potassium 4.1, chloride 106, bicarb 19, BUN 12, creatinine 0.8, glucose 107, and calcium 8.5. Total bilirubin 3.2, AST 86, ALT 40, and alkaline phosphate 92. Ammonia is 19. Total protein is 6.5, albumin is 3. EF is 55% to 60%, diastolic dysfunction. Chest x-ray was negative for any infiltrate. Abdominal ultrasound: Echogenic liver may be seen in setting of hepatic parenchymal disease, fatty infiltration, splenomegaly. HOSPITAL COURSE: The patient was admitted to telemetry for EtOH intoxication, abnormal liver function tests, pancytopenia. The patient was evaluated by Psych. The patient was started on tapering doses of Ativan and as needed dose of Ativan. The patient received two units of platelets for severe thrombocytopenia and two units of PRBC. The patient underwent EGD after the patient was stabilized, consistent with gastritis. The patient was evaluated by Hematology. The patient received IV Ferrlecit. The patient is cleared by GI and Psychiatry as the patient is otherwise hemodynamically stable. The patient is being discharged. Advised the patient to follow up with PMD, GI, and Psychiatry as outpatient for AA program. DISCHARGE MEDICATIONS: Multivitamin one tablet daily, folic acid 1 mg daily, thiamine 100 mg daily, labetalol 100 mg p.o. b.i.d., lactulose 20 g daily, Protonix 40 mg daily. CONDITION UPON DISCHARGE: The patient is awake, and oriented x3 and hemodynamically stable. DISCHARGE INSTRUCTIONS: Follow up with PMD. Follow up with GI. Follow up with Psychiatry. real estate services administrator to refer to AA program. Follow up with Psychiatry and Hematology. DIET: Low sodium, low cholesterol, 1800-calorie ADA diet. ACTIVITY: As tolerated. DISCHARGE MEDICATIONS: Thiamine 100 mg daily, multivitamin one tablet daily, folic acid 1 mg daily, and Protonix 40 mg daily. Please also refer to discharge instruction sheet given at the time of discharge. Jenifer Doty MD
== END 2018-02-16 20:27 | disposition home or self-care (01) | DRG 895 ==
LOC: C.ER 11:01 → C.9E 13:26 → C.5S 15:31
PROVIDERS: ADMIT Internal Medicine; ATTEND Internal Medicine
PROC: HZ2ZZZZ Detoxification Services for Substance Abuse Treatment (ICD-10-PCS; principal; 2018-02-07)
PROC: HZ52ZZZ Individual Psychotherapy for Substance Abuse Treatment, Cognitive-Behavioral (ICD-10-PCS; 2018-02-07)
PROC: HZ59ZZZ Individual Psychotherapy for Substance Abuse Treatment, Supportive (ICD-10-PCS; 2018-02-07)
PROC: HZ56ZZZ Individual Psychotherapy for Substance Abuse Treatment, Psychoeducation (ICD-10-PCS; 2018-02-07)
PROC: HZ42ZZZ Group Counseling for Substance Abuse Treatment, Cognitive-Behavioral (ICD-10-PCS; 2018-02-07)
PROC: HZ46ZZZ Group Counseling for Substance Abuse Treatment, Psychoeducation (ICD-10-PCS; 2018-02-07)
PROC: GZHZZZZ Group Psychotherapy (ICD-10-PCS; 2018-02-07)
PROC: GZ58ZZZ Individual Psychotherapy, Cognitive-Behavioral (ICD-10-PCS; 2018-02-07)
PROC: GZ56ZZZ Individual Psychotherapy, Supportive (ICD-10-PCS; 2018-02-07)
PROC: 30233N1 Transfusion of Nonautologous Red Blood Cells into Peripheral Vein, Percutaneous Approach (ICD-10-PCS; 2018-02-08)
PROC: 30233R1 Transfusion of Nonautologous Platelets into Peripheral Vein, Percutaneous Approach (ICD-10-PCS; 2018-02-09)
DX: F10.230 Alcohol dependence with withdrawal, uncomplicated (principal); D61.818 Other pancytopenia; F11.20 Opioid dependence, uncomplicated; F32.1 Major depressive disorder, single episode, moderate; F10.220 Alcohol dependence with intoxication, uncomplicated; K70.31 Alcoholic cirrhosis of liver with ascites; Y90.8 Blood alcohol level of 240 mg/100 ml or more; F10.27 Alcohol dependence with alcohol-induced persisting dementia; B19.20 Unspecified viral hepatitis C without hepatic coma; R19.5 Other fecal abnormalities; R97.8 Other abnormal tumor markers; F10.231 Alcohol dependence with withdrawal delirium

== ENCOUNTER 2018-05-04 13:24 | Inpatient (IN) | payer OTHER ==
[2018-05-04 13:25] VITALS: BMI 25.9
--- NOTE | 2018-05-04 13:57 | C.PDOC ---
History Of Present Illness 53 y/o male w/PMHx of IVDA and ETOH abuse, presents to the ER requesting detox from ETOH and methadone. Patient states that his last drink was in the ER waiting room. Patient reports that he is in a methadone program for the past 5 years. He has history of IVDA prior to starting the program. He notes that he lost his and children. Denies having suicidal ideation, homicidal ideation, headache, fever, chills, nausea, and vomiting. Time Seen by Provider: 05/04/18 13:31 Chief Complaint (Nursing): Substance Abuse History Per: Patient History/Exam Limitations: no limitations Past Medical History Reviewed: Historical Data, Nursing Documentation, Vital Signs Vital Signs: Last Vital Signs Temp 98.4 F 05/04/18 13:33 Pulse 101 H 05/04/18 13:33 Resp 19 05/04/18 13:33 BP 150/92 H 05/04/18 13:33 Pulse Ox 97 05/04/18 13:33 - Medical History PMH: HTN, Pneumonia Denies: Anxiety, Bipolar Disorder, Depression, Diabetes, Hepatitis, HIV, Paranoia, Post Traumatic Stress Disorder, Chronic Kidney Disease, Schizophrenia, Seizures, Sexually Transmitted Disease Surgical History: Denies: Appendectomy - [facility] Procedures DETOXIFICATION SERVICES FOR SUBSTANCE ABUSE TREATMENT (02/07/18) GROUP FOOD PRODUCTION SUPERVISOR FOR SUBSTANCE ABUSE TREATMENT, PSYCHOEDUCATION (02/07/18) GROUP FOOD PRODUCTION SUPERVISOR FOR SUBSTANCE ABUSE, COGNITIVE BEHAVIORAL (02/07/18) GROUP PSYCHOTHERAPY (02/07/18) INDIV PSYCHOTHERAPY FOR SUBSTANCE ABUSE TREATMENT, SUPPORT (02/07/18) INDIV PSYCHOTHERAPY FOR SUBSTANCE ABUSE, COGNITIV BEHAVIORAL (02/07/18) INDIV PSYCHOTHERAPY FOR SUBSTANCE ABUSE, PSYCHOEDUCATION (02/07/18) INDIVIDUAL PSYCHOTHERAPY, COGNITIVE-BEHAVIORAL (02/07/18) INDIVIDUAL PSYCHOTHERAPY, SUPPORTIVE (02/07/18) TRANSFUSE NONAUT PLATELETS IN PERIPH VEIN, PERC (02/07/18) TRANSFUSE NONAUT RED BLOOD CELLS IN PERIPH VEIN, PERC (02/07/18) Family History: States: No Known Family Hx - Social History Hx Tobacco Use: No Hx Alcohol Use: Yes Hx Substance Use: Yes - Immunization History Hx Tetanus Toxoid Vaccination: No Hx Influenza Vaccination: No Hx Pneumococcal Vaccination: No Review Of Systems Except As Marked, All Systems Reviewed And Found Negative. Constitutional: Negative for: Fever, Chills Gastrointestinal: Negative for: Nausea, Vomiting Psych: Negative for: Suicidal ideation Physical Exam - Physical Exam Appears: Other (sad, tearful, well older than stated age) Skin: Normal Color, Warm, Dry, Other (venous stasis changes to bilateral lower extremities) Head: Atraumatic, Normacephalic Eye(s): bilateral: Other (sunken orbits) Nose: Normal Oral Mucosa: Moist Neck: Supple Chest: Symmetrical Cardiovascular: Rhythm Regular Respiratory: Rales (bibasilar rales), No Rhonchi, No Wheezing Gastrointestinal/Abdominal: Soft, No Tenderness, Distention (mild distention), No Guarding, No Rebound, Other (tympanic to percussion) Extremity: Normal ROM, Other (muscle wasting) Neurological/Psych: Oriented x3, Normal Speech ED Course And Treatment - Laboratory Results Result Diagrams: 05/04/18 14:13 05/04/18 14:13 O2 Sat by Pulse Oximetry: 97 (RA) Pulse Ox Interpretation: Normal - CT Scan/US US Other Rad Studies (CT/US): Read By Radiologist, Radiology Report Reviewed CT/US Interpretation: HISTORY: pancytopenia, possible splenomegaly. COMPARISON: None available. TECHNIQUE: Sonographic evaluation of the abdomen. FINDINGS: LIVER: Measures 17.7 cm in sagittal dimension. Echogenic liver may be seen in setting of hepatic parenchymal disease or fatty infiltration. No focal hepatic mass identified. The main portal vein appears patent with normal directional flow. No intrahepatic bile duct dilatation. GALLBLADDER: No gallstones. No gallbladder wall thickening. Negative sonographic Cui's sign as assessed by the bpm architect. COMMON BILE DUCT: Measures 6 mm. PANCREAS: Not well visualized. RIGHT KIDNEY: Measures 11.1 x 5.6 x 6.0 cm. No obstructing calculus or hydronephrosis identified. LEFT KIDNEY: Measures 12.8 x 4.5 x 5.5 cm. No obstructing calculus or hydronephrosis identified. SPLEEN: Measures approximately 15.3 cm. AORTA: Not well-visualized. IVC: Not well- visualized. OTHER FINDINGS: None. IMPRESSION: Nodular hepatic contour may be seen in the setting of cirrhosis. Echogenic liver may be seen in setting of hepatic parenchymal disease or fatty infiltration. Splenomegaly. Medical Decision Making Medical Decision Making: Plan: --Labs --UA --Crisis Eval. Updates: 14:13 Patient has low platelet count, he has some pancytopenia. Case discussed with . advised for patient to have US. 15:17 Based on US and pancytopenia mostly like due to chronic alcoholism, patient has been admitted under the service of . Disposition Discussed With Dr.: Tim Rider Jr. Counseled Patient/Family Regarding: Studies Performed, Diagnosis, Need For Followup - Disposition Disposition: HOSPITALIZED Disposition Time: 17:39 Condition: GUARDED - Clinical Impression Clinical Impression: Alcohol abuse, Pancytopenia - Scribe Statement The provider has reviewed the documentation as recorded by the Janyibe Sae Rahman Provider Attestation: All medical record entries made by the Janyibe were at my direction and personally dictated by me. I have reviewed the chart and agree that the record accurately reflects my personal performance of the history, physical exam, m edical decision making, and the department course for this patient. I have also personally directed, reviewed, and agree with the discharge instructions and disposition. Decision To Admit - Pt Status Changed To: Hospital Disposition Of: Inpatient - Admit Certification Admit to Inpatient:: After my assessment, the patient will require hospitalization for at least two midnights. This is because of the severity of symptoms shown, intensity of services needed, and/or the medical risk in this patient being treated as an outpatient. - InPatient: Physician Admission Certification: I certify that this patient requires 2 or more midnights of care for the following reason:: patient needs inpatient detox but will be admitted to medicine service first for mangement of pancytopenia - . Bed Request Type: Regular Patient Diagnosis: Alcohol abuse, Pancytopenia
[2018-05-04 14:17] LABS: BASO % 0.5 % (0.0-2.0); EOS % 0.4 % (0.0-4.0); LYMPH # 1.1 K/uL (1.0-4.3); LYMPH % 38.3 % (20.0-40.0); MEAN CORPUSCULAR HEMOGLOBIN 30.9 pg (27.0-31.0); MEAN CORPUSCULAR HGB CONC 33.3 g/dL (33.0-37.0); MEAN PLATELET VOLUME 9.3 fL (7.2-11.7); MONO # 0.3 K/uL (0.0-0.8); MONO % 10.1 % (0.0-10.0); NEUT # 1.5 K/uL (1.8-7.0); NEUT % 50.7 % (50.0-75.0); NRBC % 0.2 % (0.0-2.0); RBC 3.48 Mil/uL (4.40-5.90); RED CELL DISTRIBUTION WIDTH 19.4 % (11.5-14.5); WHITE BLOOD COUNT 2.9 K/uL (4.8-10.8)
[2018-05-04 14:22] LABS: SQUAMOUS EPITHIAL < 1 /hpf (0-5); URINE BILIRUBIN NEGATIVE (NEGATIVE); URINE BLOOD 2+ (NEGATIVE); URINE CLARITY Clear (Clear); URINE COLOR Yellow (YELLOW); URINE GLUCOSE (UA) NORMAL (Normal); URINE LEUKOCYTE ESTERASE NEG Leu/uL (Negative); URINE PROTEIN 2+ mg/dL (NEGATIVE)
[2018-05-04 14:25] LABS: HEMOGLOBIN 10.8 g/dL (12.0-18.0)
[2018-05-04 14:31] LABS: ALB/GLOB RATIO 0.9 (1.0-2.1); ALBUMIN 3.5 g/dL (3.5-5.0); ALT/SGPT 28 U/L (21-72); AST/SGOT 103 U/L (17-59); BLOOD UREA NITROGEN 10 mg/dL (9-20); CALCIUM 7.6 mg/dl (8.6-10.4); GFR NON-AFRICAN AMERICAN > 60
[2018-05-04 14:51] LABS: BARBITURATES, UR NEGATIVE (NEGATIVE); BENZODIAZEPINES, UR NEGATIVE (NEGATIVE); OPIATES, UR NEGATIVE (NEGATIVE); PHENCYCLIDINE, UR NEGATIVE (NEGATIVE)
--- NOTE | 2018-05-04 17:01 | US ---
HISTORY: pancytopenia, possible splenomegaly COMPARISON: None available. TECHNIQUE: Sonographic evaluation of the abdomen. FINDINGS: LIVER: Measures 17.7 cm in sagittal dimension. Echogenic liver may be seen in setting of hepatic parenchymal disease or fatty infiltration. No focal hepatic mass identified. The main portal vein appears patent with normal directional flow. No intrahepatic bile duct dilatation. GALLBLADDER: No gallstones. No gallbladder wall thickening. Negative sonographic Cui's sign as assessed by the sales clerk. COMMON BILE DUCT: Measures 6 mm. PANCREAS: Not well visualized. RIGHT KIDNEY: Measures 11.1 x 5.6 x 6.0 cm. No obstructing calculus or hydronephrosis identified. LEFT KIDNEY: Measures 12.8 x 4.5 x 5.5 cm. No obstructing calculus or hydronephrosis identified. SPLEEN: Measures approximately 15.3 cm. AORTA: Not well-visualized. IVC: Not well-visualized. OTHER FINDINGS: None. IMPRESSION: Nodular hepatic contour may be seen in the setting of cirrhosis. Echogenic liver may be seen in setting of hepatic parenchymal disease or fatty infiltration. Splenomegaly.
[2018-05-04] MEDS: Folic Acid 1 MG, Thiamine 100 MG, Multivitamin (MVI) 10 ML in Dextrose 5% In Water 1,00... IV SCH (21:27)
[2018-05-04 21:36] LABS: INR 1.3; PROTHROMBIN TIME 14.7 SECONDS (9.7-12.2)
--- NOTE | 2018-05-05 01:51 | CP.PCM.HP ---
History of Present Illness - History of Present Illness History of Present Illness: note for Dr Rider service cc: coming for detox Patient is a 53 year old male with pmhx of alcohol and IV drug use that came to ED seeking detox. Patient stated that the last drink he had was sitting in the ER. Patient has been drinking all the time, about 3 pints of vodka in the am and 3 pints at night time for the past 4 months. Patient had stopped drinking for 7 months previous to restarting again. Patient states he does not use IV drugs currently, having quitted 7 years ago and is currently on methadone treatment at a local clinic. Patient admits to noticing his right leg getting swollen in the past 2 days, denies any trauma or any lacerations or using needles in the extremity. Patient has no other symptoms. Denies fevers, chills, chest pain, shortness of breath, n/v/d/c, no weight loss, no sick contacts, no apetitie loss, no urinary symptoms. PMD: does not remember All: NKDA Pmhx: as stated in HPI Shx: unspecified left thoracotomy ("swollen heart") Fmhx: Mother and sister (DM) Sochx: as stated in HPI. Lives in apartment by himself. Meds: denies Present on Admission - Present on Admission Any Indicators Present on Admission: No Review of Systems - Review of Systems All systems: reviewed and no additional remarkable complaints except Review of Systems: as stated in HPI Past Patient History - Infectious Disease Hx of Infectious Diseases: None - Past Medical History & Family History Past Medical History?: No - Past Social History Smoking Status: Never Smoked - CARDIAC Hx Cardiac Disorders: Yes Hx Hypertension: Yes - PULMONARY Hx Respiratory Disorders: Yes Hx Pneumonia: Yes - NEUROLOGICAL Hx Neurological Disorder: No Hx Seizures: No - HEENT Hx HEENT Problems: No - RENAL Hx Chronic Kidney Disease: No - ENDOCRINE/METABOLIC Hx Endocrine Disorders: No - HEMATOLOGICAL/ONCOLOGICAL Hx Blood Disorders: No Hx Human Immunodeficiency Virus (HIV): No - INTEGUMENTARY Hx Dermatological Problems: No - MUSCULOSKELETAL/RHEUMATOLOGICAL Hx Musculoskeletal Disorders: No Hx Falls: No (Denied) - GASTROINTESTINAL Hx Gastrointestinal Disorders: No - GENITOURINARY/GYNECOLOGICAL Hx Genitourinary Disorders: No Hx Sexually Transmitted Disorders: No - PSYCHIATRIC Hx Anxiety: No Hx Bipolar Disorder: No Hx Depression: No Hx Paranoia: No Hx Post Traumatic Stress Disorder: No Hx Schizophrenia: No Hx Substance Use: Yes - SURGICAL HISTORY Hx Surgeries: Yes Hx Appendectomy: No Hx Herniorrhaphy: Yes - ANESTHESIA Hx Anesthesia: Yes Hx Anesthesia Reactions: No Hx Malignant Hyperthermia: No Has any member of the family had a problem w/ anesthesia?: No Meds Allergies/Adverse Reactions: Allergies Allergy/AdvReac Type Severity Reaction Status Date / Time No Known Allergies Allergy Verified 05/04/18 13:35 Physical Exam - Constitutional Appears: Non-toxic, No Acute Distress - Head Exam Head Exam: ATRAUMATIC, NORMAL INSPECTION, NORMOCEPHALIC - Eye Exam Eye Exam: EOMI, Normal appearance, PERRL Pupil Exam: NORMAL ACCOMODATION - ENT Exam ENT Exam: Mucous Membranes Moist, Normal Exam, Normal Oropharynx Additional comments: edentolous - Neck Exam Neck exam: Positive for: Full Rom, Normal Inspection. Negative for: Lymphadenopathy, Tenderness, Thyromegaly - Respiratory Exam Respiratory Exam: Clear to Auscultation Bilateral, NORMAL BREATHING PATTERN. absent: Rales, Rhonchi, Wheezes, Respiratory Distress - Cardiovascular Exam Cardiovascular Exam: REGULAR RHYTHM, +S1, +S2 - GI/Abdominal Exam GI & Abdominal Exam: Normal Bowel Sounds, Soft - Rectal Exam Rectal Exam: NORMAL INSPECTION - Extremities Exam Extremities exam: Positive for: full ROM, pedal pulses present. Negative for: tenderness Additional comments: nonpitting edema on right lower extremity, mild erythema noted on right LE, warm to touch, no cuts, punctures or abrasions noted, no abscess or purulent material. - Back Exam Back exam: FULL ROM, NORMAL INSPECTION - Neurological Exam Neurological exam: Alert, CN II-XII Intact, Oriented x3 Additional comments: upper extremities tremors noticed b/l - Psychiatric Exam Psychiatric exam: Normal Affect, Normal Mood - Skin Skin Exam: Dry, Intact, Normal Color, Warm Results - Vital Signs Recent Vital Signs: Last Vital Signs Temp 98.3 F 05/05/18 00:05 Pulse 99 H 05/05/18 00:05 Resp 18 05/05/18 00:05 BP 114/54 L 05/05/18 00:05 Pulse Ox 98 05/05/18 00:05 - Labs Result Diagrams: 05/04/18 14:13 05/04/18 14:13 Labs: Laboratory Results - last 24 hr 05/04/18 05/04/18 05/04/18 14:13 14:13 14:13 WBC 2.9 L RBC 3.48 L Hgb 10.8 L D Hct 32.4 L MCV 93.0 D MCH 30.9 MCHC 33.3 RDW 19.4 H Plt Count 17 L* D MPV 9.3 Neut % (Auto) 50.7 Lymph % (Auto) 38.3 [place] % (Auto) 10.1 H Eos % (Auto) 0.4 Baso % (Auto) 0.5 Neut # (Auto) 1.5 L Lymph # (Auto) 1.1 [place] # (Auto) 0.3 Eos # (Auto) 0.0 Baso # (Auto) 0.0 Differential Comment PT INR APTT Sodium 144 Potassium 3.7 Chloride 108 H Carbon Dioxide 25 Anion Gap 14 BUN 10 Creatinine 0.7 L Est GFR ( Amer) > 60 Est GFR (Non-Af Amer) > 60 POC Glucose (mg/dL) Random Glucose 115 H Calcium 7.6 L Phosphorus 3.6 Magnesium 1.5 L Total Bilirubin 1.2 AST 103 H ALT 28 Alkaline Phosphatase 109 Total Protein 7.5 Albumin 3.5 Globulin 4.1 H Albumin/Globulin Ratio 0.9 L Urine Color Yellow Urine Clarity Clear Urine pH 7.0 Ur Specific [place] 1.018 Urine Protein 2+ H Urine Glucose (UA) Normal Urine Ketones Negative Urine Blood 2+ H Urine Nitrate Negative Urine Bilirubin Negative Urine Urobilinogen 4.0 Ur Leukocyte Esterase Neg Urine RBC (Auto) 3 Ur Squamous Epith Cells < 1 Urine Opiates Screen Urine Methadone Screen Ur Barbiturates Screen Ur Phencyclidine Scrn Ur Amphetamines Screen U Benzodiazepines Scrn U Oth Cocaine Metabols U Cannabinoids Screen Alcohol, Quantitative 390 H 05/04/18 05/04/18 05/04/18 14:13 21:17 21:17 WBC RBC Hgb Hct MCV MCH MCHC RDW Plt Count MPV Neut % (Auto) Lymph % (Auto) [place] % (Auto) Eos % (Auto) Baso % (Auto) Neut # (Auto) Lymph # (Auto) [place] # (Auto) Eos # (Auto) Baso # (Auto) Differential Comment PT 14.7 H INR 1.3 APTT 38 H Sodium Potassium Chloride Carbon Dioxide Anion Gap BUN Creatinine Est GFR ( Amer) Est GFR (Non-Af Amer) POC Glucose (mg/dL) 103 Random Glucose Calcium Phosphorus Magnesium Total Bilirubin AST ALT Alkaline Phosphatase Total Protein Albumin Globulin Albumin/Globulin Ratio Urine Color Urine Clarity Urine pH Ur Specific [place] Urine Protein Urine Glucose (UA) Urine Ketones Urine Blood Urine Nitrate Urine Bilirubin Urine Urobilinogen Ur Leukocyte Esterase Urine RBC (Auto) Ur Squamous Epith Cells Urine Opiates Screen Negative Urine Methadone Screen Positive H Ur Barbiturates Screen Negative Ur Phencyclidine Scrn Negative Ur Amphetamines Screen Negative U Benzodiazepines Scrn Negative U Oth Cocaine Metabols Negative U Cannabinoids Screen Negative Alcohol, Quantitative Assessment & Plan - Assessment and Plan (Free Text) Plan: Pancytopenia likely 2/2 Bone marrow suppresion due to alcohol intoxication - Platelets ER: 17 - WBC: 7.9 - Hb 10.8, Hct 32.4 - abd/US nodular hepatic countour - cirrhosis, echogenic liver, seen in setting of hepatic parenchymal disease or fatty infiltrates. Splenomegaly - PT/PTT/INR - F/U - no blood transfusion at this time, continue to monitor - patient currently asymptomatic - am labs alcohol abuse - alcohol levels elevated - banana bag @ 75cc - Ativan 1mg x1 dose now - Ativan 1mg Q4hr PRN for anxiety/alcohol withdrawal - No IM or SC injections hx of heroin use - + Methadone on UDS - Psych consult - Dr King help is appreciated Prophylaxis - no DVT at this time - swollen legs - HHD diet 2gm NA Plan discussed with Dr Adry Osborne, DO PGY-1 - Date & Time Date: 05/04/18 Time: 19:30
[2018-05-05 07:23] LABS: BASO % 0.4 % (0.0-2.0); EOS % 0.1 % (0.0-4.0); HEMOGLOBIN 10.2 g/dL (12.0-18.0); LYMPH # 0.9 K/uL (1.0-4.3); MEAN CELL VOLUME 92.5 fL (80.0-94.0); MEAN CORPUSCULAR HEMOGLOBIN 31.3 pg (27.0-31.0); MEAN CORPUSCULAR HGB CONC 33.8 g/dL (33.0-37.0); MEAN PLATELET VOLUME 9.6 fL (7.2-11.7); MONO # 0.2 K/uL (0.0-0.8); MONO % 9.6 % (0.0-10.0); NEUT # 0.9 K/uL (1.8-7.0); NEUT % 45.9 % (50.0-75.0); NRBC % 0.2 % (0.0-2.0); RBC 3.27 Mil/uL (4.40-5.90); RED CELL DISTRIBUTION WIDTH 19.5 % (11.5-14.5)
[2018-05-05 07:35] LABS: ALB/GLOB RATIO 0.9 (1.0-2.1); ALBUMIN 3.3 g/dL (3.5-5.0); ALT/SGPT 24 U/L (21-72); AST/SGOT 88 U/L (17-59); BLOOD UREA NITROGEN 9 mg/dL (9-20); CALCIUM 7.5 mg/dl (8.6-10.4); GFR NON-AFRICAN AMERICAN > 60
[2018-05-05] MEDS: Sodium Chloride 0.9% 1,000 ML IV SCH ×2 (10:00→19:00)
[2018-05-05] MEDS: Multiple Vitamins Oral Solution PO SCH (11:00)
[2018-05-05] MEDS ORDERED: Methadone 40 mg Tab PO ONE (11:00)
--- NOTE | 2018-05-05 14:39 | CP.PCM.PN ---
Subjective - Date & Time of Evaluation Date of Evaluation: 05/05/18 Time of Evaluation: 14:36 - Subjective Subjective: PGY-1 Medicine Progress Note for Dr. Rider's service Patient seen and examined at bedside. Patient complains of nausea. Patient had severe tremulousness during interview. Patient denies fevers, chills, chest pa in, sob, constipation or diarrhea, and dysuria. Objective - Vital Signs/Intake and Output Vital Signs (last 24 hours): Temp Pulse Resp BP Pulse Ox 98.7 F 100 H 20 141/87 97 05/05/18 07:00 05/05/18 07:00 05/05/18 07:00 05/05/18 07:00 05/05/18 07:00 Intake and Output: 05/05/18 05/05/18 06:59 18:59 Intake Total 1340 Output Total 150 Balance 1340 -150 - Medications Medications: Current Medications Folic Acid 1 mg/ Thiamine HCl 100 mg/ Multivitamins/Vitamin C 10 ml/ Dextrose 1,011.2 mls @ 75 mls/hr IV Q24H [facility] Last Admin: 05/04/18 21:27 Dose: 75 mls/hr Sodium Chloride (Sodium Chloride 0.9%) 1,000 mls @ 100 mls/hr IV .Q10H [facility] Last Admin: 05/05/18 10:00 Dose: 100 mls/hr Influenza Virus Vaccine (Fluzone Quad [id number]) 60 mcg IM .ONCE ONE Stop: 05/06/18 10:01 Lorazepam (Ativan) 1 mg IVP Q6H [facility]; Taper Stop: 05/09/18 11:59 Last Admin: 05/05/18 12:49 Dose: 1 mg Methadone HCl (Methadose) 40 mg PO DAILY [facility] Methadone HCl (Methadone) 30 mg PO DAILY [facility] Methadone HCl (Methadone) 5 mg PO DAILY [facility] Multivitamins/Vitamin C (Multi-Delyn Liquid) 5 ml PO DAILY [facility] Last Admin: 05/05/18 11:00 Dose: 5 ml Ondansetron HCl (Zofran Inj) 4 mg IVP Q6 PRN PRN Reason: nausea Pneumococcal Polyvalent Vaccine (Pneumovax 23 Vaccine) 0.5 ml IM .ONCE ONE Stop: 05/06/18 10:01 Thiamine HCl (Vitamin B1 Tab) 100 mg PO DAILY [facility] Last Admin: 05/05/18 11:00 Dose: 100 mg Trazodone HCl (Desyrel) 50 mg PO HS [facility] - Labs Labs: 05/05/18 07:06 05/05/18 07:06 PT 14.7 SECONDS (9.7-12.2) H 05/04/18 21:17 INR 1.3 05/04/18 21:17 APTT 38 SECONDS (21-34) H 05/04/18 21:17 - Constitutional Appears: Non-toxic, No Acute Distress - Head Exam Head Exam: NORMAL INSPECTION, NORMOCEPHALIC - Eye Exam Eye Exam: EOMI, Normal appearance. absent: Nystagmus, Scleral icterus - ENT Exam ENT Exam: Mucous Membranes Dry - Respiratory Exam Respiratory Exam: Clear to Ausculation Bilateral, NORMAL BREATHING PATTERN. absent: Rales, Rhonchi, Wheezes - Cardiovascular Exam Cardiovascular Exam: Tachycardia, REGULAR RHYTHM, +S1, +S2 - GI/Abdominal Exam GI & Abdominal Exam: Soft, Normal Bowel Sounds. absent: Distended, Firm, Guarding, Rigid, Tenderness - Extremities Exam Extremities Exam: Normal Inspection. absent: Calf Tenderness, Pedal Edema Additional comments: bilateral significant hand tremors noted - Neurological Exam Neurological Exam: Alert, Awake - Psychiatric Exam Psychiatric exam: Normal Affect, Normal Mood - Skin Skin Exam: Intact, Normal Color Additional comments: no jaundice noted Assessment and Plan - Assessment and Plan (Free Text) Assessment: Patient is a 53 year old male with pmhx of alcohol and IV drug use that came to ED seeking detox. Patient stated that the last drink he had was sitting in the ER. CT abdomen/pelvis shows nodular hepatic contour may be seen in the setting of cirrhosis; echogenic liver may be seen in setting of hepatic parenchymal disease or fatty infiltration; splenomegaly. Plan: Etoh Withdrawal Psych consulted: Dr King- recommendations as below [facility] protocol Fall precaution Seizure precaution Ativan 2mg (taper) Elevated LFTS 2/2 recent alcohol use AST:ALT 2-1 ratio Thrombocytopenia Blood was typed and screen 1 unit of platelets to be trasnfused Repeat BMP pending Substance Abuse: Heroine Currently a patient in [facility] Methadone 75mg daily PPX Diet: HHD SCDs contraindicated: Lower Ext. skin changes. DVT/VVT contraindication: Thrombocytopenia
[2018-05-05] MEDS: Folic Acid 1 MG, Thiamine 100 MG, Multivitamin (MVI) 10 ML in Dextrose 5% In Water 1,00... IV SCH (21:09)
[2018-05-05 23:28] VITALS: RESP 20
--- NOTE | 2018-05-06 00:06 | PCM.PSYCH ---
Initial Psychiatric Evaluation - Initial Psychiatric Evaluation Type of Admission: Voluntary Legal Status: Capacity Chief Complaint (in patient's own words): "Withdrawing" History of Present Illness and Precipitating Events: The pt is seen, chart reviewed and case discussed He is known from previous admissions Consult was requested for his alcohol and opioid use. He is a poor historian, info is gathered from chart and the pt. [employer] Re[employer] Worker also called and confirmed his methadone dose from [facility] in [place] this morning. His dose was 75 mg and he took it yesterday as per nurse Arrington. Patient is a 53 years old, , unemployed, on SSI, male with no previous psychiatric history was admitted due to liver cirrhosis and severe thrombocytopenia from alcohol. Translation used. Patient reported he had started drinking alcohol at 6 years of age. Currently he was drinking 1-2 pints of alcohol daily. Last used yesterday. His longest period of abstinence was 5 years, 5 years ago history of one previous detox but no rehabilitation. Started using heroin at 16 years of age, increased gradually. Currently he denies using it and is on M[facility] at [facility], dose is 75 mg. Denied use of any other drugs including cocaine and cannabis. Denied smoking cigarettes. He feels depressed but not suicidal. No akren. He is slightly confused and forgetful. Patient was born in [place], moved to [facility] 20 years ago with family . Not working and is on SSI. and has 6 grown up children. Lives with friends. Current Medications: Active Medications Generic Name Dose Route Start Last Admin Trade Name Freq PRN Reason Stop Dose Admin Folic Acid 1 mg/ Thiamine HCl 1,011.2 mls @ 75 mls/hr 05/04/18 19:30 05/05/18 21:09 100 mg/ Multivitamins/Vitamin IV 75 mls/hr C 10 ml/ Dextrose Q24H [facility] Administration Sodium Chloride 1,000 mls @ 100 mls/hr 05/05/18 08:15 05/05/18 19:00 Sodium Chloride 0.9% IV 100 mls/hr .Q10H [facility] Administration Ibuprofen 600 mg 05/05/18 17:02 Motrin Tab PO Q6 PRN Fever >100.4 F Influenza Virus Vaccine 60 mcg 05/06/18 10:00 Fluzone Quad [id number] IM 05/06/18 10:01 .ONCE ONE Lorazepam 1 mg 05/05/18 12:00 05/05/18 23:59 Ativan IVP 05/09/18 11:59 1 mg Q6H [facility] Administration Taper Methadone HCl 40 mg 05/06/18 10:00 Methadose PO DAILY [facility] Methadone HCl 30 mg 05/06/18 10:00 Methadone PO DAILY [facility] Methadone HCl 5 mg 05/06/18 10:00 Methadone PO DAILY [facility] Multivitamins/Vitamin C 5 ml 05/05/18 10:00 05/05/18 11:00 Multi-Delyn Liquid PO 5 ml DAILY [facility] Administration Ondansetron HCl 4 mg 05/05/18 09:06 Zofran Inj IVP Q6 PRN nausea Pneumococcal Polyvalent Vaccine 0.5 ml 05/06/18 10:00 Pneumovax 23 Vaccine IM 05/06/18 10:01 .ONCE ONE Thiamine HCl 100 mg 05/05/18 10:00 05/05/18 11:00 Vitamin B1 Tab PO 100 mg DAILY [facility] Administration Trazodone HCl 50 mg 05/05/18 22:00 05/05/18 21:09 Desyrel PO 50 mg HS [facility] Administration Past Psychiatric History - Past Psychiatric History Previous Treatment History: None Pertinent Medical Hx (Current Medical&Sleep Prob, Allergies): Allergies Allergy/AdvReac Type Severity Reaction Status Date / Time No Known Allergies Allergy Verified 05/04/18 13:35 Labetalol [Trandate] 100 mg PO BID 08/12/17 Thiamine Mononitrate [Vitamin B-1] 100 mg PO DAILY 08/12/17 Folic Acid 1 mg PO DAILY 30 Days tab 02/16/18 Lactulose 20 gm PO DAILY 10 Days solution 02/16/18 Multivitamins [Hexavitamin] 1 tab PO DAILY 30 Days tab 02/16/18 Pantoprazole Sodium [Protonix] 40 mg PO DAILY #30 tablet. 02/16/18 Review of Systems - Neurological Neurological: Tremor - Psychiatric Psychiatric: Abnormal Sleep Pattern, Anhedonia, Anxiety, Confusion, Depression, Difficulty Concentrating, Memory Loss. absent: Hallucinations, Homicidal Ideation, Paranoia, Suicidal Ideation Mental Status Examination - Personal Presentation Personal Presentation: Looks older than stated age - Affect Affect: Constricted - Motor Activity Motor Activity: Calm - Reliability in Providing Information Reliability in Providing Information: Fair - Speech Speech: Disorganized - Mood Mood: Depressed, Anxious - Formal Thought Process Formal Thought Process: No Impairment - Cognitive Functions Orientation: Person, Place Sensorium: Drowsy Attention/Concentration: Easily distracted Abstract Thinking: [place] Estimate of Intelligence: Below average Judgement: Imparied, as evidence by: Poor judgement Memory: Recent impaired, as evidence by: Inability to recall events of the day, Remote impaired as evidenced by: Inability to recall sig life events - Risk Risk: Seizure, Withdrawal, Diminished functioning - Strength & Assets Inventory Strength & Assets Inventory: Cooperative - Limitations Limitations: Living alone DSM 5 DX - DSM 5 DSM 5 Diagnosis: Alcohol withdrawal Alcohol use d/o - severe Opioid use d/o - severe, on maintenance Depressive d/o - unspecified r/o pending delirium - Recommended/Plan of Treatment Treatment Recommendations and Plan of Treatment: Ativan taper Methadone 75 mg/d Ammonia level Monitor cognition Support and psychoed Safety checks Vitamins, hydration 33 min
[2018-05-06] MEDS: Sodium Chloride 0.9% 1,000 ML IV SCH ×3 (05:22→14:43)
[2018-05-06 08:16] LABS: BASO % 0.4 % (0.0-2.0); EOS % 0.3 % (0.0-4.0); HEMOGLOBIN 10.1 g/dL (12.0-18.0); LYMPH # 0.8 K/uL (1.0-4.3); LYMPH % 40.1 % (20.0-40.0); MEAN CELL VOLUME 93.6 fL (80.0-94.0); MEAN CORPUSCULAR HEMOGLOBIN 31.7 pg (27.0-31.0); MEAN CORPUSCULAR HGB CONC 33.8 g/dL (33.0-37.0); MEAN PLATELET VOLUME 8.7 fL (7.2-11.7); MONO # 0.3 K/uL (0.0-0.8); MONO % 13.6 % (0.0-10.0); NEUT # 0.9 K/uL (1.8-7.0); NEUT % 45.6 % (50.0-75.0); NRBC % 0.5 % (0.0-2.0); RBC 3.2 Mil/uL (4.40-5.90); RED CELL DISTRIBUTION WIDTH 19.3 % (11.5-14.5)
[2018-05-06 08:18] LABS: ALB/GLOB RATIO 0.9 (1.0-2.1); ALBUMIN 3.4 g/dL (3.5-5.0); ALT/SGPT 25 U/L (21-72); AST/SGOT 87 U/L (17-59); BLOOD UREA NITROGEN 8 mg/dL (9-20); CALCIUM 7.9 mg/dl (8.6-10.4); GFR NON-AFRICAN AMERICAN > 60
[2018-05-06 08:33] LABS: WHITE BLOOD COUNT 1.9 K/uL (4.8-10.8)
[2018-05-06] MEDS: Methadone 40 mg Tab PO SCH (09:47)
[2018-05-06] MEDS: Multiple Vitamins Oral Solution PO SCH (09:50)
[2018-05-06] MEDS ORDERED: Potassium Chloride 20 mEq ER Tab PO ONE (10:00)
[2018-05-06] MEDS ORDERED: Pneumococcal 23-Valent Vaccine IM ONE (10:00)
[2018-05-06] MEDS ORDERED: Influenza Vaccine 60 MCG/0.5 ML SYR (3 yr & up) IM ONE (10:00)
--- NOTE | 2018-05-06 11:56 | CP.PCM.PN ---
Subjective - Date & Time of Evaluation Date of Evaluation: 05/06/18 Time of Evaluation: 11:53 - Subjective Subjective: Medicine Note for Dr. Rider's Service Patient was seen and examined at bedside. Patient is arousable but enceph alopathic. ROS unattainable as patient is altered. Objective - Vital Signs/Intake and Output Vital Signs (last 24 hours): Temp Pulse Resp BP Pulse Ox 100.7 F H 106 H 20 127/78 96 05/06/18 07:19 05/06/18 07:19 05/06/18 07:19 05/06/18 07:19 05/06/18 07:19 Intake and Output: 05/06/18 05/06/18 06:59 18:59 Intake Total 840 Output Total 300 Balance 540 - Medications Medications: Current Medications Folic Acid (Folic Acid) 1 mg PO DAILY [facility] Last Admin: 05/06/18 09:50 Dose: 1 mg Sodium Chloride (Sodium Chloride 0.9%) 1,000 mls @ 100 mls/hr IV .Q10H [facility] Last Admin: 05/06/18 05:22 Dose: Not Given Ibuprofen (Motrin Tab) 600 mg PO Q6 PRN PRN Reason: Fever >100.4 F Lactulose (Enulose) 20 gm PO Q12 [facility] Last Admin: 05/06/18 09:47 Dose: 20 gm Lorazepam (Ativan) 1 mg IVP Q6H [facility]; Taper Stop: 05/09/18 11:59 Last Admin: 05/06/18 05:54 Dose: 1 mg Methadone HCl (Methadose) 40 mg PO DAILY [facility] Last Admin: 05/06/18 09:47 Dose: 40 mg Methadone HCl (Methadone) 30 mg PO DAILY [facility] Last Admin: 05/06/18 09:50 Dose: 30 mg Methadone HCl (Methadone) 5 mg PO DAILY [facility] Last Admin: 05/06/18 09:48 Dose: 5 mg Multivitamins/Vitamin C (Multi-Delyn Liquid) 5 ml PO DAILY [facility] Last Admin: 05/06/18 09:50 Dose: 5 ml Ondansetron HCl (Zofran Inj) 4 mg IVP Q6 PRN PRN Reason: nausea Thiamine HCl (Vitamin B1 Tab) 100 mg PO DAILY [facility] Last Admin: 05/06/18 09:48 Dose: 100 mg Trazodone HCl (Desyrel) 50 mg PO HS [facility] Last Admin: 05/05/18 21:09 Dose: 50 mg - Labs Labs: 05/06/18 07:55 05/06/18 07:55 PT 14.7 SECONDS (9.7-12.2) H 05/04/18 21:17 INR 1.3 05/04/18 21:17 APTT 38 SECONDS (21-34) H 05/04/18 21:17 - Constitutional Appears: Unkempt, Confused - Head Exam Head Exam: NORMAL INSPECTION, NORMOCEPHALIC - Eye Exam Eye Exam: Normal appearance. absent: Nystagmus, Scleral icterus - ENT Exam ENT Exam: Mucous Membranes Dry - Respiratory Exam Respiratory Exam: Clear to Ausculation Bilateral, NORMAL BREATHING PATTERN. absent: Decreased Breath Sounds - Cardiovascular Exam Cardiovascular Exam: +S1, +S2. absent: Tachycardia - GI/Abdominal Exam GI & Abdominal Exam: Distended, Soft, Normal Bowel Sounds. absent: Rigid, Tenderness, Hernia, Mass - Extremities Exam Extremities Exam: Normal Inspection. absent: Pedal Edema, Tenderness - Neurological Exam Neurological Exam: Altered - Skin Skin Exam: Dry, Intact, Normal Color, Warm Assessment and Plan - Assessment and Plan (Free Text) Assessment: Patient is a 53 year old male with pmhx of alcohol and IV drug use that came to ED seeking detox. Patient stated that the last drink he had was sitting in the ER. CT abdomen/pelvis shows nodular hepatic contour may be seen in the setting of cirrhosis; echogenic liver may be seen in setting of hepatic parenchy mal disease or fatty infiltration; splenomegaly. Plan: Hepatic Encephalopathy - Altered - Ammonia elevated, INR 1.3, Albumin 3.4 - Abdominal US: cirrhosis noted, no signs of ascites - Started Lactulose q12 [facility], to hold if more than 3-4 BM per day Febrile - 100.7 Tmax after PLT transfusion - Pancultured - Abdominal US did not reveal ascites, despite fluid wave shift on exam; Given one dose of rocephin to cover for SBP Etoh Withdrawal Transaminitis Psych consulted: Dr King- recommendations as below [facility] protocol Fall precaution Seizure precaution Ativan 1mg (taper) Thrombocytopenia Blood was typed and screen 1 unit of platelets to be transfused Substance Abuse: Heroine Currently a patient in [facility] Methadone 75mg daily PPX Diet: HHD SCDs contraindicated: Lower Ext. skin changes. DVT/VVT contraindication: Thrombocytopenia Case discussed with Dr. Rider, Nancy Bradshaw DO, PGY2
--- NOTE | 2018-05-06 17:19 | RAD ---
Date of service: 05/06/2018 HISTORY: febrile, cough COMPARISON: Portable chest 02/07/2018. FINDINGS: LUNGS: Diminished pulmonary volumes noted. Questionable increased interstitial markings bilaterally. No alveolar infiltrates bilaterally. Questionable interstitial pneumonitis. PLEURA: No significant pleural effusion identified, no pneumothorax apparent. CARDIOVASCULAR: No aortic atherosclerotic calcification present. Stable cardiac silhouette. Potential limited pulmonary vascular congestion. OSSEOUS STRUCTURES: No significant abnormalities. VISUALIZED UPPER ABDOMEN: Normal. OTHER FINDINGS: None. IMPRESSION: Questionable interstitial infiltrates bilaterally versus pulmonary vascular congestion. Exam otherwise stable and unremarkable.
[2018-05-07] MEDS: Sodium Chloride 0.9% 1,000 ML IV SCH ×3 (00:18→10:20)
[2018-05-07 08:20] LABS: BASO % 0.3 % (0.0-2.0); EOS % 0.6 % (0.0-4.0); HEMOGLOBIN 10.1 g/dL (12.0-18.0); LYMPH # 0.8 K/uL (1.0-4.3); LYMPH % 31.2 % (20.0-40.0); MEAN CELL VOLUME 94.9 fL (80.0-94.0); MEAN CORPUSCULAR HEMOGLOBIN 31.6 pg (27.0-31.0); MEAN CORPUSCULAR HGB CONC 33.3 g/dL (33.0-37.0); MEAN PLATELET VOLUME 9.8 fL (7.2-11.7); MONO # 0.4 K/uL (0.0-0.8); MONO % 14.5 % (0.0-10.0); NEUT # 1.4 K/uL (1.8-7.0); NEUT % 53.4 % (50.0-75.0); NRBC % 0.4 % (0.0-2.0); RBC 3.19 Mil/uL (4.40-5.90); RED CELL DISTRIBUTION WIDTH 20.1 % (11.5-14.5); WHITE BLOOD COUNT 2.6 K/uL (4.8-10.8)
[2018-05-07 08:22] LABS: ALB/GLOB RATIO 0.8 (1.0-2.1); ALBUMIN 3.2 g/dL (3.5-5.0); ALT/SGPT 22 U/L (21-72); AST/SGOT 69 U/L (17-59); BLOOD UREA NITROGEN 11 mg/dL (9-20); GFR NON-AFRICAN AMERICAN > 60
[2018-05-07] MEDS: Magnesium Sulfate 1 gm in D5W 1 GM/100 ML BAG IVPB SCH ×2 (08:46→10:10)
[2018-05-07] MEDS: Methadone 40 mg Tab PO SCH (10:11)
[2018-05-07] MEDS: Multiple Vitamins Oral Solution PO SCH (10:12)
--- NOTE | 2018-05-07 10:57 | CP.PCM.PN ---
Subjective - Date & Time of Evaluation Date of Evaluation: 05/07/18 Time of Evaluation: 10:47 - Subjective Subjective: Medicine Note for Dr. Rider's Service Patient was seen and examined at bedside. Patient is more awake and alert, he is not oriented to place or time. Denied any fever, chills, headache shortness of breath, abdominal pain, n/v/d/c, or urinary symptoms. Objective - Vital Signs/Intake and Output Vital Signs (last 24 hours): Temp Pulse Resp BP Pulse Ox 100.0 F H 97 H 20 117/76 96 05/07/18 07:30 05/07/18 07:30 05/07/18 07:30 05/07/18 07:30 05/07/18 07:30 Intake and Output: 05/07/18 05/07/18 06:59 18:59 Intake Total 1840 Balance 1840 - Medications Medications: Current Medications Folic Acid (Folic Acid) 1 mg PO DAILY [facility] Last Admin: 05/07/18 10:12 Dose: 1 mg Ibuprofen (Motrin Tab) 600 mg PO Q6 PRN PRN Reason: Fever >100.4 F Lactulose (Enulose) 20 gm PO Q12 [facility] Last Admin: 05/07/18 10:12 Dose: 20 gm Lorazepam (Ativan) 1 mg IVP Q8H [facility]; Taper Stop: 05/09/18 11:59 Last Admin: 05/07/18 04:24 Dose: 1 mg Methadone HCl (Methadose) 40 mg PO DAILY [facility] Last Admin: 05/07/18 10:11 Dose: 40 mg Methadone HCl (Methadone) 30 mg PO DAILY [facility] Last Admin: 05/07/18 10:11 Dose: 30 mg Methadone HCl (Methadone) 5 mg PO DAILY [facility] Last Admin: 05/07/18 10:12 Dose: 5 mg Multivitamins/Vitamin C (Multi-Delyn Liquid) 5 ml PO DAILY [facility] Last Admin: 05/07/18 10:12 Dose: 5 ml Ondansetron HCl (Zofran Inj) 4 mg IVP Q6 PRN PRN Reason: nausea Thiamine HCl (Vitamin B1 Tab) 100 mg PO DAILY [facility] Last Admin: 05/07/18 10:12 Dose: 100 mg Trazodone HCl (Desyrel) 50 mg PO HS [facility] Last Admin: 05/06/18 21:22 Dose: 50 mg - Labs Labs: 05/07/18 07:49 05/07/18 07:49 PT 14.7 SECONDS (9.7-12.2) H 05/04/18 21:17 INR 1.3 05/04/18 21:17 APTT 38 SECONDS (21-34) H 05/04/18 21:17 - Additional Findings Additional findings: - Constitutional Appears: Unkempt, Confused - Head Exam Head Exam: NORMAL INSPECTION, NORMOCEPHALIC - Eye Exam Eye Exam: Normal appearance. absent: Nystagmus, Scleral icterus - ENT Exam ENT Exam: Mucous Membranes Dry - Respiratory Exam Respiratory Exam: Clear to Ausculation Bilateral, NORMAL BREATHING PATTERN. absent: Decreased Breath Sounds - Cardiovascular Exam Cardiovascular Exam: +S1, +S2. absent: Tachycardia - GI/Abdominal Exam GI & Abdominal Exam: Distended, Soft, Normal Bowel Sounds. absent: Rigid, Tenderness, Hernia, Mass - Extremities Exam Extremities Exam: Normal Inspection. absent: Pedal Edema, Tenderness - Neurological Exam Neurological Exam: Altered - Skin Skin Exam: Dry, Intact, Normal Color, Warm Assessment and Plan - Assessment and Plan (Free Text) Assessment: Patient is a 53 year old male with pmhx of alcohol and IV drug use that came to ED seeking detox. Patient stated that the last drink he had was sitting in the ER. CT abdomen/pelvis shows nodular hepatic contour may be seen in the setting of cirrhosis; echogenic liver may be seen in setting of hepatic parenchymal disease or fatty infiltration; splenomegaly. Plan: Hepatic Encephalopathy - Altered - Ammonia elevated, INR 1.3, Albumin 3.4 - Abdominal US: cirrhosis noted, no signs of ascites - Started Lactulose q12 GERALD, to hold if more than 3-4 BM per day Pneumonia?? Febrile - 100.7 Tmax after PLT transfusion - Abdominal US did not reveal ascites, despite fluid wave shift on exam; Given one dose of rocephin to cover for SBP - Pancultured - blood cultures negative to date, CXR possible bilateral lower lobe infiltrates versus congestion - Will start Rocephin and Azithro Etoh Withdrawal Transaminitis Psych consulted: Dr King- recommendations as below [facility] protocol Fall precaution Seizure precaution Ativan 1mg (taper) Thrombocytopenia Blood was typed and screen 1 unit of platelets to be transfused Substance Abuse: Heroine Currently a patient in [facility] Methadone 75mg daily PPX Diet: HHD SCDs contraindicated: Lower Ext. skin changes. DVT/VVT contraindication: Thrombocytopenia Case discussed with Dr. Rider, Nancy Bradshaw DO, PGY2
[2018-05-07] MEDS: Azithromycin 500 MG in Sodium Chloride 0.9% 250 ML IVPB SCH (11:21)
[2018-05-07] MEDS ORDERED: cefTRIAXone IV 1 gm in Dextros 50 ML IVPB ONE (13:00)
[2018-05-07] MEDS: Lactobacillus Acidophilus 500 MU Cap PO SCH (17:49)
[2018-05-08 01:35] VITALS: O2SAT 96
[2018-05-08 06:31] LABS: BASO % 0.5 % (0.0-2.0); EOS % 1.1 % (0.0-4.0); HEMOGLOBIN 10.7 g/dL (12.0-18.0); LYMPH % 34.9 % (20.0-40.0); MEAN CELL VOLUME 96.2 fL (80.0-94.0); MEAN CORPUSCULAR HEMOGLOBIN 31.4 pg (27.0-31.0); MEAN CORPUSCULAR HGB CONC 32.7 g/dL (33.0-37.0); MEAN PLATELET VOLUME 9.6 fL (7.2-11.7); MONO # 0.5 K/uL (0.0-0.8); MONO % 16.6 % (0.0-10.0); NEUT # 1.3 K/uL (1.8-7.0); NEUT % 46.9 % (50.0-75.0); NRBC % 0.3 % (0.0-2.0); RBC 3.39 Mil/uL (4.40-5.90); RED CELL DISTRIBUTION WIDTH 20.7 % (11.5-14.5); WHITE BLOOD COUNT 2.8 K/uL (4.8-10.8)
[2018-05-08 06:45] LABS: ALB/GLOB RATIO 0.8 (1.0-2.1); ALBUMIN 3.5 g/dL (3.5-5.0); ALT/SGPT 24 U/L (21-72); AST/SGOT 60 U/L (17-59); BLOOD UREA NITROGEN 12 mg/dL (9-20); CALCIUM 7.9 mg/dl (8.6-10.4); GFR NON-AFRICAN AMERICAN > 60
[2018-05-08 08:32] VITALS: BP 116/76; PULSE 81; TEMP 98.5
[2018-05-08] MEDS: Methadone 40 mg Tab PO SCH (09:29)
[2018-05-08] MEDS: Lactobacillus Acidophilus 500 MU Cap PO SCH (09:30)
[2018-05-08] MEDS: Multiple Vitamins Oral Solution PO SCH (09:30)
[2018-05-08] MEDS: Azithromycin 500 MG in Sodium Chloride 0.9% 250 ML IVPB SCH (09:53)
[2018-05-08] MEDS ORDERED: cefTRIAXone IV 1 gm in Dextros 50 ML IVPB SCH (10:00)
--- NOTE | 2018-05-08 12:54 | CP.PCM.DIS ---
Provider - Provider Date of Admission: 05/04/18 17:40 Attending physician: Tim Rider Jr, MD Consults: 05/04/18 17:51 Psychiatry Consult Stat Comment: Consulting Provider: Lenka King Consulting Physician: Lenka Kign Reason for Consult: Detox Time Spent in preparation of Discharge (in minutes): 70 Hospital Course - Lab Results Lab Results: Micro Results 05/06/18 11:51 Blood-Venous Blood Culture - Preliminary NO GROWTH AFTER 48 HOURS 05/06/18 10:40 Blood-Venous Blood Culture - Preliminary NO GROWTH AFTER 48 HOURS 05/06/18 14:38 Urine Urine Culture - Preliminary Gram Positive Cocci Most Recent Lab Values WBC 2.8 K/uL (4.8-10.8) L 05/08/18 06:25 RBC 3.39 Mil/uL (4.40-5.90) L 05/08/18 06:25 Hgb 10.7 g/dL (12.0-18.0) L 05/08/18 06:25 Hct 32.6 % (35.0-51.0) L 05/08/18 06:25 MCV 96.2 fL (80.0-94.0) H 05/08/18 06:25 MCH 31.4 pg (27.0-31.0) H 05/08/18 06:25 MCHC 32.7 g/dL (33.0-37.0) L 05/08/18 06:25 RDW 20.7 % (11.5-14.5) H 05/08/18 06:25 Plt Count 28 K/uL (130-400) L* 05/08/18 06:25 MPV 9.6 fL (7.2-11.7) 05/08/18 06:25 Neut % (Auto) 46.9 % (50.0-75.0) L 05/08/18 06:25 Lymph % (Auto) 34.9 % (20.0-40.0) 05/08/18 06:25 [place] % (Auto) 16.6 % (0.0-10.0) H 05/08/18 06:25 Eos % (Auto) 1.1 % (0.0-4.0) 05/08/18 06:25 Baso % (Auto) 0.5 % (0.0-2.0) 05/08/18 06:25 Neut # (Auto) 1.3 K/uL (1.8-7.0) L 05/08/18 06:25 Lymph # (Auto) 1.0 K/uL (1.0-4.3) 05/08/18 06:25 [place] # (Auto) 0.5 K/uL (0.0-0.8) 05/08/18 06:25 Eos # (Auto) 0.0 K/uL (0.0-0.7) 05/08/18 06:25 Baso # (Auto) 0.0 K/uL (0.0-0.2) 05/08/18 06:25 Differential Comment 05/07/18 07:49 Smear Path Review 05/04/18 14:13 PT 14.7 SECONDS (9.7-12.2) H 05/04/18 21:17 INR 1.3 05/04/18 21:17 APTT 38 SECONDS (21-34) H 05/04/18 21:17 Sodium 135 mmol/L (132-148) 05/08/18 06:25 Potassium 4.0 mmol/L (3.6-5.2) 05/08/18 06:25 Chloride 107 mmol/L (98-107) 05/08/18 06:25 Carbon Dioxide 18 mmol/L (22-30) L 05/08/18 06:25 Anion Gap 15 (10-20) 05/08/18 06:25 BUN 12 mg/dL (9-20) 05/08/18 06:25 Creatinine 0.6 mg/dL (0.8-1.5) L 05/08/18 06:25 Est GFR ( Amer) > 60 05/08/18 06:25 Est GFR (Non-Af Amer) > 60 05/08/18 06:25 POC Glucose (mg/dL) 113 mg/dL (65-110) H 05/08/18 11:22 Random Glucose 105 mg/dL (75-110) 05/08/18 06:25 Calcium 7.9 mg/dl (8.6-10.4) L 05/08/18 06:25 Phosphorus 3.9 mg/dL (2.5-4.5) 05/08/18 06:25 Magnesium 1.6 mg/dL (1.6-2.3) 05/08/18 06:25 Total Bilirubin 1.6 mg/dL (0.2-1.3) H 05/08/18 06:25 AST 60 U/L (17-59) H 05/08/18 06:25 ALT 24 U/L (21-72) 05/08/18 06:25 Alkaline Phosphatase 87 U/L (38-126) 05/08/18 06:25 Ammonia 71 umol/L (9-33) H D 05/07/18 07:49 Total Protein 7.6 g/dL (6.3-8.3) 05/08/18 06:25 Albumin 3.5 g/dL (3.5-5.0) 05/08/18 06:25 Globulin 4.1 gm/dL (2.2-3.9) H 05/08/18 06:25 Albumin/Globulin Ratio 0.8 (1.0-2.1) L 05/08/18 06:25 Urine Color Yellow (YELLOW) 05/04/18 14:13 Urine Clarity Clear (Clear) 05/04/18 14:13 Urine pH 7.0 (5.0-8.0) 05/04/18 14:13 Ur Specific [place] 1.018 (1.003-1.030) 05/04/18 14:13 Urine Protein 2+ mg/dL (NEGATIVE) H 05/04/18 14:13 Urine Glucose (UA) Normal mg/dL (Normal) 05/04/18 14:13 Urine Ketones Negative mg/dL (NEGATIVE) 05/04/18 14:13 Urine Blood 2+ (NEGATIVE) H 05/04/18 14:13 Urine Nitrate Negative (NEGATIVE) 05/04/18 14:13 Urine Bilirubin Negative (NEGATIVE) 05/04/18 14:13 Urine Urobilinogen 4.0 mg/dL (0.2-1.0) 05/04/18 14:13 Ur Leukocyte Esterase Neg [place]/uL (Negative) 05/04/18 14:13 Urine RBC (Auto) 3 /hpf (0-3) 05/04/18 14:13 Ur Squamous Epith Cells < 1 /hpf (0-5) 05/04/18 14:13 Urine Opiates Screen Negative (NEGATIVE) 05/04/18 14:13 Urine Methadone Screen Positive (NEGATIVE) H 05/04/18 14:13 Ur Barbiturates Screen Negative (NEGATIVE) 05/04/18 14:13 Ur Phencyclidine Scrn Negative (NEGATIVE) 05/04/18 14:13 Ur Amphetamines Screen Negative (NEGATIVE) 05/04/18 14:13 U Benzodiazepines Scrn Negative (NEGATIVE) 05/04/18 14:13 U Oth Cocaine Metabols Negative (NEGATIVE) 05/04/18 14:13 U Cannabinoids Screen Negative (NEGATIVE) 05/04/18 14:13 Alcohol, Quantitative 390 mg/dl (0-10) H 05/04/18 14:13 HIV 1&2 Antibody Screen Negative (NEGATIVE) 05/07/18 13:53 Blood Type O POSITIVE 05/05/18 11:39 Antibody Screen Negative 05/05/18 11:39 - Hospital Course Hospital Course: Upon Admission: Patient is a 53 year old male with pmhx of alcohol and IV drug use that came to ED seeking detox. Patient stated that the last drink he had was sitting in the ER. Patient has been drinking all the time, about 3 pints of vodka in the am and 3 pints at night time for the past 4 months. Patient had stopped drinking for 7 months previous to restarting again. Patient states he does not use IV drugs currently, having quitted 7 years ago and is currently on methadone treatment at a local clinic. Patient admits to noticing his right leg getting swollen in the past 2 days, denies any trauma or any lacerations or using needles in the extremity. Patient has no other symptoms. Denies fevers, chills, chest pain, shortness of breath, n/v/d/c, no weight loss, no sick contacts, no appetite loss, no urinary symptoms. CT of the abdomen showed cirrhosis. CBC showed thrombocytopenia. CXR showed questionable infiltrates. Pt was admitted for thrombocytopenia and alcohol withdrawal. Hospital Course: Pt was monitored for alcohol withdrawal and was given ativan and started on CIWA protocol. He was also given folate, multivitamin, and thiamine. Psychiatry was consulted and prescribed the methodone, as pt visits [facility] clinic. Trazodone was also given. Pt was started on lactulose for liver cirrhosis. Pt was started on ceftriaxone and azithromycin for possible pneumonia. Pt had UCx + for Gram + cocci in clusters. Pt was deemed stable for discharge, as he did not show any signs of withdrawal. Upon Discharge: Pt was discharged with instructions to follow up with his primary care physician within 1 week. He was advised to avoid alcohol or drug use. He was given bactrim upon discharge for uncomplicated UTI. He was instructed to take his newly prescribed medications. He understood instructions. Discharge Exam - Head Exam Head Exam: ATRAUMATIC, NORMAL INSPECTION, NORMOCEPHALIC - Eye Exam Eye Exam: EOMI, Normal appearance, PERRL Pupil Exam: NORMAL ACCOMODATION - Respiratory Exam Respiratory Exam: Clear to PA & Lateral, NORMAL BREATHING PATTERN. absent: Rales, Rhonchi, Wheezes, Respiratory Distress - Cardiovascular Exam Cardiovascular Exam: REGULAR RHYTHM, +S1, +S2. absent: Gallop, Rubs, Systolic Murmur - GI/Abdominal Exam GI & Abdominal Exam: Normal Bowel Sounds, Soft. absent: Distended, Firm, Tenderness - Extremities Exam Extremities exam: normal inspection - Back Exam Back exam: NORMAL INSPECTION - Neurological Exam Neurological exam: CN II-XII Intact, Reflexes Normal Additional comments: AAOx1, to person - Psychiatric Exam Psychiatric exam: Normal Affect, Normal Mood - Skin Skin Exam: Normal Color Discharge Plan - Discharge Medications Prescriptions: Folic Acid 1 mg PO DAILY 30 Days tab Labetalol [Trandate] 100 mg PO BID #60 tab Lactobacillus Acidophilus [Bacid Acidophilus] 1 cap PO BID 14 Days #28 cap Lactulose 20 gm PO DAILY 10 Days solution Multivitamins [Hexavitamin] 1 tab PO DAILY 30 Days tab Nitrofurantoin Macrocrystals [Macrobid] 100 mg PO BID #10 cap Pantoprazole Sodium [Protonix] 40 mg PO DAILY #30 tablet. Spironolactone [Aldactone] 50 mg PO BID #60 tablet Thiamine [Vitamin B1 Tab] 100 mg PO DAILY #30 tab Thiamine Mononitrate [Vitamin B-1] 100 mg PO DAILY #30 tablet - Follow Up Plan Condition: GUARDED Disposition: HOME/ ROUTINE Additional Instructions: Please follow up with your primary care physician within 1 week. Please refrain from drinking alcohol or using drugs as it can worsen your condition. Please take your medications as prescribed. Please return to the emergency department if symptoms return. Take care and be well. Por favor aneudy un seguimiento con garcia mdico primario dentro de 1 semana. Por favor, abstngase de beber alcohol o usar drogas, ya que puede empeorar garcia condicin. Por favor, tome marcia medicamentos segn lo prescrito. Por favor regrese al departamento de emergencias si los sntomas regresan. Cudate y sintete ann.
== END 2018-05-08 14:18 | disposition home or self-care (01) | DRG 808 ==
LOC: C.ER 13:24 → C.9E 17:40 → C.3T 18:46
PROVIDERS: ADMIT Internal Medicine; ATTEND Internal Medicine
PROC: HZ2ZZZZ Detoxification Services for Substance Abuse Treatment (ICD-10-PCS; principal; 2018-05-05)
PROC: HZ81ZZZ Medication Management for Substance Abuse Treatment, Methadone Maintenance (ICD-10-PCS; 2018-05-05)
PROC: 6A550Z3 Pheresis of Plasma, Single (ICD-10-PCS; 2018-05-05)
DX: D61.818 Other pancytopenia (principal); F10.230 Alcohol dependence with withdrawal, uncomplicated; F10.220 Alcohol dependence with intoxication, uncomplicated; K70.30 Alcoholic cirrhosis of liver without ascites; J18.9 Pneumonia, unspecified organism; F11.20 Opioid dependence, uncomplicated; N39.0 Urinary tract infection, site not specified; K70.40 Alcoholic hepatic failure without coma; I10 Essential (primary) hypertension; F32.9 Major depressive disorder, single episode, unspecified; B95.61 Methicillin susceptible Staphylococcus aureus infection as the cause of diseases classified elsewhere; Y90.8 Blood alcohol level of 240 mg/100 ml or more; Z83.3 Family history of diabetes mellitus; Z87.01 Personal history of pneumonia (recurrent)